=== PATIENT | female | born 1940 | race Caucasian/White ===

== ENCOUNTER 2016-03-25 21:02 | Inpatient (IN) | payer OTHER, MEDICAID ==
[~2016-03-25] VITALS: Ht 154.9 cm; Wt 64.9 kg
[~2016-03-25 21:02] MED LIST: ASA81 PO; ASPI-934 PO; BISA5TAB10 PO; BUME0.5T3 PO; BUME1TAB4 PO; CARV6.2554 PO; CEPH-568 PO; CLIN-76 PO; CLOP75TA2 PO; COLL30OI2 TP; COR25 PO; CORCR20 PO; DOCU250C PO; FENO134C PO; GABA-529 PO; HUM10VIA3 SUBCUT; INSU100V26 SQ; INSU10VI4 SQ; LOPE2CAP PO; MAGNESIUM; MULT-1089 PO; NITR1PAT6 TD; NITSL SL; OMEP20CA10 PO; PRO40 PO; SACC250C3 PO; SIMV40TA2 PO; TEMA15CA51 PO; TRAM50TA2 PO; [UNRECOGNIZED DRUG - CODE] PO
[2016-03-25 21:20] VITALS: BP 121/93; PULSE 79; RESP 18; TEMP 97.8; O2SAT 96
--- NOTE | 2016-03-25 21:20 | NUR ---
No beds available at this time. VSS. Patient in waiting room with son, able to verbalize needs, no acute distress noted. Will continue to monitor.
--- NOTE | 2016-03-25 21:55 | NUR ---
Placed in room 01 . Placed on flange machine operator, blood pressure machine and pulse oximeter. To gown for exam. Side rails up. Report given to MIGUEL Franklin.
--- NOTE | 2016-03-25 22:20 | NUR ---
Pt. brought in by son to ED with multiple complaints. C/o abdominal, back and flank pain 7-10/22. Pt. also c/o dizziness and productive cough x3 days.
--- NOTE | 2016-03-25 22:21 | NUR ---
ER at bedside examining patient.
[2016-03-25] MEDS ORDERED: NACL 0.9% 1,000 ML IV ONE (22:26)
[2016-03-25 22:49] LABS: BLOOD GAS PH 7.472 (7.350-7.450)
[2016-03-25 22:50] LABS: ABG TOTAL HEMOGLOBIN 12.5 G/dL (12.0-18.0); BLOOD GAS BASE EXCESS -3.4 mmol/L (-3.0-3.0); BLOOD GAS HHB 7.8 % (0.0-6.0); BLOOD O2Hb% 90.7 % (94.0-97.0)
--- NOTE | 2016-03-25 22:57 | NUR ---
# 20 gauge angiocath placed to Right AC. Use of asceptic technique. Opsite placed over site. Blood return noted. Flushed with 10 cc of normal saline. No evidence of infiltration noted. Patient tolerated well.
--- NOTE | 2016-03-25 22:59 | NUR ---
xray at bedside
[2016-03-25 23:04] LABS: BASOPHILS # (AUTO) 0.1 K/uL (0.0-0.2); BASOPHILS % (AUTO) 1.8 % (0.0-2.0); EOSINOPHILS % (AUTO) 0.2 % (0.0-4.0); HEMATOCRIT 35.9 % (36-48); LYMPHOCYTES # (AUTO) 0.5 K/uL (1.0-5.5); LYMPHOCYTES % (AUTO) 6.8 % (20.5-51.5); MEAN CORPUSCULAR HEMOGLOBIN 30 pg (27-31); MEAN CORPUSCULAR HGB CONC 34 % (32-36); MEAN CORPUSCULAR VOLUME 88 fL (79.0-98.0); MONOCYTES # (AUTO) 0.5 K/uL (0.0-1.0); MONOCYTES % (AUTO) 6.7 % (1.7-9.3); NEUTROPHILS # (AUTO) 6.7 K/uL (1.8-7.7); NEUTROPHILS % (AUTO) 84.5 % (40.0-70.0); PLATELET COUNT (AUTO) 228 K/uL (130-430); RED BLOOD CELL COUNT(AUTO) 4.07 MIL/uL (4.2-6.2); RED CELL DISTRIBUTION WIDTH 15.1 % (9.0-15.0); WHITE BLOOD COUNT (AUTO) 7.8 K/uL (4.8-10.8)
[2016-03-25 23:18] LABS: ANION GAP 11 (5-15); CALCIUM 8.5 mg/dL (8.4-11.0); CHLORIDE 91 mmol/L (98-107); CREATININE 1.58 mg/dL (0.55-1.30); GLUCOSE 324 mg/dL (70-99); POTASSIUM 3.6 mmol/L (3.5-5.1); SODIUM SERUM 123 mmol/L (136-145); UREA NITROGEN, BLOOD 33 mg/dL (8-21)
[2016-03-25 23:24] LABS: ALANINE AMINOTRANSFERASE 30 U/L (12-78); ALBUMIN 3.1 g/dL (3.4-4.8); ASPARTATE AMINOTRANSFERASE 81 U/L (10-37); TOTAL BILIRUBIN 1.3 mg/dL (0.0-1.0); TOTAL PROTEIN, SERUM 8.1 g/dL (6.4-8.3)
[2016-03-25] MEDS ORDERED: INSULIN REGULAR, HUMAN 10 UNITS/0.1 ML INJ IVP ONE (23:45)
[2016-03-25 23:58] LABS: BILIRUBIN,URINE 1+ (NEGATIVE); BLOOD, URINE 3+ (NEGATIVE); CLARITY/URINE HAZY (CLEAR); COLOR,URINE YELLOW (YELLOW); GLUCOSE,URINE 3+ (NEGATIVE); KETONES,URINE NEGATIVE (NEGATIVE); LEUKOCYTE ESTERASE ,URINE NEGATIVE (NEGATIVE); NITRITE, URINE POSITIVE (NEGATIVE); PROTEIN URINE 3+ (NEGATIVE)
[2016-03-26] VITALS (8 sets, daily range): BP systolic 96–156; BP diastolic 61–78; PULSE 58–82; RESP 16–24; TEMP 96.2–100.2; O2SAT 92–99
[2016-03-26] MEDS ORDERED: MORPHINE 4 MG/ML INJ. SYRINGE IVP ONE
[2016-03-26 00:12] LABS: BACTERIA,URINE MANY /HPF (None Seen); MUCUS,URINE 1+ /LPF (None Seen)
[2016-03-26] MEDS ORDERED: FUROSEMIDE 40 MG/4 ML VIAL IVP ONE (00:15)
--- NOTE | 2016-03-26 00:48 | NUR ---
Pt. transfered to [facility] 128A as per ACLS protocol, stable for transfer at this time
--- NOTE | 2016-03-26 00:51 | NUR ---
Bedside report given to receiving RN
--- NOTE | 2016-03-26 00:54 | NUR ---
ADMISSION NOTE Received patient from ER via gurney. Patient admitted with diagnosis of CHF . Patient is awake, alert, oriented X 3. Patient oriented to hospital room, call light, toileting, pain management and safety-teach back done. Patient informed that MIGUEL MILLER will be HER nurse and that their room number is 128A. Personal belongings checked and Belongings List documented. Call light within reach.
[2016-03-26] MEDS ORDERED: NOR10 PO (00:56)
[2016-03-26] MEDS ORDERED: FLA250 PO (00:56)
[2016-03-26] MEDS ORDERED: LIPA1CAP23 PO (00:56)
[2016-03-26] MEDS ORDERED: FURO20TA4 PO (00:56)
[2016-03-26] MEDS ORDERED: CEPH500C2 PO (00:56)
[2016-03-26] MEDS ORDERED: OSEL75CA PO (00:56)
[2016-03-26] MEDS ORDERED: FLU VACC QS 2016-17(36MOS+)/PF 0.5 ML/SYR SYRINGE I.M. PRN (01:30)
--- NOTE | 2016-03-26 02:45 | NUR ---
CRITICAL LAB VALUE LAB CALLED FOR POSITIVE INFLUENZA A, PAGED DR. COLON TWICE, STILL AWAITING CALL BACK. PATIENT PLACED ON ISOLATION PRECAUTIONS, SON AT BEDSIDE, MADE AWARE OF ISOLATION PRECAUTIONS, VERBALIZED UNDERSTANDING.
--- NOTE | 2016-03-26 04:06 | NUR ---
RN ROUNDS PATIENT STILL HAS TEMP OF 100.1, COOLING MEASURES APPLIED. PAGED DR. COLON, AWAITING CALL BACK.
[2016-03-26] MEDS ORDERED: ACETAMINOPHEN 325 MG TABLET ONE (06:30)
[2016-03-26] MEDS ORDERED: ACETAMINOPHEN 325 MG TABLET PO PRN (06:45)
[2016-03-26] MEDS ORDERED: BISACODYL 5 MG TABLET.DR (DULCOLAX) PO PRN (07:00)
--- NOTE | 2016-03-26 07:30 | NUR ---
OPENING NOTE REPORT RECEIVED FROM PAY PER CLICK STRATEGIST, SHELLY. PATIENT IS AWAKE, EATING BREAKFAST. TELE MONITOR SHOWS WIDENED QRS COMPLEX. WHEEZES IN LUNGS. PT REPORTS FEELING SOB, HOWEVER HER PULSE OX SHOWS 98% ON 2LMP NC. DENIES ANY PAIN AT THIS TIME, AFEBRILE BUT DIAPHORETIC. PER SHELLY PATIENT HAD FEVER OF 101 ON ADMIT. PT IS POSITIVE FOR INFLUENZA TYPE A. ISOLATION PRECAUTIONS IN PLACE. BG NOT CHECKED BY NOC PRIMARY RN AT 0700 AND PATIENT IS ALREADY EATING. WILL RECHECK BG PRIOR TO LUNCH TO GET ACCURATE NUMBER.
--- NOTE | 2016-03-26 08:30 | NUR ---
PHARMACY CALLED RE ORDERED MEDS NOT YET APPROVED
[2016-03-26] MEDS: CARVEDILOL 6.25 MG TABLET (COREG) PO SCH ×2 (09:00→23:12)
[2016-03-26] MEDS ORDERED: OSELTAMIVIR PHOSPHATE 75 MG CAPSULE PO SCH (09:00)
[2016-03-26] MEDS: FUROSEMIDE 20 MG/2 ML VIAL IVP SCH ×2 (09:00→23:14)
[2016-03-26] MEDS: amLODIPine BESYLATE 10 MG TABLET PO SCH (09:00)
--- NOTE | 2016-03-26 09:20 | NUR ---
PHARMACY CALLED RE ORDERED MEDS NOT YET APPROVED-2ND CALL
--- NOTE | 2016-03-26 09:53 | NUR ---
PHARMACY CALLED RE ORDERED MEDS NOT YET APPROVED-3RD CALL
--- NOTE | 2016-03-26 10:00 | NUR ---
PATIENT MEDICATED PER ORDERS. BP MEDS HELD AND LASIX HELD FOR LOW BLOOD PRESSURE.
[2016-03-26] MEDS: ASPIRIN 81 MG TAB.CHEW PO SCH (10:07)
[2016-03-26] MEDS: FENOFIBRATE NANOCRYSTALLIZED 48 MG TABLET (TRICOR) PO SCH (10:07)
[2016-03-26] MEDS: PENTOXIFYLLINE 400 MG TABLET.SA (TRENtal) PO SCH ×2 (10:07→23:12)
[2016-03-26] MEDS: LIPASE/PROTEASE/AMYLASE 1 CAP PO SCH ×3 (10:07→18:54)
[2016-03-26] MEDS: CLOPIDOGREL BISULFATE 75 MG TABLET PO SCH (10:10)
--- NOTE | 2016-03-26 10:31 | NUR ---
Nutrition Update Marcos Scale 18 noted. Pt admitted for CHF. Diet: CCHO, mechanical soft BMI: 25.5 kg/m2 RD to follow per nutrition care standards.
--- NOTE | 2016-03-26 10:53 | NUR ---
ASSISTED PATIENT TO THE RESTROOM.
--- NOTE | 2016-03-26 12:20 | NUR ---
family at bedside. patient is drowsy, reports butterfly feeling in her stomach. offered ice chips and crackers
[2016-03-26] MEDS: INSULIN REGULAR, HUMAN 100 UNITS/ML, 10 ML VIAL (novoLIN R) SUBCUT PRN ×2 (13:18→19:27)
[2016-03-26] MEDS ORDERED: ALBUTEROL SULFATE 0.083% 2.5 MG/3 ML VIAL.NEB INH PRN (15:30)
--- NOTE | 2016-03-26 15:30 | NUR ---
pt now reporting nausea. md is on unit to see patients
--- NOTE | 2016-03-26 15:35 | NUR ---
ENDOCRINE CONSULT Spoke with Zoe regarding request for consultation with Dr. Cerrato ([phone]) for reason: DM
[2016-03-26] MEDS ORDERED: ALBUTEROL SULFATE 0.083% 2.5 MG/3 ML VIAL.NEB INH ONE (16:15)
[2016-03-26] MEDS ORDERED: ONDANSETRON HCL 4 MG/2 ML VIAL IVP PRN (16:15)
[2016-03-26] MEDS ORDERED: LEVOFLOXACIN 500 MG/D5W 100 ML IV ONE (17:00)
--- NOTE | 2016-03-26 17:00 | NUR ---
dr gregory in to see patient. BG is 296. new orders for glucophage and antibiotics. requested yvette as well. md fernandoed
[2016-03-26] MEDS: GABAPENTIN 100 MG CAPSULE PO SCH (17:18)
--- NOTE | 2016-03-26 18:46 | NUR ---
patient ate dinner, is now resting in bed quietly. audible wheezes, pulse ox showing 98% on 2lpm.
[2016-03-26] MEDS: CEPHALEXIN 250 MG CAPSULE PO SCH ×2 (18:54→23:59)
--- NOTE | 2016-03-26 20:00 | NUR ---
Assumed care of pt this pm/paediatric thoracic physician;Assess & breath sounds as charted,otherwise no signs of distres evident
[2016-03-26] MEDS: ALBUTEROL SULFATE 0.083% 2.5 MG/3 ML VIAL.NEB INH SCH (20:50)
--- NOTE | 2016-03-26 22:00 | NUR ---
2200:pt care rounds conducted hourly;no signs of acute/worsening distress observed
[2016-03-26] MEDS: INSULIN ASPART 100 UNITS/ML, 10 ML VIAL (NovoLOG) SUBCUT PRN (23:26)
[2016-03-27] VITALS (7 sets, daily range): BP systolic 99–172; BP diastolic 54–75; PULSE 52–60; RESP 16–18; TEMP 97.5–98.7; O2SAT 97–99
--- NOTE | 2016-03-27 | NUR ---
TD=921/70:evening meds given at 2350;will recheck bp at approx 0200
[2016-03-27] MEDS: ALBUTEROL SULFATE 0.083% 2.5 MG/3 ML VIAL.NEB INH SCH ×4 (01:44→20:03)
[2016-03-27] MEDS: TEMAZEPAM 15 MG CAPSULE PO PRN ×2 (02:11→23:42)
--- NOTE | 2016-03-27 02:30 | NUR ---
PT CARE ROUNDS COMPLETED HOURLY;RESP REMAINED EVEN & REG,NO SIGNS/SYMPTOMS OF WORSENING RESP DISTRESS EVIDENT; PT SLEEPING INTERMITTENTLY;RESP EVEN & REG,OCCA AUDIBLE WHEEZING NOTED
[2016-03-27] MEDS: CEPHALEXIN 250 MG CAPSULE PO SCH ×4 (06:08→23:42)
[2016-03-27 06:23] LABS: BASOPHILS % (AUTO) 0.7 % (0.0-2.0); EOSINOPHILS # (AUTO) 0.1 K/uL (0.0-0.4); EOSINOPHILS % (AUTO) 1.9 % (0.0-4.0); HEMOGLOBIN 11.4 g/dL (12.0-16.0); LYMPHOCYTES # (AUTO) 0.9 K/uL (1.0-5.5); LYMPHOCYTES % (AUTO) 18.2 % (20.5-51.5); MEAN CORPUSCULAR HEMOGLOBIN 30 pg (27-31); MEAN CORPUSCULAR HGB CONC 34 % (32-36); MEAN CORPUSCULAR VOLUME 88 fL (79.0-98.0); MONOCYTES # (AUTO) 0.6 K/uL (0.0-1.0); MONOCYTES % (AUTO) 10.9 % (1.7-9.3); NEUTROPHILS # (AUTO) 3.5 K/uL (1.8-7.7); NEUTROPHILS % (AUTO) 68.3 % (40.0-70.0); PLATELET COUNT (AUTO) 216 K/uL (130-430); RED BLOOD CELL COUNT(AUTO) 3.86 MIL/uL (4.2-6.2); RED CELL DISTRIBUTION WIDTH 14.6 % (9.0-15.0); WHITE BLOOD COUNT (AUTO) 5.1 K/uL (4.8-10.8)
[2016-03-27 07:08] LABS: ANION GAP 9 (5-15); CALCIUM 8.7 mg/dL (8.4-11.0); CHLORIDE 98 mmol/L (98-107); CREATININE 1.47 mg/dL (0.55-1.30); GLUCOSE 88 mg/dL (70-99); PHOSPHORUS 2.9 mg/dL (2.7-4.5); SODIUM SERUM 133 mmol/L (136-145); THYROID STIMULATING HORMONE 3.94 uIu/mL (0.34-4.82); UREA NITROGEN, BLOOD 31 mg/dL (8-21)
--- NOTE | 2016-03-27 07:20 | NUR ---
0600:PT CARE ROUNDS CONDUCTED HOURLY THOUGHOUT SHIFT;RESP REMIANED EVEN & REG,NO CHANGES IN CARDIAC RHYTHM NOTED;NO SIGNS OR SYMPTOMS OF NEW OR WORSENING DISTRESS OBSERVED 0720:REPORT GIVEN & CARE SURRENDERED TO ONCOMING DAY SHIFT NURSE
--- NOTE | 2016-03-27 07:59 | NUR ---
Initial Note Received pt in bed, no s/s of distress or sob noted, pt has no c/o pain at this time, pt in stable condition, pt aaox4, verbal. IV catheter patent, no signs of infection or infiltration noted, bed at lowest position, call light within reach, will continue to monitor pt for any changes. Pt on oxygen 2 liters via nasal cannula saturation of 98%, fall precautions in place.
[2016-03-27] MEDS: LIPASE/PROTEASE/AMYLASE 1 CAP PO SCH ×3 (08:31→17:40)
[2016-03-27] MEDS: CLOPIDOGREL BISULFATE 75 MG TABLET PO SCH (08:31)
[2016-03-27] MEDS: ASPIRIN 81 MG TAB.CHEW PO SCH (08:31)
[2016-03-27] MEDS: PENTOXIFYLLINE 400 MG TABLET.SA (TRENtal) PO SCH ×2 (08:31→22:46)
[2016-03-27] MEDS: FENOFIBRATE NANOCRYSTALLIZED 48 MG TABLET (TRICOR) PO SCH (08:31)
[2016-03-27] MEDS: FUROSEMIDE 20 MG/2 ML VIAL IVP SCH ×2 (08:35→19:10)
[2016-03-27] MEDS: OSELTAMIVIR PHOSPHATE 6 MG/1 ML, 60 ML SUSP PO SCH (08:37)
[2016-03-27] MEDS: amLODIPine BESYLATE 10 MG TABLET PO SCH (08:45)
[2016-03-27] MEDS: CARVEDILOL 6.25 MG TABLET (COREG) PO SCH ×2 (09:00→22:48)
--- NOTE | 2016-03-27 10:11 | NUR ---
Rounds Pt in bed, no s/s of distress or sob noted, pt has no c/o pain at this time, pt in stable condition, pt resting comfortably, will continue to monitor pt for any changes.
[2016-03-27] MEDS: INSULIN ASPART 100 UNITS/ML, 10 ML VIAL (NovoLOG) SUBCUT PRN ×3 (11:43→22:55)
[2016-03-27] MEDS ORDERED: POTASSIUM CHLORIDE 20 MEQ TAB.PRT.SR PO ONE (15:15)
[2016-03-27] MEDS: GABAPENTIN 100 MG CAPSULE PO SCH (16:47)
--- NOTE | 2016-03-27 17:00 | NUR ---
Wound Care Consult: Wound consult ordered by Dr. Eagle. Thank you, Dr. Eagle, for the consult. Patient received in a Hill-Rom bed, awake, alert, and oriented. Skin is fair. Past medical history: CAD, CABG, Diabetes Mellitus Type 2, Hyperlipidemia, Peripheral Arterial Disease, Chronic Kidney Disease, and Diabetic Nephropathy. Labs: WBC 5.1, RBC 3.86, Hgb 11.4, Hct 34.0, Na 133, K 3.0, BUN 31, Creat 1.47, POC Gluc 208, AST 56, Alb 3.3. Intrinsic Factors that delay wound healing: Diabetes Mellitus Type 2. Extrinsic Factors that delay wound healing: Decreased mobility. Urine Culture and Blood Culture results pending. Influenza A positive. Wound Assessment: 1. Right Foot, Plantar Aspect, First Metatarsal Head: Appears to be a Diabetic Ulcer, present on admission. Wound bed is 50% black eschar, 50% yellow eschar. No odor, no drainage. Dry. Gurmeet-wound calloused with dry skin, but intact. Measures 2.7 cm x 2.1 cm. Recommend: Cleanse wound with normal Saline. Put moisture barrier cream onto gurmeet-wound. Put Venelex ointment onto wound bed. Cover with foam dressing. Perform wound care daily, and as needed for dressing soiling or dislodgement. 2. Right Medial Great Toe Small black scab with skin discoloration present. No warmth or edema. No odor, no drainage. Dry, stable. Measures 0.4 cm x 0.4 cm. Recommend: No dressing needed. Continue to monitor for worsening condition. Contact wound animal care technician if site worsens. Also recommend: Encourage and assist patient as needed with repositioning every two hours with pillow support, and off-load pressure heels and areas with pillows for pressure re-distribution. Perform skin care and monitor skin integrity q shift. Recommend surgical consult and diabetic shoes.
--- NOTE | 2016-03-27 17:33 | NUR ---
Consult called: for Dr. Aguilar (Dr. Xiomara Garay is covering), regarding CHF, ordered by Dr. Eagle, spoke with Sandro.
--- NOTE | 2016-03-27 18:09 | NUR ---
Closing Note Pt in bed, no s/s of distress or sob noted, pt has no c/o pain at this time, pt in stable condition, pt aaox4, verbal. IV catheter patent, no signs of infection or infiltration noted, bed at lowest position, call light within reach, will endorse care of pt to incoming nurse. Pt on oxygen 2 liters via nasal cannula saturation of 98%, fall precautions in place.
--- NOTE | 2016-03-27 22:00 | NUR ---
2100:Assumed care of pt this pm/overnight houseperson;assess as charted,no signs/symptoms of acute distress observed 2229:Meds: coreg held as HR=58,BP=99/54
[2016-03-27] MEDS: POTASSIUM CHLORIDE 20 MEQ TAB.PRT.SR PO SCH (22:46)
[2016-03-28] MEDS: BALSAM PERU/CASTOR OIL 60 GM OINT...G. TP SCH ×2 (00:04→08:43)
[2016-03-28 00:19] VITALS: BP 154/78; PULSE 64; RESP 16; TEMP 98.5; O2SAT 99
[2016-03-28] MEDS: ALBUTEROL SULFATE 0.083% 2.5 MG/3 ML VIAL.NEB INH SCH ×4 (00:25→19:43)
--- NOTE | 2016-03-28 03:00 | NUR ---
NOTES; RECEIVED REPORT FROM BARBARA RIVERA. PT IS IN BED, A/A/O X4. NO ACUTE DISTRESS NOTED. RESPIRATION EVEN AND UNLABORED. SAFETY MEASURES IN PROGRESS. CALL LIGHT WITHIN REACH. WILL CONTINUE TO MONITOR.
--- NOTE | 2016-03-28 03:00 | NUR ---
0000:Wound Care completed per orders & picture taken 0100:pt sleeping resp even & reg,no signs/symptoms of distress eviedent 0300:report given & care surrendered to STEVENSON Rivera
[2016-03-28 04:20] VITALS: BP 150/72; PULSE 62; RESP 17; TEMP 97.9; O2SAT 98
[2016-03-28] MEDS: ACETAMINOPHEN 325 MG TABLET PO PRN (05:18)
--- NOTE | 2016-03-28 05:20 | NUR ---
NOTES; PT IS AWAKE, C/O 4/10 LEFT SHOULDER AND BACK PAIN. TYLENOL 650MG PO ADMINISTERED.
[2016-03-28] MEDS: CEPHALEXIN 250 MG CAPSULE PO SCH ×3 (06:11→17:30)
--- NOTE | 2016-03-28 06:45 | NUR ---
NOTES; RESTING QUIETLY, NO APPARENT DISTRESS NOTED. SAFETY MEASURES IN PROGRESS. DROPLET ISOLATION OBSERVED.
[2016-03-28 06:51] LABS: BASOPHILS % (AUTO) 0.8 % (0.0-2.0); EOSINOPHILS # (AUTO) 0.2 K/uL (0.0-0.4); EOSINOPHILS % (AUTO) 5.3 % (0.0-4.0); HEMATOCRIT 36.4 % (36-48); HEMOGLOBIN 12.2 g/dL (12.0-16.0); LYMPHOCYTES # (AUTO) 1.3 K/uL (1.0-5.5); LYMPHOCYTES % (AUTO) 30.6 % (20.5-51.5); MEAN CORPUSCULAR HEMOGLOBIN 30 pg (27-31); MEAN CORPUSCULAR HGB CONC 34 % (32-36); MEAN CORPUSCULAR VOLUME 88 fL (79.0-98.0); MONOCYTES # (AUTO) 0.5 K/uL (0.0-1.0); MONOCYTES % (AUTO) 11.7 % (1.7-9.3); NEUTROPHILS # (AUTO) 2.3 K/uL (1.8-7.7); NEUTROPHILS % (AUTO) 51.6 % (40.0-70.0); PLATELET COUNT (AUTO) 252 K/uL (130-430); RED BLOOD CELL COUNT(AUTO) 4.12 MIL/uL (4.2-6.2); RED CELL DISTRIBUTION WIDTH 14.7 % (9.0-15.0); WHITE BLOOD COUNT (AUTO) 4.3 K/uL (4.8-10.8)
[2016-03-28 07:52] LABS: ANION GAP 6 (5-15); CALCIUM 8.9 mg/dL (8.4-11.0); CHLORIDE 98 mmol/L (98-107); CREATININE 1.53 mg/dL (0.55-1.30); GLUCOSE 86 mg/dL (70-99); PHOSPHORUS 2.2 mg/dL (2.7-4.5); POTASSIUM 3.8 mmol/L (3.5-5.1); SODIUM SERUM 134 mmol/L (136-145); UREA NITROGEN, BLOOD 34 mg/dL (8-21)
[2016-03-28 08:00] VITALS: BP 102/64; PULSE 46; RESP 18; TEMP 98.8; O2SAT 98
--- NOTE | 2016-03-28 08:00 | NUR ---
AM ASSESSMENT. PT ASLEEP AND AWAKENED BY VERBAL AND TACTILE STIMULI, SPEAKS MOSTLY KYRGYZ BUT WOULD SPEAK ALSO IN JAPANESE. DROPLET ISOLATION PRECAUTION. TEMP AFEBRILE. WBC 4.3. NEEDS ASSESSED AND ATTENDED. ASSISTED TO THE BATHROOM SHE DESIRED, PERSONAL HYGIENE SUCH WASHING HER FACE, ORAL CARE.
[2016-03-28] MEDS: ASPIRIN 81 MG TAB.CHEW PO SCH (08:40)
[2016-03-28] MEDS: FUROSEMIDE 20 MG/2 ML VIAL IVP SCH (08:40)
[2016-03-28] MEDS: POTASSIUM CHLORIDE 20 MEQ TAB.PRT.SR PO SCH ×2 (08:41→20:26)
[2016-03-28] MEDS: CARVEDILOL 6.25 MG TABLET (COREG) PO SCH ×2 (08:41→20:27)
[2016-03-28] MEDS: FENOFIBRATE NANOCRYSTALLIZED 48 MG TABLET (TRICOR) PO SCH (08:42)
[2016-03-28] MEDS: PENTOXIFYLLINE 400 MG TABLET.SA (TRENtal) PO SCH ×2 (08:42→20:26)
[2016-03-28] MEDS: CLOPIDOGREL BISULFATE 75 MG TABLET PO SCH (08:42)
[2016-03-28] MEDS: amLODIPine BESYLATE 10 MG TABLET PO SCH (08:42)
[2016-03-28] MEDS: OSELTAMIVIR PHOSPHATE 6 MG/1 ML, 60 ML SUSP PO SCH (08:50)
[2016-03-28] MEDS: LIPASE/PROTEASE/AMYLASE 1 CAP PO SCH ×3 (09:27→17:31)
--- NOTE | 2016-03-28 12:24 | NUR ---
FSBS. 106 MG/DL, LUNCH TRAY OPENED FOR PT. MILD SUPERVISION NEEDED.
[2016-03-28 12:50] VITALS: BP 104/62; PULSE 47; RESP 16; TEMP 97.8; O2SAT 94
[2016-03-28 15:35] VITALS: Ht 154.9 cm; Wt 64.9 kg
[2016-03-28] MEDS: GABAPENTIN 100 MG CAPSULE PO SCH (17:31)
--- NOTE | 2016-03-28 17:46 | NUR ---
2ND CALL FOR CARDIAC CONSULT CONSULT FOR DR CARRASCO..DR BERMAN IS RASPER MACHINE OPERATOR/COVERING FOR DR CARRASCO..SPOKE WITH MATEO AT DR HENNING'S EXCHANGE
--- NOTE | 2016-03-28 18:04 | NUR ---
CONSULT. DR HENNING CALLED, WILL COME IN TONIGHT OR BRAIDER SETTER TO SEE PT.
[2016-03-28] MEDS: INSULIN ASPART 100 UNITS/ML, 10 ML VIAL (NovoLOG) SUBCUT PRN ×2 (18:17→20:32)
[2016-03-28 18:31] VITALS: BP 95/57; PULSE 51; RESP 16; TEMP 96.5; O2SAT 97
[2016-03-28 20:00] VITALS: BP 127/57; PULSE 81; RESP 20; TEMP 97; O2SAT 96
[2016-03-28] MEDS: FUROSEMIDE 20 MG TABLET PO SCH (20:26)
--- NOTE | 2016-03-28 21:00 | NUR ---
NOTES; BLOOD SUGAR FOUND TO BE 185. INSULIN ADMINISTERED ASPER SLIDING SCALE ORDER.
[2016-03-29] VITALS (7 sets, daily range): BP systolic 128–144; BP diastolic 55–64; PULSE 51–80; RESP 16–20; TEMP 96.2–97.8; O2SAT 96–100
--- NOTE | 2016-03-29 00:49 | NUR ---
NOTES; PT APPEARED TO BE SLEEPING, EYES CLOSED. RESPIRATION EVEN AND UNLABORED. PT IS ON CONTINUOUS BRANDING MACHINE OPERATOR. O2 SAT 96% ON 2L OF O2 VIA NASAL CANNULAR. SAFETY MEASURES IN PROGRESS. CALL LIGHT WITHIN REACH. WILL CONTINUE TO MONITOR.
[2016-03-29] MEDS: CEPHALEXIN 250 MG CAPSULE PO SCH ×4 (00:58→18:05)
[2016-03-29] MEDS: ALBUTEROL SULFATE 0.083% 2.5 MG/3 ML VIAL.NEB INH SCH ×4 (01:17→19:54)
--- NOTE | 2016-03-29 04:00 | NUR ---
NOTES; PT APPEARED TO BE SLEEPING, EYES CLOSED. RESPIRATION EVEN AND UNLABORED. PT IS ON CONTINUOUS MOLD UNLOADER. O2 SAT 95% ON 2L OF O2 VIA NASAL CANNULAR. SAFETY MEASURES IN PROGRESS. CALL LIGHT WITHIN REACH. WILL CONTINUE TO MONITOR.
--- NOTE | 2016-03-29 05:50 | NUR ---
Notes; Blood sugar found to be 104. No insulin needed per insulin sliding scale coverage.
--- NOTE | 2016-03-29 06:00 | NUR ---
Notes; Blood sugar found to be 139. No insulin needed per insulin sliding scale coverage. Addendum: 03/29/16 at 0650 by Nicole Escalante LVN WRONG PT ENTRY
--- NOTE | 2016-03-29 06:48 | NUR ---
NOTES; RESTING QUIETLY, NO APPARENT DISTRESS NOTED. SAFETY MEASURES IN PROGRESS. DROPLET ISOLATION OBSERVED.
--- NOTE | 2016-03-29 07:20 | NUR ---
NRSG: RECEIVED PATIENT FROM NIGHT NURSE, AWAKE,ALERT AND ORIENTED X 4. RESPIRATION EVEN AND UNLABORED. LUNG CLEAR BILATERAL. HAVING MOIST COUGH INTERMITTENTLY. ABDOMEN SOFT WITH BOWEL SOUND X 4 QUADRANTS. RADIAL AND PEDAL PULSE PALPABLE. NO SOB, NO PAIN. CALL LIGHT WITHIN REACH. PATIENT ON 2 L NC AND O2 SAT. 98%.
--- NOTE | 2016-03-29 07:56 | NUR ---
PAIN : C/O OF CHEST PAIN . DR. CARRASCO WILL BE PAGED. WILL WAIT FOR THE RETURN CALL.
--- NOTE | 2016-03-29 07:58 | NUR ---
CALLED CALLED DOCTOR JUVENCIO FOR ORDERS
--- NOTE | 2016-03-29 08:30 | NUR ---
return call: DR. HENNING CALLED BACK AND NOTIFIED THAT TYLENOL WILL BE GIVEN.
[2016-03-29] MEDS: LIPASE/PROTEASE/AMYLASE 1 CAP PO SCH ×3 (08:37→18:05)
[2016-03-29] MEDS: CARVEDILOL 6.25 MG TABLET (COREG) PO SCH ×2 (08:38→21:29)
[2016-03-29] MEDS: ASPIRIN 81 MG TAB.CHEW PO SCH (08:38)
[2016-03-29] MEDS: FUROSEMIDE 20 MG TABLET PO SCH ×2 (08:39→21:30)
[2016-03-29] MEDS: amLODIPine BESYLATE 10 MG TABLET PO SCH (08:40)
[2016-03-29] MEDS: CLOPIDOGREL BISULFATE 75 MG TABLET PO SCH (08:40)
[2016-03-29] MEDS: FENOFIBRATE NANOCRYSTALLIZED 48 MG TABLET (TRICOR) PO SCH (08:41)
[2016-03-29] MEDS: ACETAMINOPHEN 325 MG TABLET PO PRN (08:42)
[2016-03-29] MEDS: POTASSIUM CHLORIDE 20 MEQ TAB.PRT.SR PO SCH ×2 (08:52→21:27)
[2016-03-29] MEDS: OSELTAMIVIR PHOSPHATE 6 MG/1 ML, 60 ML SUSP PO SCH (08:56)
[2016-03-29] MEDS: PENTOXIFYLLINE 400 MG TABLET.SA (TRENtal) PO SCH ×2 (08:57→21:27)
--- NOTE | 2016-03-29 10:20 | NUR ---
ROUNDS: SEEN BY DR. HENNING AND HAD RECOMMENDATION TO DR. COLON IN THE PROGRESS NOTES.
[2016-03-29] MEDS: BALSAM PERU/CASTOR OIL 60 GM OINT...G. TP SCH (10:34)
[2016-03-29] MEDS: INSULIN ASPART 100 UNITS/ML, 10 ML VIAL (NovoLOG) SUBCUT PRN ×3 (12:14→21:36)
--- NOTE | 2016-03-29 12:29 | NUR ---
ACTIVITY: STANDBY ASSIST TO TOILET AND SITTING ON CHAIR, NO CHEST PAIN, NO SHORTHNESS OF BREATH . O2 ON AT 2 L NC AND O2 SAT 97%.
--- NOTE | 2016-03-29 14:58 | NUR ---
ACTIVITY: RESTING ON BED, NO C/O OF CHEST PAIN, NO SHORTHNESS OF BREATH. REMAINS WITH O2 2 LNC. CALL LIGHT WITHIN REACH.
--- NOTE | 2016-03-29 16:02 | NUR ---
VISITOR: DAUGHTER AT THE BEDSIDE, PATIENT RESTING AND SLEEPING. REMAINS ON O2 AT 2 LNC AND O2 SAT. 100%. CALL LIGHT WITHIN REACH.
[2016-03-29] MEDS: GABAPENTIN 100 MG CAPSULE PO SCH (17:15)
--- NOTE | 2016-03-29 17:40 | NUR ---
ROUNDS: SEEN AND EXAMINED BY DR. COLON AND PATIENT SWITCHED TO MED-SURG STATUS.
--- NOTE | 2016-03-29 18:00 | NUR ---
NOTIFICATION: DR. COLON WAS INFORMED AND ASKED IF HE SPOKE TO DR. HENNING AND HE SAID YES. AND ALSO NOTIFIED THAT DR. HENNIGN HAD RECOMMENDATION AND WRITTEN ON THE PROGRESS NOTES.
--- NOTE | 2016-03-29 18:29 | NUR ---
CLOSING: AWAKE,ALERT AND ORIENTED X 4. DENIES OF CHEST PAIN ,NO SHORTHNESS OF BREATH, STILL WITH MOIST INTERMITTENTLY COUGH. CALL LIGHT WITHIN REACH.
--- NOTE | 2016-03-29 20:15 | NUR ---
OPENING NOTE PATIENT IS A/OX4. NO SIGNS OF DISTRESS. BREATHING IS NON LABORED. VITAL SIGNS ARE STABLE. PATIENT HAS NO COMPLAINTS OF PAIN AT THIS TIME. O2 IS FLOWING AT 2L. CALL LIGHT IS WITHIN REACH. SAFETY MEASURES ARE IN PLACE. PATIENT INSTRUCTED TO CALL FOR ASSISTANCE. WILL CONTINUE TO MONITOR.
--- NOTE | 2016-03-29 22:00 | NUR ---
ROUNDS PATIENT WAS GIVEN LOTION AND TISSUE.
[2016-03-30] VITALS (7 sets, daily range): BP systolic 124–157; BP diastolic 47–68; PULSE 50–60; RESP 16–20; TEMP 96.8–99; O2SAT 95–99
[2016-03-30] MEDS ORDERED: CEPHALEXIN 500 MG CAPSULE ONE (00:27)
[2016-03-30] MEDS ORDERED: CEPHALEXIN 250 MG/5 ML, 100 ML BTL ONE (00:29)
--- NOTE | 2016-03-30 00:30 | NUR ---
ROUNDS PATIENT IS IN BED SLEEPING. O2 NC WAS ADJUSTED IN NARES. NO SIGNS OF DISTRESS. BREATHING IS NON LABORED. WILL CONTINUE TO MONITOR.
[2016-03-30] MEDS: CEPHALEXIN 250 MG CAPSULE PO SCH ×4 (00:45→18:03)
--- NOTE | 2016-03-30 00:45 | NUR ---
0000 MEDICATION,KEFLEX, NOT GIVEN. MEDICATION IS UNAVAILABLE.
[2016-03-30] MEDS: ALBUTEROL SULFATE 0.083% 2.5 MG/3 ML VIAL.NEB INH SCH ×4 (01:00→20:31)
--- NOTE | 2016-03-30 01:50 | NUR ---
ROUNDS PATIENT IS IN BED SLEEPING. NO SIGNS OF DISTRESS. BREATHING IS NON LABORED. O2 NC WAS ADJUSTED TO NARES. CALL LIGHT IS WITHIN REACH. SAFETY MEASURES ARE IN PLACE. WILL CONTINUE TO MONITOR.
--- NOTE | 2016-03-30 03:50 | NUR ---
ROUNDS PATIENT WAS GIVEN ICE WATER
--- NOTE | 2016-03-30 05:19 | NUR ---
ROUNDS PATIENT IS IN BED SLEEPING. NO SIGNS OF DISTRESS. BREATHING IS NON LABORED. CALL LIGHT IS WITHIN REACH. SAFETY MEASURES ARE IN PLACE. WILL CONTINUE TO MONITOR.
--- NOTE | 2016-03-30 05:21 | NUR ---
0600 MEDICATION,KEFLEX, NOT GIVEN. MEDICATION IS UNAVAILABLE.
--- NOTE | 2016-03-30 07:10 | NUR ---
CHEST PAIN/CLOSING NOTES PATIENT COMPLAINED OF CHEST PAIN TO THE LEFT ARM THAT RADIATES TO LEFT SHOULDER. NO SIGNS OF DISTRESS. BREATHING IS NON LABORED. VITAL SIGNS STABLE. DR. CARRASCO WAS CALLED. NEW ORDERS RECEIVED. CARE ENDORSE TO THE MORNING NURSE.
--- NOTE | 2016-03-30 07:15 | NUR ---
Pt having chest pain during report at bedside. RT at bedside, place pt on breathing treatment. assembler 1st shift RN Xenia Aguilar.
[2016-03-30] MEDS ORDERED: NITROGLYCERIN 0.4 MG TAB.SUBL SL STA (07:34)
--- NOTE | 2016-03-30 07:38 | NUR ---
Nitro sublingual X1 tab administered per dr Aguilar stat order. for chest pain 8/10 to the left chest and the left arm.
[2016-03-30] MEDS ORDERED: NITROGLYCERIN 0.4 MG TAB.SUBL SL ONE (07:42)
[2016-03-30] MEDS ORDERED: NITROGLYCERIN 0.4 MG TAB.SUBL SL PRN (07:45)
--- NOTE | 2016-03-30 07:48 | NUR ---
Report given to Laurel RIVERA for this pt who is now placed back to telemetry.
--- NOTE | 2016-03-30 08:22 | NUR ---
Pt placed on assistant community director She also states the Nitro pill has relieved her chest pain to about a 3/10 at this time.
[2016-03-30 08:29] LABS: BASOPHILS % (AUTO) 0.6 % (0.0-2.0); EOSINOPHILS # (AUTO) 0.3 K/uL (0.0-0.4); EOSINOPHILS % (AUTO) 4.7 % (0.0-4.0); HEMATOCRIT 38.1 % (36-48); HEMOGLOBIN 12.9 g/dL (12.0-16.0); LYMPHOCYTES # (AUTO) 1.9 K/uL (1.0-5.5); LYMPHOCYTES % (AUTO) 31.6 % (20.5-51.5); MEAN CORPUSCULAR HEMOGLOBIN 29 pg (27-31); MEAN CORPUSCULAR HGB CONC 34 % (32-36); MEAN CORPUSCULAR VOLUME 87 fL (79.0-98.0); MONOCYTES # (AUTO) 0.6 K/uL (0.0-1.0); MONOCYTES % (AUTO) 10.2 % (1.7-9.3); NEUTROPHILS # (AUTO) 3.4 K/uL (1.8-7.7); NEUTROPHILS % (AUTO) 52.9 % (40.0-70.0); PLATELET COUNT (AUTO) 253 K/uL (130-430); RED BLOOD CELL COUNT(AUTO) 4.37 MIL/uL (4.2-6.2); RED CELL DISTRIBUTION WIDTH 15.2 % (9.0-15.0); WHITE BLOOD COUNT (AUTO) 6.2 K/uL (4.8-10.8)
[2016-03-30 08:36] LABS: ANION GAP 7 (5-15); CALCIUM 9.4 mg/dL (8.4-11.0); CHLORIDE 95 mmol/L (98-107); CREATININE 1.87 mg/dL (0.55-1.30); GLUCOSE 107 mg/dL (70-99); POTASSIUM 4.5 mmol/L (3.5-5.1); SODIUM SERUM 133 mmol/L (136-145); UREA NITROGEN, BLOOD 43 mg/dL (8-21)
--- NOTE | 2016-03-30 09:00 | NUR ---
rounds due meds given as ordered. no c.o chest pain at this time when asked.
[2016-03-30] MEDS: POTASSIUM CHLORIDE 20 MEQ TAB.PRT.SR PO SCH ×2 (10:10→20:50)
[2016-03-30] MEDS: FENOFIBRATE NANOCRYSTALLIZED 48 MG TABLET (TRICOR) PO SCH (10:11)
[2016-03-30] MEDS: amLODIPine BESYLATE 10 MG TABLET PO SCH (10:12)
[2016-03-30] MEDS: FUROSEMIDE 20 MG TABLET PO SCH (10:12)
[2016-03-30] MEDS: ASPIRIN 81 MG TAB.CHEW PO SCH (10:13)
[2016-03-30] MEDS: CARVEDILOL 6.25 MG TABLET (COREG) PO SCH ×2 (10:13→20:51)
[2016-03-30] MEDS: CLOPIDOGREL BISULFATE 75 MG TABLET PO SCH (10:14)
[2016-03-30] MEDS: LIPASE/PROTEASE/AMYLASE 1 CAP PO SCH ×3 (10:14→19:22)
[2016-03-30] MEDS: OSELTAMIVIR PHOSPHATE 6 MG/1 ML, 60 ML SUSP PO SCH (10:15)
[2016-03-30] MEDS: PENTOXIFYLLINE 400 MG TABLET.SA (TRENtal) PO SCH ×2 (10:17→20:50)
--- NOTE | 2016-03-30 10:38 | NUR ---
DISCHARGE PLANNING DC order to arrange home health and DME for nebulizer with medication. Due to note on previous visit patient had home health. Met with patient at bedside regarding discharge planning order. Patient could not remember home health she was previously signed on with but wanted same home health. Patient advised DCP to follow up with her son/daughter. Called patient son Fabiano Arroyo [phone] left voice message requesting return call back. Note left in patient chart for MD to sign electronic order and RX for nebulizer and medication need to be on signed progress note. MIGUEL Barragan made aware. Addendum: 03/30/16 at 1503 by Janel Huertas DP Faxed DME order to [phone] pending signed order from MD in patient chart. Faxed home health order to [facility] . Will follow up. Addendum: 03/30/16 at 1629 by Janel Huertas DP Spoke with Jayne in intake dept at [facility] no longer have bid for requested DME. Faxed contracted vendor [facility] . Will follow up. Still pending MD signature on order in patient chart.
[2016-03-30] MEDS: BALSAM PERU/CASTOR OIL 60 GM OINT...G. TP SCH (10:43)
--- NOTE | 2016-03-30 11:00 | NUR ---
rounds dr perez called and reported one time incident of chest pain this am. will come later to evaluate the patient.
[2016-03-30] MEDS: INSULIN ASPART 100 UNITS/ML, 10 ML VIAL (NovoLOG) SUBCUT PRN ×3 (12:02→20:49)
--- NOTE | 2016-03-30 14:00 | NUR ---
rounds up sitting in a chair at this time. no c/o pain no acute distress noted.
[2016-03-30] MEDS: GABAPENTIN 100 MG CAPSULE PO SCH (18:03)
--- NOTE | 2016-03-30 18:30 | NUR ---
closing notes seen by dr gregory and put in a d/c order for am. no hypo hyperglycemic reaction noted. no sob noted. no hypo hyperglycemic reaction noted. fall safety measures .
--- NOTE | 2016-03-30 19:40 | NUR ---
Initial Note Patient in bed at this time resting, respirations even and unlabored. Patient is alert and oriented. Micronesian and Belgian speaking. No acute distress noted at this time. Patient denies any chest pain at this time. Vital signs stable. Patient is on droplet precautions and followed strictly. IV site patent with no signs or symptoms of infiltration noted at this time, flushes well. Call light in hand, fall and safety precautions in place. Will continue to monitor.
--- NOTE | 2016-03-30 22:22 | NUR ---
RN ROUNDS Patient in bed at this time resting with eyes closed. Respirations even and unlabored. No acute distress noted at this time. Patient in no apparent pain or discomfort at this time. Call light in hand. Fall and safety precautions in place. will continue to monitor.
--- NOTE | 2016-03-31 | NUR ---
RN ROUNDS Patient in bed at this time resting, respirations even and unlabored. No acute distress noted at this time. Call light in hand. Fall and safety precautions in place. Will continue to monitor.
[2016-03-31 00:36] VITALS: BP 135/60; PULSE 58; RESP 18; TEMP 98.9; O2SAT 97
[2016-03-31] MEDS: ALBUTEROL SULFATE 0.083% 2.5 MG/3 ML VIAL.NEB INH SCH ×2 (00:53→07:00)
--- NOTE | 2016-03-31 02:00 | NUR ---
RN ROUNDS Patient in bed at this time resting, respirations even and unlabored. No acute distress noted at this time. Patient in no apparent pain or discomfort at this time, no facial grimacing noted. Call light in hand. Fall and safety precautions in place. Will continue to monitor.
--- NOTE | 2016-03-31 04:00 | NUR ---
RN ROUNDS Patient in bed at this time resting, respirations even and unlabored. No acute distress noted at this time. Vital signs stable. Call light in hand. Fall and safety precautions in place. Will continue to monitor.
[2016-03-31 04:43] VITALS: BP 132/62; PULSE 62; RESP 18; TEMP 98.6; O2SAT 97
[2016-03-31] MEDS: CEPHALEXIN 250 MG CAPSULE PO SCH ×2 (06:00)
--- NOTE | 2016-03-31 06:41 | NUR ---
Closing Note Patient in bed at this time resting with eyes closed. Respirations even and unlabored. No acute distress noted at this time. All due meds gvien, all needs met. Call light in hand. Fall and safety precautions in place. Will endorse to day shift nurse.
--- NOTE | 2016-03-31 08:00 | NUR ---
initial notes rec patient awake alert ambulating at the bedside and getting ready to go home. denies any pain, resp easy and unlabored. no sob noted. bed in low position and side rails up and locked. call light within reached. awaiting for family member to come and take her home.
[2016-03-31 08:35] VITALS: BP 129/62; PULSE 67; RESP 18; TEMP 98.7; O2SAT 92
[2016-03-31 08:39] VITALS: BP 129/62; PULSE 53; RESP 18; TEMP 96.6; O2SAT 92
--- NOTE | 2016-03-31 08:45 | NUR ---
rounds seen by dr perez and dr wang came prior to going home.
[2016-03-31] MEDS ORDERED: FUROSEMIDE 20 MG TABLET PO SCH (09:00)
--- NOTE | 2016-03-31 09:15 | NUR ---
closing notes daughter in law came and picked up patient. no sob noted. id band was removed and put in the shredder. answers all patient concerned. stable no sob noted. was wheeled by peter via wheelchair.
--- NOTE | 2016-03-31 10:00 | NUR ---
DISCHARGE PLANNING Order for nebulizer needed to be signed. Faxed to Dr Eagle office requesting to be signed. Order for nebulizer pending on MD signature. Called Dr Eagle office confirmed fax was received and will fax back once MD able to sign. DCP will follow up. Addendum: 03/31/16 at 1623 by Janel VELA Per MIGUEL Barragan MD discharged patient home and stated patient did not need nebulizer after all. Addendum: 03/31/16 at 1626 by Janel VELA Spoke with Chinyere at [facility] patient accepted and will have nursing staff call patient/family to make visit arrangements for tomorrow. Addendum: 03/31/16 at 1650 by Janel Huertas DP Met with Dr Eagle in nurses station, patient improved and no longer needs nebulizer. Dr Eagle did state patient needed home health, made Dr Eagle aware home health arranged and patient will be seen tomorrow.
--- NOTE | 2016-04-03 12:19 | NUR ---
Discharge Follow Up Phone Call: [employer] called and left voice mails for pt's son, Fabiano ([phone]), on 04/01/16, 04/02/16, and 04/03/16. [employer] contact information was provided and pt's son was encouraged to call back with any needs or concerns. [employer] will continue to remain available for pt or pt's son to call back, but no further follow up phone calls will be made at this time.
== END 2016-03-31 09:15 | disposition home health service (06) | DRG 291 ==
LOC: SED 21:02 → STU 03-26 00:11 → SMU 03-29 23:29 → STU 03-30 21:58
PROVIDERS: ADMIT Internal Medicine; ATTEND Internal Medicine
DX: I50.33 Acute on chronic diastolic (congestive) heart failure (principal); J96.01 Acute respiratory failure with hypoxia; N17.0 Acute kidney failure with tubular necrosis; I13.0 Hypertensive heart and chronic kidney disease with heart failure and stage 1 through stage 4 chronic kidney disease, or unspecified chronic kidney disease; N39.0 Urinary tract infection, site not specified; E87.1 Hypo-osmolality and hyponatremia; I50.32 Chronic diastolic (congestive) heart failure; J10.1 Influenza due to other identified influenza virus with other respiratory manifestations; E11.65 Type 2 diabetes mellitus with hyperglycemia; D64.9 Anemia, unspecified; N18.9 Chronic kidney disease, unspecified; I25.10 Atherosclerotic heart disease of native coronary artery without angina pectoris; E78.5 Hyperlipidemia, unspecified; B96.20 Unspecified Escherichia coli [E. coli] as the cause of diseases classified elsewhere; E11.319 Type 2 diabetes mellitus with unspecified diabetic retinopathy without macular edema; M54.12 Radiculopathy, cervical region; E11.22 Type 2 diabetes mellitus with diabetic chronic kidney disease; E11.40 Type 2 diabetes mellitus with diabetic neuropathy, unspecified; E11.621 Type 2 diabetes mellitus with foot ulcer; E11.649 Type 2 diabetes mellitus with hypoglycemia without coma; E87.6 Hypokalemia; J20.8 Acute bronchitis due to other specified organisms; J45.909 Unspecified asthma, uncomplicated; L97.519 Non-pressure chronic ulcer of other part of right foot with unspecified severity; M19.90 Unspecified osteoarthritis, unspecified site; M79.1 Myalgia; E11.51 Type 2 diabetes mellitus with diabetic peripheral angiopathy without gangrene; Z98.61 Coronary angioplasty status; Z95.1 Presence of aortocoronary bypass graft; Z88.0 Allergy status to penicillin; Z91.018 Allergy to other foods; Z79.82 Long term (current) use of aspirin; Z79.4 Long term (current) use of insulin; Z79.899 Other long term (current) drug therapy; I25.2 Old myocardial infarction
CPT/HCPCS: 36415; 36600; 71010; 73030; 80048; 80053; 81000-TC; 82803-TC; 82962; 83036; 83605; 83735-TC; 83880; 84100-TC; 84443-TC; 85025; 86710; 87040-TC; 87086; 87186-TC; 93005; 94640; 94760; 96361; 96374; 96375; 99285; G9035; J1815; J1940; J1956; J2270; J2405; J7030; J7060

== ENCOUNTER 2016-06-07 15:00 | Inpatient (IN) | payer OTHER, MEDICAID ==
[2016-03-28 15:35] VITALS: Ht 152.4 cm; Wt 63.0 kg
[~2016-06-07] VITALS: Ht 152.4 cm; Wt 63.0 kg
[2016-06-07 15:00] VITALS: BP 156/69; PULSE 66; RESP 20; TEMP 98; O2SAT 95
[~2016-06-07 15:00] MED LIST changes: +CEPH500C2 PO; +FLA250 PO; +FURO20TA4 PO; +LIPA1CAP23 PO; +NOR10 PO; +OSEL75CA PO
--- NOTE | 2016-06-07 15:00 | NUR ---
BROUGHT BACK TO BED #6 AND TRIAGED, REPORT GIVEN TO MIGUEL
--- NOTE | 2016-06-07 15:20 | NUR ---
DR. LOPEZ AT BEDSIDE EXAMINING THE PT.
--- NOTE | 2016-06-07 15:25 | NUR ---
pt. to er [id number] for multiple compliants, c/o cough and congestion for 4 days, states she has dull pain in her stomach and c/o headache 08/22, c/o nausea and back pain r/t cough, rales on auscultation lower lungs bilaterally, denies chest pain
[2016-06-07] MEDS ORDERED: IPRATROPIUM BROM 0.5 MG/2.5 ML VIAL.NEB (ATROVENT) INH ONE (15:30)
[2016-06-07] MEDS ORDERED: ALBUTEROL SULFATE 0.083% 2.5 MG/3 ML VIAL.NEB INH ONE (15:30)
--- NOTE | 2016-06-07 15:30 | NUR ---
X MADINA AT BEDSIDE Addendum: 06/07/16 at 2139 by GIO X RAY AT BEDSIDE
--- NOTE | 2016-06-07 15:44 | NUR ---
RT AT BEDSIDE FOR BREATHING TREATMENT
[2016-06-07 15:45] LABS: BASOPHILS % (AUTO) 0.4 % (0.0-2.0); EOSINOPHILS # (AUTO) 0.2 K/uL (0.0-0.4); EOSINOPHILS % (AUTO) 3.1 % (0.0-4.0); HEMATOCRIT 35.1 % (36-48); HEMOGLOBIN 11.9 g/dL (12.0-16.0); LYMPHOCYTES # (AUTO) 1.2 K/uL (1.0-5.5); LYMPHOCYTES % (AUTO) 21.7 % (20.5-51.5); MEAN CORPUSCULAR HEMOGLOBIN 31 pg (27-31); MEAN CORPUSCULAR HGB CONC 34 % (32-36); MEAN CORPUSCULAR VOLUME 90 fL (79.0-98.0); MONOCYTES # (AUTO) 0.5 K/uL (0.0-1.0); MONOCYTES % (AUTO) 9.3 % (1.7-9.3); NEUTROPHILS # (AUTO) 3.4 K/uL (1.8-7.7); NEUTROPHILS % (AUTO) 65.5 % (40.0-70.0); PLATELET COUNT (AUTO) 200 K/uL (130-430); RED BLOOD CELL COUNT(AUTO) 3.89 MIL/uL (4.2-6.2); RED CELL DISTRIBUTION WIDTH 15.1 % (9.0-15.0); WHITE BLOOD COUNT (AUTO) 5.3 K/uL (4.8-10.8)
[2016-06-07 15:47] LABS: BILIRUBIN,URINE NEGATIVE (NEGATIVE); CLARITY/URINE CLEAR (CLEAR); COLOR,URINE YELLOW (YELLOW); GLUCOSE,URINE NEGATIVE (NEGATIVE); KETONES,URINE NEGATIVE (NEGATIVE); LEUKOCYTE ESTERASE ,URINE NEGATIVE (NEGATIVE); NITRITE, URINE NEGATIVE (NEGATIVE); PROTEIN URINE 2+ (NEGATIVE)
[2016-06-07 15:50] LABS: ANION GAP 8 (5-15); CALCIUM 8.4 mg/dL (8.4-11.0); CHLORIDE 101 mmol/L (98-107); CREATININE 1.92 mg/dL (0.55-1.30); GLUCOSE 181 mg/dL (70-99); POTASSIUM 4.3 mmol/L (3.5-5.1); SODIUM SERUM 136 mmol/L (136-145); UREA NITROGEN, BLOOD 31 mg/dL (8-21)
[2016-06-07 15:53] LABS: INR 1.2 (0.8-1.2); PROTHROMBIN TIME 12.6 SECS (9.5-12.5)
[2016-06-07 15:54] LABS: BLOOD, URINE TRACE (NEGATIVE)
[2016-06-07 15:54] LABS: ALANINE AMINOTRANSFERASE 19 U/L (12-78); ALBUMIN 3.1 g/dL (3.4-4.8); AMYLASE 28 U/L (0-100); ASPARTATE AMINOTRANSFERASE 27 U/L (10-37); LIPASE 153 U/L (73-393); TOTAL BILIRUBIN 0.4 mg/dL (0.0-1.0); TOTAL PROTEIN, SERUM 7.6 g/dL (6.4-8.3)
[2016-06-07 15:57] LABS: BACTERIA,URINE FEW /HPF (None Seen); MUCUS,URINE None Seen /LPF (None Seen); RBC,URINE NONE SEEN /HPF (0-3); WBC,URINE NONE SEEN /HPF (0-3)
[2016-06-07] MEDS ORDERED: ACETAMINOPHEN 650 MG SUPP.RECT RC ONE (16:15)
--- NOTE | 2016-06-07 16:32 | NUR ---
PT. RESTING STATES THAT SHE IS COMFORTABLE DENIES ANY PAIN AT THIS TIME, IV SITE INTACT, FLUSHED WITH 10CC NS NO INFILTRATION NOTED AT THIS TIME
[2016-06-07] MEDS ORDERED: IBUP-1517 PO (17:50)
--- NOTE | 2016-06-07 17:50 | NUR ---
Medication reconciliation completed based upon medications brought in by patient.
[2016-06-07] MEDS ORDERED: ACETAMINOPHEN 325 MG TABLET PO ONE (18:00)
--- NOTE | 2016-06-07 18:00 | NUR ---
Patient will be admitted to care of DR. RASMUSSEN. Admitted to TELE unit. Will go to room 131A. Summary report printed. Report given to KELVIN RIVERA.
--- NOTE | 2016-06-07 18:04 | NUR ---
ADMISSION NOTE Received patient from ER via emeka, received report from MIGUEL RIVERA. Patient admitted with diagnosis of CHEST PAIN WITH ELEVATED TROPONIN. Patient oriented to hospital routine, call light, toileting and safety-patient verbalized understanding. Addendum: 06/07/16 at 1851 by Jovanna Marin RN On admission denies any chest pain, no shortness of breath with productive coughing with white phlegm able to expectorate, plan of care discussed with patient verbalized understanding,needs attended, dinner served.
[2016-06-07 18:12] VITALS: BP 142/74; PULSE 69; RESP 18; TEMP 97.6; O2SAT 94
[2016-06-07] MEDS ORDERED: FLU VACC QS 2016-17(36MOS+)/PF 0.5 ML/SYR SYRINGE I.M. PRN (18:45)
--- NOTE | 2016-06-07 18:50 | NUR ---
CLOSING NOTE PATIENT IS CURRENTLY RESTING IN BED, DAUGHTER AT BEDSIDE, PATIENT DOES NOT COMPLAIN OF ANY CHEST PAIN OR DISCOMFORT AT THIS TIME, WILL ENDORSE PATIENT TO HVAC PROJECT ENGINEER NURSE, CALL BABIN WITHIN PATIENT'S REACH, BED IN LOWEST POSITION, BED ALARM ON, TWO SIDE RAILS UP, FALL PRECAUTIONS IN PLACE.
[2016-06-07 20:00] VITALS: BP 135/61; PULSE 61; RESP 18; TEMP 97.6; O2SAT 95
--- NOTE | 2016-06-07 20:00 | NUR ---
Initial Notes Received patient resting in bed, awake, alert, oriented, daughter at bedside. Patient denies any acute distress or pain at this time. Breathing even and unlabored on room air, patient does note having dyspnea on exertion. IV site patent/clean/dry. Dry skin noted under right foot, patient refused to allow photo to be taken. Single point cane at bedside, patient refused offer for bedside commode when offered by MAINTAINER CENTRAL OFFICE. Educated patient on use of call light for assistance and fall precautions, patient verbalized understanding. Call light in hand, will continue to monitor.
[2016-06-07] MEDS ORDERED: ACETAMINOPHEN 325 MG TABLET PO PRN (20:30)
[2016-06-07] MEDS ORDERED: ONDANSETRON HCL 4 MG/2 ML VIAL IVP PRN (20:30)
[2016-06-07] MEDS ORDERED: DEXTROSE 50% JECT 50 ML DISP.SYRIN IVP PRN (20:30)
--- NOTE | 2016-06-07 20:30 | NUR ---
MD Rounds Dr. Eagle on unit, will see patient.
[2016-06-07] MEDS: PENTOXIFYLLINE 400 MG TABLET.SA (TRENtal) PO SCH (21:04)
[2016-06-07] MEDS: PANTOPRAZOLE SODIUM 40 MG/VIAL (PROTONIX) IVP SCH (21:04)
[2016-06-07] MEDS: 0.45% NACL 1,000 ML IV SCH (21:05)
[2016-06-07] MEDS: CARVEDILOL 6.25 MG TABLET (COREG) PO SCH (21:05)
[2016-06-07] MEDS ORDERED: IPRATROPIUM/ALBUTEROL SULFATE 3 ML AMPUL.NEB INH ONE (21:15)
--- NOTE | 2016-06-07 22:00 | NUR ---
Rounds Patient resting in bed, awake watching TV. Patient denies any acute distress or pain at this time. Breathing even and unlabored. IV site patent/clean/dry. Call light in hand, fall precautions in place. Will continue to monitor.
[2016-06-08] VITALS (7 sets, daily range): BP systolic 140–165; BP diastolic 55–76; PULSE 54–65; RESP 17–21; TEMP 95–97.7; O2SAT 93–98
--- NOTE | 2016-06-08 | NUR ---
Rounds Patient laying in bed, awake watching TV. Patient denies any acute distress or pain at this time. Breathing even and unlabored. IV site patent/clean/dry. Needs addressed. Call light in hand, will continue to monitor.
[2016-06-08] MEDS: IPRATROPIUM/ALBUTEROL SULFATE 3 ML AMPUL.NEB INH SCH ×4 (01:31→20:02)
--- NOTE | 2016-06-08 02:00 | NUR ---
Rounds Patient resting in bed with eyes closed. No acute distress noted, breathing even and unlabored. Call light in hand, fall precautions in place. Will continue to monitor.
--- NOTE | 2016-06-08 04:00 | NUR ---
Rounds Patient resting in bed with eyes closed. No acute distress noted, breathing even and unlabored. IV site patent/clean/dry. Call light in hand, will continue to monitor.
--- NOTE | 2016-06-08 06:34 | NUR ---
Closing Notes Patient resting in bed, awake watching TV. Patient denies any acute distress or pain at this time. Latest vital signs stable. IV site patent/clean/dry, no S/S infection/infiltration noted. IVF infusing per MD order. Needs addressed throughout shift. Call light in hand, fall precautions in place. Will continue to monitor for changes and safety, and endorse all patient care/needs to oncoming nurse.
[2016-06-08 06:42] LABS: BASOPHILS % (AUTO) 0.5 % (0.0-2.0); EOSINOPHILS # (AUTO) 0.2 K/uL (0.0-0.4); EOSINOPHILS % (AUTO) 4.2 % (0.0-4.0); HEMATOCRIT 33.8 % (36-48); HEMOGLOBIN 11.3 g/dL (12.0-16.0); LYMPHOCYTES # (AUTO) 1.6 K/uL (1.0-5.5); LYMPHOCYTES % (AUTO) 29.5 % (20.5-51.5); MEAN CORPUSCULAR HEMOGLOBIN 30 pg (27-31); MEAN CORPUSCULAR HGB CONC 34 % (32-36); MEAN CORPUSCULAR VOLUME 91 fL (79.0-98.0); MONOCYTES # (AUTO) 0.5 K/uL (0.0-1.0); MONOCYTES % (AUTO) 9.9 % (1.7-9.3); NEUTROPHILS # (AUTO) 3.1 K/uL (1.8-7.7); NEUTROPHILS % (AUTO) 55.9 % (40.0-70.0); PLATELET COUNT (AUTO) 192 K/uL (130-430); RED BLOOD CELL COUNT(AUTO) 3.73 MIL/uL (4.2-6.2); RED CELL DISTRIBUTION WIDTH 14.5 % (9.0-15.0); WHITE BLOOD COUNT (AUTO) 5.4 K/uL (4.8-10.8)
[2016-06-08 07:30] LABS: ALANINE AMINOTRANSFERASE 18 U/L (12-78); ALBUMIN 3.1 g/dL (3.4-4.8); ANION GAP 8 (5-15); ASPARTATE AMINOTRANSFERASE 23 U/L (10-37); CALCIUM 8.7 mg/dL (8.4-11.0); CHLORIDE 103 mmol/L (98-107); CHOLESTEROL 134 mg/dL (<200); CREATININE 1.89 mg/dL (0.55-1.30); FREE T4 (FREE THYROXINE) 1.1 ng/dL (0.6-1.6); GLUCOSE 100 mg/dL (70-99); HDL CHOLESTEROL 36 mg/dL (>55); IRON (SERUM) 45 mcg/dL (37-145); LDL CHOLESTEROL 76 mg/dL (<100); POTASSIUM 3.8 mmol/L (3.5-5.1); SODIUM SERUM 138 mmol/L (136-145); THYROID STIMULATING HORMONE 3.75 uIu/mL (0.34-4.82); TOTAL BILIRUBIN 0.5 mg/dL (0.0-1.0); TOTAL IRON BIND. CAPACITY 362 ug/dL (250-450); TOTAL PROTEIN, SERUM 7.4 g/dL (6.4-8.3); TRIGLYCERIDES 131 mg/dL (30-150); UREA NITROGEN, BLOOD 30 mg/dL (8-21)
--- NOTE | 2016-06-08 08:00 | NUR ---
OPENING NOTES RECEIVED PT IN BED, NO C/O PAIN, NO SOB, NO DISTRESS, ASSISTED TO BATHROOM, PT VOIDED, NO C/O PAIN WHEN VOIDING. ASSISTED BACK TO BED, PT AWARE OF USE CALL LIGHT.
[2016-06-08] MEDS: PENTOXIFYLLINE 400 MG TABLET.SA (TRENtal) PO SCH ×2 (08:33→20:37)
[2016-06-08] MEDS: FENOFIBRATE NANOCRYSTALLIZED 48 MG TABLET (TRICOR) PO SCH (08:33)
[2016-06-08] MEDS: PANTOPRAZOLE SODIUM 40 MG/VIAL (PROTONIX) IVP SCH ×2 (08:33→20:37)
[2016-06-08] MEDS: amLODIPine BESYLATE 10 MG TABLET PO SCH (08:34)
[2016-06-08] MEDS: CLOPIDOGREL BISULFATE 75 MG TABLET PO SCH (08:35)
[2016-06-08] MEDS: CARVEDILOL 6.25 MG TABLET (COREG) PO SCH ×2 (08:35→20:38)
[2016-06-08] MEDS: INSULIN NPH/REGULAR 70-30, 100 UNITS/ML, 10 ML VIAL SUBCUT SCH ×3 (08:53→17:00)
--- NOTE | 2016-06-08 10:00 | NUR ---
NOTES PT IN BED, NO C/O PAIN. NO SOB. INSURANCE VERIFICATION CLERK AT BEDSIDE.
--- NOTE | 2016-06-08 12:00 | NUR ---
NOTES PT SITTING ON CHAIR THIS TIME. NO C/O PAIN, NO DISTRESS. NO SOB. CALL LIGHT WITHIN REACH. REMINDED TO CALL FOR ASSISTANCE TO BATHROOM. PT STATED SHE HAS NO BM YET.
[2016-06-08] MEDS: 0.45% NACL 1,000 ML IV SCH (13:38)
--- NOTE | 2016-06-08 14:00 | NUR ---
NOTES PT IN BED, ASSISTED TO BATH ROOM AND BACK TO BED, NO SOB, NO S/S PAIN. BED IN LOW POSITION, CALLLIGHT W/IN REACH.
--- NOTE | 2016-06-08 16:00 | NUR ---
NOTES PT IN BED, NO C/O PAIN. NO SOB, NO DISTRESS. CALL LIGHT W/IN REACH. BED IN LOW POSITION.
[2016-06-08] MEDS ORDERED: GABAPENTIN 100 MG CAPSULE PO SCH (17:00)
[2016-06-08] MEDS: INSULIN REGULAR, HUMAN 100 UNITS/ML, 10 ML VIAL (novoLIN R) SUBCUT PRN (17:51)
--- NOTE | 2016-06-08 18:00 | NUR ---
CLOSING NOTES PT IN BED , NO C/O PAIN, NO SOB, BLOOD SUGAR AT 1748 WAS 75, NO COVERAGE GIVEN, HELD NOVOLIN 70/30. PT INSTRUCTED TO CALL FOR ASSIST, CALL LIGHT WITHIN REACH, BED IN LOW POSITION. WILL ENDORSE TO NIGHT NURSE.
--- NOTE | 2016-06-08 20:00 | NUR ---
PM Shift Assessment Received patient sitting up at bedside chair, AAO x4, no acute distress noted. Assessment complete, no complain of pain at this time. IV noted to left AC, IV fluids infusing well, no redness or swelling noted to IV site. Education provided to call for assistance if she needs to get out of bed, she verbalized understanding and is able to demonstrate correct use of call light. Call light is within reach, all fall and safety precautions in place, will continue to monitor.
--- NOTE | 2016-06-08 22:16 | NUR ---
RN Rounds Patient is resting quietly in bed, no acute distress noted or complain of pain at this time. Scheduled medications were administered per MD order earlier. Blood sugar was assessed, no insulin administered per sliding scale, snack provided. IV fluids infusing well. Call light is within reach, all fall and safety precautions in place, will continue to monitor.
--- NOTE | 2016-06-09 00:23 | NUR ---
RN Rounds Patient noted to be diaphoretic and lethargic, but easily arousable. Blood sugar was spot checked and noted to be low, patient able to swallow, jello, juice and sandwich provided, patient tolerated well. Blood sugar was reassessed half hour later and noted to be within normal limits. Diet education provided, patient verbalized understanding. Reminded patient to call if she needs to get out of bed, she verbalized understanding. Call light is within reach, all fall and safety precautions in place, will continue to monitor.
[2016-06-09 00:51] VITALS: BP 152/58; PULSE 53; RESP 18; TEMP 98; O2SAT 97
[2016-06-09] MEDS: IPRATROPIUM/ALBUTEROL SULFATE 3 ML AMPUL.NEB INH SCH ×3 (01:00→13:41)
--- NOTE | 2016-06-09 02:27 | NUR ---
RN Rounds Patient is sleeping but easily arousable, no acute distress noted. No signs or symptoms of hypoglycemia noted at this time. Jello provided for snack. Assisted patient to restroom and safely back to bed, warm blanket provided for comfort. Reminded patient to call for assistance when she needs to get out of bed, she verbalized understanding. Call light is within reach, all fall and safety precautions in place, will continue to monitor.
[2016-06-09] MEDS: 0.45% NACL 1,000 ML IV SCH (04:27)
--- NOTE | 2016-06-09 04:34 | NUR ---
RN Rounds Patient is sleeping but easily arousable, no acute distress noted. IV fluids infusing well. Call light is within reach, all fall and safety precautions in place, will continue to monitor.
[2016-06-09 04:59] VITALS: BP 142/64; PULSE 60; RESP 20; TEMP 98.4; O2SAT 97
--- NOTE | 2016-06-09 06:54 | NUR ---
Closing Notes Patient is sleeping but easily arousable, no acute distress noted. Blood sugar was assessed, no insulin provided per sliding scale. Patient is stable, all needs met throughout shift. Will continue to monitor until endorsed to AM nurse at bedside.
[2016-06-09 07:47] VITALS: BP 154/73; PULSE 65; RESP 17; TEMP 98.6; O2SAT 98
--- NOTE | 2016-06-09 07:55 | NUR ---
Initial Note Received pt in bed, no s/s of distress or sob noted, pt has no c/o chest pain at this time, pt in stable condition, pt aaox4, verbal. Bed at lowest position, call light within reach, will continue to monitor pt for any changes. Fall precautions in place.
[2016-06-09 08:44] LABS: ANION GAP 8 (5-15); CALCIUM 8.8 mg/dL (8.4-11.0); CHLORIDE 105 mmol/L (98-107); CREATININE 1.58 mg/dL (0.55-1.30); GLUCOSE 143 mg/dL (70-99); POTASSIUM 4.4 mmol/L (3.5-5.1); SODIUM SERUM 139 mmol/L (136-145); UREA NITROGEN, BLOOD 31 mg/dL (8-21)
[2016-06-09] MEDS: PENTOXIFYLLINE 400 MG TABLET.SA (TRENtal) PO SCH (08:46)
[2016-06-09] MEDS: CLOPIDOGREL BISULFATE 75 MG TABLET PO SCH (08:46)
[2016-06-09] MEDS: PANTOPRAZOLE SODIUM 40 MG/VIAL (PROTONIX) IVP SCH (08:46)
[2016-06-09] MEDS: amLODIPine BESYLATE 10 MG TABLET PO SCH (08:46)
[2016-06-09] MEDS: CARVEDILOL 6.25 MG TABLET (COREG) PO SCH (08:47)
[2016-06-09] MEDS: FENOFIBRATE NANOCRYSTALLIZED 48 MG TABLET (TRICOR) PO SCH (08:47)
[2016-06-09] MEDS: INSULIN NPH/REGULAR 70-30, 100 UNITS/ML, 10 ML VIAL SUBCUT SCH ×2 (08:50→13:00)
--- NOTE | 2016-06-09 10:20 | NUR ---
Rounds Pt in bed, no s/s of distress or sob noted, pt has no c/o pain at this time, pt in stable condition, pt resting comfortably, will continue to monitor pt for any changes.
[2016-06-09] MEDS: INSULIN REGULAR, HUMAN 100 UNITS/ML, 10 ML VIAL (novoLIN R) SUBCUT PRN (11:26)
[2016-06-09 12:57] LABS: HEMOGLOBIN A1C 6.8 % (4.8-5.6)
[2016-06-09 13:02] VITALS: BP 125/63; PULSE 54; RESP 16; TEMP 97.1; O2SAT 95
[2016-06-09 14:47] VITALS: BP 124/68; PULSE 65; RESP 18; TEMP 98.6; O2SAT 98
[2016-06-09 15:12] LABS: FOLATE (FOLIC ACID) 9.9 ng/mL (>3.0)
[2016-06-09 17:33] VITALS: BP 161/66; PULSE 57; RESP 16; TEMP 96.7; O2SAT 97
--- NOTE | 2016-06-18 09:55 | NUR ---
Discharge Follow Up Phone Call [employer] phoned patient, , and left a voicemail message on 06/15/16. They called back and stated it was a wrong number. IT CONSULTING DIRECTOR notified Jacqui in Admitting. [employer] phoned patient's son, Fabiano [phone], and left voicemail messages on 06/17/16 and 06/18/16 with offer of assistance and Social Service contact information. No further calls will be attempted, but [employer] will remain available upon request.
== END 2016-06-09 16:55 | disposition home or self-care (01) | DRG 391 ==
LOC: SED 15:00 → STU 17:01
PROVIDERS: ADMIT Internal Medicine; ATTEND Internal Medicine
DX: A08.4 Viral intestinal infection, unspecified (principal); N17.0 Acute kidney failure with tubular necrosis; D63.8 Anemia in other chronic diseases classified elsewhere; E11.21 Type 2 diabetes mellitus with diabetic nephropathy; E11.22 Type 2 diabetes mellitus with diabetic chronic kidney disease; E78.5 Hyperlipidemia, unspecified; E11.51 Type 2 diabetes mellitus with diabetic peripheral angiopathy without gangrene; E86.0 Dehydration; I12.9 Hypertensive chronic kidney disease with stage 1 through stage 4 chronic kidney disease, or unspecified chronic kidney disease; N18.9 Chronic kidney disease, unspecified; M10.9 Gout, unspecified; I25.10 Atherosclerotic heart disease of native coronary artery without angina pectoris; Z95.1 Presence of aortocoronary bypass graft; Z88.0 Allergy status to penicillin; Z91.018 Allergy to other foods; I25.2 Old myocardial infarction; Z79.82 Long term (current) use of aspirin; Z79.899 Other long term (current) drug therapy
CPT/HCPCS: 36415; 71010; 80048; 80053; 80061; 81000-TC; 82150-TC; 82272; 82306; 82607; 82746; 82962; 83036; 83540-TC; 83550-TC; 83690-TC; 84100-TC; 84439; 84443-TC; 84484; 85025; 85610-TC; 85730-TC; 86710; 87045-TC; 87046; 89055; 93005; 94640; 97116-GP; 99285; C9113; J1815

== ENCOUNTER 2016-06-29 19:03 | Emergency (ER) | payer OTHER, MEDICAID ==
[2016-03-28 15:35] VITALS: Ht 152.4 cm; Wt 59.9 kg
[~2016-06-29] VITALS: Ht 152.4 cm; Wt 59.9 kg
[~2016-06-29 19:03] MED LIST changes: +IBUP-1517 PO
[2016-06-29 19:05] VITALS: BP 142/65; PULSE 64; RESP 20; TEMP 97.1; O2SAT 97
--- NOTE | 2016-06-29 20:00 | NUR ---
Patient to ER bed 7 to gown for evaluation. Side rails up. Report given to Gina RN and MIGUEL Kemp.
--- NOTE | 2016-06-29 20:10 | NUR ---
Patient is stable sitting in bed with daughter at bedside. Patient states that she was pulling weeds today and dirt flew into her right eye. Patient states that she feels something in her eye. Pain of 5/10. Denies any blurred vision. No other complaints/injuries per patient or noted.
--- NOTE | 2016-06-29 20:15 | NUR ---
ER at bedside examining patient.
[2016-06-29 20:52] VITALS: BP 142/65; PULSE 64; RESP 20; TEMP 97.1; O2SAT 97
--- NOTE | 2016-06-29 20:52 | NUR ---
Patient given written and verbal discharge instructions and verbalizes understanding. ER MD discussed with patient the results and treatment provided. Patient in stable condition. ID arm band removed. Rx of NOrco, Erythromycin, and motrin given. Patient educated on pain management and to follow up with PMD x 2-3 days. Pain Scale 0/10. Opportunity for questions provided and answered.
== END 2016-06-29 20:52 | disposition home or self-care (01) ==
LOC: SED 19:03
DX: S05.01XA Injury of conjunctiva and corneal abrasion without foreign body, right eye, initial encounter (principal); I25.2 Old myocardial infarction; E11.9 Type 2 diabetes mellitus without complications; I10 Essential (primary) hypertension; Z95.1 Presence of aortocoronary bypass graft; Z88.0 Allergy status to penicillin; Z91.018 Allergy to other foods; Z79.4 Long term (current) use of insulin; W20.8XXA Other cause of strike by thrown, projected or falling object, initial encounter; Y93.H2 Activity, gardening and landscaping; Y99.8 Other external cause status; Y92.89 Other specified places as the place of occurrence of the external cause
CPT/HCPCS: 99283

== ENCOUNTER 2016-09-06 16:15 | Inpatient (IN) | payer OTHER, MEDICAID ==
[~2016-09-06] VITALS: Ht 152.4 cm; Wt 66.7 kg
[~2016-09-06 16:15] MED LIST changes: -ASA81 PO; -ASPI-934 PO; -BISA5TAB10 PO; -BUME0.5T3 PO; -BUME1TAB4 PO; -CEPH-568 PO; -CEPH500C2 PO; -CLIN-76 PO; -COLL30OI2 TP; -COR25 PO; -CORCR20 PO; -DOCU250C PO; -FLA250 PO; -FURO20TA4 PO; -INSU100V26 SQ; -INSU10VI4 SQ; -LOPE2CAP PO; -MAGNESIUM; -MULT-1089 PO; -NITR1PAT6 TD; -NITSL SL; -OMEP20CA10 PO; -OSEL75CA PO; -PRO40 PO; -SACC250C3 PO; -SIMV40TA2 PO; -TEMA15CA51 PO; -TRAM50TA2 PO
[2016-09-06 16:30] VITALS: BP_SYST 150
[2016-09-06] MEDS ORDERED: CLINDAMYCIN 300 MG/50 ML D5W 50 ML IV ONE (17:00)
[2016-09-06] MEDS ORDERED: VANCOMYCIN HCL 1,000 MG in NS 250 ML IV ONE (17:00)
[2016-09-06] MEDS ORDERED: DOCU-144 PO (17:08)
[2016-09-06] MEDS ORDERED: LOPE2CAP PO (17:08)
[2016-09-06] MEDS ORDERED: LEVO25TA7 PO (17:08)
[2016-09-06 17:36] LABS: BASOPHILS % (AUTO) 0.3 % (0.0-2.0); EOSINOPHILS # (AUTO) 0.1 K/uL (0.0-0.4); EOSINOPHILS % (AUTO) 1.9 % (0.0-4.0); HEMATOCRIT 35.2 % (36-48); HEMOGLOBIN 11.4 g/dL (12.0-16.0); LYMPHOCYTES % (AUTO) 14.3 % (20.5-51.5); MEAN CORPUSCULAR HEMOGLOBIN 29 pg (27-31); MEAN CORPUSCULAR HGB CONC 32 % (32-36); MEAN CORPUSCULAR VOLUME 89 fL (79.0-98.0); MONOCYTES # (AUTO) 0.5 K/uL (0.0-1.0); MONOCYTES % (AUTO) 6.9 % (1.7-9.3); NEUTROPHILS # (AUTO) 5.1 K/uL (1.8-7.7); NEUTROPHILS % (AUTO) 76.6 % (40.0-70.0); PLATELET COUNT (AUTO) 185 K/uL (130-430); RED BLOOD CELL COUNT(AUTO) 3.96 MIL/uL (4.2-6.2); WHITE BLOOD COUNT (AUTO) 6.7 K/uL (4.8-10.8)
[2016-09-06] MEDS ORDERED: VANCOMYCIN HCL 1000 MG/VIAL IV ONE (17:36)
[2016-09-06 17:42] LABS: ANION GAP 6 (5-15); CALCIUM 8.4 mg/dL (8.4-11.0); CHLORIDE 106 mmol/L (98-107); CREATININE 1.66 mg/dL (0.55-1.30); GLUCOSE 112 mg/dL (70-99); POTASSIUM 4.2 mmol/L (3.5-5.1); SODIUM SERUM 138 mmol/L (136-145); UREA NITROGEN, BLOOD 34 mg/dL (8-21)
[2016-09-06 17:46] LABS: INR 1.1 (0.8-1.2); PROTHROMBIN TIME 12.1 SECS (9.5-12.5)
[2016-09-06 17:47] LABS: ALANINE AMINOTRANSFERASE 18 U/L (12-78); ALBUMIN 3.1 g/dL (3.4-4.8); ASPARTATE AMINOTRANSFERASE 25 U/L (10-37); TOTAL BILIRUBIN 0.6 mg/dL (0.0-1.0)
[2016-09-06] MEDS: NACL 0.9% 1,000 ML IV SCH ×3 (18:04→20:29)
[2016-09-06] MEDS ORDERED: DIPHENHYDRAMINE INJ 50 MG/ML VIAL IVP ONE (18:15)
[2016-09-06 19:03] VITALS: BP_SYST 115
[2016-09-06] MEDS ORDERED: LEVOFLOXACIN 500 MG/D5W 100 ML IV SCH (19:45)
[2016-09-06] MEDS ORDERED: LEVOFLOXACIN 500 MG/D5W 100 ML IV ONE (20:12)
[2016-09-06] MEDS: LACTOBACILLUS RHAMNOSUS GG 1 CAP CAPSULE PO SCH (20:31)
[2016-09-07 01:28] VITALS: BP_SYST 139
[2016-09-07 05:02] VITALS: BP_SYST 117
[2016-09-07 06:44] LABS: BASOPHILS % (AUTO) 0.4 % (0.0-2.0); EOSINOPHILS # (AUTO) 0.1 K/uL (0.0-0.4); EOSINOPHILS % (AUTO) 2.5 % (0.0-4.0); HEMATOCRIT 37.4 % (36-48); HEMOGLOBIN 11.9 g/dL (12.0-16.0); LYMPHOCYTES # (AUTO) 0.9 K/uL (1.0-5.5); LYMPHOCYTES % (AUTO) 15.1 % (20.5-51.5); MEAN CORPUSCULAR HEMOGLOBIN 29 pg (27-31); MEAN CORPUSCULAR HGB CONC 32 % (32-36); MEAN CORPUSCULAR VOLUME 90 fL (79.0-98.0); MONOCYTES # (AUTO) 0.4 K/uL (0.0-1.0); MONOCYTES % (AUTO) 7.4 % (1.7-9.3); NEUTROPHILS # (AUTO) 4.4 K/uL (1.8-7.7); NEUTROPHILS % (AUTO) 74.6 % (40.0-70.0); PLATELET COUNT (AUTO) 186 K/uL (130-430); RED BLOOD CELL COUNT(AUTO) 4.18 MIL/uL (4.2-6.2); RED CELL DISTRIBUTION WIDTH 15.1 % (9.0-15.0); WHITE BLOOD COUNT (AUTO) 5.8 K/uL (4.8-10.8)
[2016-09-07 06:58] LABS: ANION GAP 4 (5-15); CALCIUM 8.2 mg/dL (8.4-11.0); CHLORIDE 106 mmol/L (98-107); CREATININE 1.45 mg/dL (0.55-1.30); GLUCOSE 90 mg/dL (70-99); SODIUM SERUM 137 mmol/L (136-145); UREA NITROGEN, BLOOD 29 mg/dL (8-21)
[2016-09-07 07:26] LABS: ERYTHROCYTE SEDIMENTATION RATE 12 MM/HR (0-20)
[2016-09-07 08:35] VITALS: BP_SYST 117
[2016-09-07] MEDS: LACTOBACILLUS RHAMNOSUS GG 1 CAP CAPSULE PO SCH ×2 (08:48→22:05)
[2016-09-07] MEDS: NACL 0.9% 1,000 ML IV SCH ×2 (08:49→22:40)
[2016-09-07] MEDS: INSULIN ASPART 100 UNITS/ML, 10 ML VIAL (NovoLOG) SUBCUT PRN ×2 (12:23→22:20)
[2016-09-07 12:36] VITALS: BP_SYST 126
[2016-09-07 16:20] VITALS: BP_SYST 165
[2016-09-07] MEDS: VANCOMYCIN HCL 750 MG in NS 250 ML IV SCH (18:30)
[2016-09-07] MEDS: HYDROcodone/ACETAMIN 5-325 MG TAB (NORCO/ VICODIN) PO PRN (18:31)
[2016-09-07] MEDS: LEVOFLOXACIN 250 MG/D5W 50 ML IV SCH (22:08)
[2016-09-08 02:05] VITALS: BP_SYST 136
[2016-09-08] MEDS: HYDROcodone/ACETAMIN 5-325 MG TAB (NORCO/ VICODIN) PO PRN ×2 (03:36→17:46)
[2016-09-08] MEDS: INSULIN ASPART 100 UNITS/ML, 10 ML VIAL (NovoLOG) SUBCUT PRN ×4 (06:36→21:39)
[2016-09-08 06:53] VITALS: BP_SYST 131
[2016-09-08 07:54] VITALS: BP_SYST 141
[2016-09-08] MEDS: LACTOBACILLUS RHAMNOSUS GG 1 CAP CAPSULE PO SCH ×2 (08:47→21:40)
[2016-09-08 10:40] VITALS: BP_SYST 150
[2016-09-08] MEDS: NACL 0.9% 1,000 ML IV SCH (10:47)
[2016-09-08 12:00] VITALS: BP_SYST 149
[2016-09-08] MEDS: HYDROcodone/ACETAMIN 5-325 MG TAB (NORCO/ VICODIN) PO SCH ×2 (14:00→21:36)
[2016-09-08 16:00] VITALS: BP_SYST 152
[2016-09-08] MEDS: VANCOMYCIN HCL 750 MG in NS 250 ML IV SCH (17:31)
[2016-09-08] MEDS ORDERED: IBUPROFEN 200 MG TABLET PO SCH (17:45)
[2016-09-08] MEDS ORDERED: LOPERAMIDE HCL 2 MG CAPSULE PO PRN (17:45)
[2016-09-08] MEDS ORDERED: MILK OF MAGNESIA 30 ML UDC PO PRN (17:45)
[2016-09-08] MEDS ORDERED: ONDANSETRON HCL 4 MG/2 ML VIAL IVP PRN (17:45)
[2016-09-08] MEDS ORDERED: NITROGLYCERIN 0.4 MG TAB.SUBL SL PRN (18:00)
[2016-09-08] MEDS: DOCUSATE SODIUM 100 MG CAPSULE PO SCH ×2 (21:00→21:35)
[2016-09-08] MEDS: LEVOFLOXACIN 250 MG/D5W 50 ML IV SCH (21:34)
[2016-09-08] MEDS: CARVEDILOL 6.25 MG TABLET (COREG) PO SCH (21:35)
[2016-09-08] MEDS: CLOPIDOGREL BISULFATE 75 MG TABLET PO SCH (21:35)
[2016-09-08] MEDS: PENTOXIFYLLINE 400 MG TABLET.SA (TRENtal) PO SCH (21:36)
[2016-09-08] MEDS ORDERED: CLOPIDOGREL BISULFATE 75 MG TABLET ONE (21:39)
[2016-09-09] VITALS (8 sets, daily range): BP systolic 118–144
[2016-09-09] MEDS: HYDROcodone/ACETAMIN 5-325 MG TAB (NORCO/ VICODIN) PO PRN (01:56)
[2016-09-09] MEDS: NACL 0.9% 1,000 ML IV SCH ×2 (02:47→16:36)
[2016-09-09] MEDS: HYDROcodone/ACETAMIN 5-325 MG TAB (NORCO/ VICODIN) PO SCH ×3 (06:00→21:37)
[2016-09-09] MEDS: LEVOTHYROXINE SODIUM 0.025 MG TABLET PO SCH (06:29)
[2016-09-09] MEDS: DOCUSATE SODIUM 100 MG CAPSULE PO SCH ×2 (09:39→21:36)
[2016-09-09] MEDS: CARVEDILOL 6.25 MG TABLET (COREG) PO SCH ×2 (09:39→21:37)
[2016-09-09] MEDS: LACTOBACILLUS RHAMNOSUS GG 1 CAP CAPSULE PO SCH ×2 (09:49→21:37)
[2016-09-09] MEDS: INSULIN NPH/REGULAR 70-30, 100 UNITS/ML, 10 ML VIAL SUBCUT SCH ×3 (09:49→16:42)
[2016-09-09] MEDS: amLODIPine BESYLATE 10 MG TABLET PO SCH (09:50)
[2016-09-09] MEDS: CLOPIDOGREL BISULFATE 75 MG TABLET PO SCH (09:51)
[2016-09-09] MEDS: PENTOXIFYLLINE 400 MG TABLET.SA (TRENtal) PO SCH ×2 (09:51→21:36)
[2016-09-09] MEDS: GABAPENTIN 100 MG CAPSULE PO SCH (16:37)
[2016-09-09] MEDS: VANCOMYCIN HCL 750 MG in NS 250 ML IV SCH (17:39)
[2016-09-09] MEDS: LEVOFLOXACIN 250 MG/D5W 50 ML IV SCH (21:36)
[2016-09-10] VITALS (7 sets, daily range): BP systolic 100–139
[2016-09-10] MEDS: HYDROcodone/ACETAMIN 5-325 MG TAB (NORCO/ VICODIN) PO PRN (01:56)
[2016-09-10] MEDS: NACL 0.9% 1,000 ML IV SCH ×2 (04:00→21:30)
[2016-09-10] MEDS: HYDROcodone/ACETAMIN 5-325 MG TAB (NORCO/ VICODIN) PO SCH ×3 (06:00→21:47)
[2016-09-10] MEDS: LEVOTHYROXINE SODIUM 0.025 MG TABLET PO SCH (06:37)
[2016-09-10] MEDS: LACTOBACILLUS RHAMNOSUS GG 1 CAP CAPSULE PO SCH ×2 (09:56→21:48)
[2016-09-10] MEDS: CLOPIDOGREL BISULFATE 75 MG TABLET PO SCH (09:56)
[2016-09-10] MEDS: amLODIPine BESYLATE 10 MG TABLET PO SCH (09:56)
[2016-09-10] MEDS: DOCUSATE SODIUM 100 MG CAPSULE PO SCH ×2 (09:56→21:47)
[2016-09-10] MEDS: PENTOXIFYLLINE 400 MG TABLET.SA (TRENtal) PO SCH ×2 (09:56→21:48)
[2016-09-10] MEDS: CARVEDILOL 6.25 MG TABLET (COREG) PO SCH ×2 (09:57→21:48)
[2016-09-10] MEDS: INSULIN NPH/REGULAR 70-30, 100 UNITS/ML, 10 ML VIAL SUBCUT SCH ×3 (10:01→16:41)
[2016-09-10] MEDS: GABAPENTIN 100 MG CAPSULE PO SCH (16:33)
[2016-09-10] MEDS: VANCOMYCIN HCL 750 MG in NS 250 ML IV SCH (17:37)
[2016-09-10] MEDS: LEVOFLOXACIN 250 MG/D5W 50 ML IV SCH (21:48)
[2016-09-11 00:24] VITALS: BP_SYST 122
[2016-09-11] MEDS: HYDROcodone/ACETAMIN 5-325 MG TAB (NORCO/ VICODIN) PO PRN (03:25)
[2016-09-11 04:23] VITALS: BP_SYST 112
[2016-09-11] MEDS: HYDROcodone/ACETAMIN 5-325 MG TAB (NORCO/ VICODIN) PO SCH ×2 (06:00→14:00)
[2016-09-11] MEDS: LEVOTHYROXINE SODIUM 0.025 MG TABLET PO SCH (06:34)
[2016-09-11 08:00] VITALS: BP_SYST 115
[2016-09-11] MEDS: INSULIN NPH/REGULAR 70-30, 100 UNITS/ML, 10 ML VIAL SUBCUT SCH ×3 (09:00→17:00)
[2016-09-11] MEDS: PENTOXIFYLLINE 400 MG TABLET.SA (TRENtal) PO SCH (09:48)
[2016-09-11] MEDS: LACTOBACILLUS RHAMNOSUS GG 1 CAP CAPSULE PO SCH (09:48)
[2016-09-11] MEDS: NACL 0.9% 1,000 ML IV SCH (09:50)
[2016-09-11] MEDS: CARVEDILOL 6.25 MG TABLET (COREG) PO SCH (09:50)
[2016-09-11] MEDS: amLODIPine BESYLATE 10 MG TABLET PO SCH (09:50)
[2016-09-11] MEDS: DOCUSATE SODIUM 100 MG CAPSULE PO SCH (09:51)
[2016-09-11] MEDS: CLOPIDOGREL BISULFATE 75 MG TABLET PO SCH (09:51)
[2016-09-11 12:47] VITALS: BP_SYST 113
[2016-09-11 16:02] VITALS: BP_SYST 109
[2016-09-11 16:43] VITALS: BP_SYST 109
[2016-09-11] MEDS: GABAPENTIN 100 MG CAPSULE PO SCH (17:26)
[2016-09-11] MEDS: VANCOMYCIN HCL 750 MG in NS 250 ML IV SCH (17:27)
[2016-09-11] MEDS: INSULIN ASPART 100 UNITS/ML, 10 ML VIAL (NovoLOG) SUBCUT PRN (17:35)
== END 2016-09-11 18:18 | disposition home or self-care (01) | DRG 638 ==
LOC: SED 16:15 → SMU 18:41
PROVIDERS: ADMIT Internal Medicine; ATTEND Family Medicine
DX: E11.69 Type 2 diabetes mellitus with other specified complication (principal); L03.116 Cellulitis of left lower limb; E46 Unspecified protein-calorie malnutrition; M86.8X7 Other osteomyelitis, ankle and foot; E11.51 Type 2 diabetes mellitus with diabetic peripheral angiopathy without gangrene; E11.22 Type 2 diabetes mellitus with diabetic chronic kidney disease; N18.9 Chronic kidney disease, unspecified; I25.10 Atherosclerotic heart disease of native coronary artery without angina pectoris; E11.40 Type 2 diabetes mellitus with diabetic neuropathy, unspecified; E03.9 Hypothyroidism, unspecified; D53.9 Nutritional anemia, unspecified; E78.5 Hyperlipidemia, unspecified; I12.9 Hypertensive chronic kidney disease with stage 1 through stage 4 chronic kidney disease, or unspecified chronic kidney disease; Z95.1 Presence of aortocoronary bypass graft; Z68.28 Body mass index [BMI] 28.0-28.9, adult; Z88.0 Allergy status to penicillin; Z91.018 Allergy to other foods; Z79.4 Long term (current) use of insulin; Z79.899 Other long term (current) drug therapy
CPT/HCPCS: 36415; 73721; 78315; 80048; 80053; 80202-TC; 82962; 83605; 85025; 85610-TC; 85651-TC; 85730-TC; 87040-TC; 93005; 93923; 96365; 96375; 99285; A9503; J1200; J1815; J1956; J2405; J3370; J3490; J7030; J7050

== ENCOUNTER 2017-01-03 04:03 | Inpatient (IN) | payer OTHER, MEDICAID ==
[~2017-01-03] VITALS: Ht 152.4 cm; Wt 58.5 kg
[~2017-01-03 04:03] MED LIST changes: +DOCU-144 PO; +LEVO25TA7 PO; +LOPE2CAP PO
[2017-01-03 04:08] VITALS: BP_SYST 146
[2017-01-03] MEDS ORDERED: ONDANSETRON HCL 4 MG/2 ML VIAL IVP ONE (04:15)
[2017-01-03] MEDS ORDERED: NACL 0.9% 1,000 ML IV ONE (04:15)
[2017-01-03] MEDS ORDERED: KETOROLAC TROMETHAMINE 30 MG VIAL IVP ONE (04:30)
[2017-01-03 04:43] LABS: BASOPHILS # (AUTO) 0.1 K/uL (0.0-0.2); BASOPHILS % (AUTO) 0.7 % (0.0-2.0); EOSINOPHILS # (AUTO) 0.2 K/uL (0.0-0.4); EOSINOPHILS % (AUTO) 2.4 % (0.0-4.0); HEMATOCRIT 39.8 % (36-48); HEMOGLOBIN 13.1 g/dL (12.0-16.0); LYMPHOCYTES % (AUTO) 21.2 % (20.5-51.5); MEAN CORPUSCULAR HEMOGLOBIN 30 pg (27-31); MEAN CORPUSCULAR HGB CONC 33 % (32-36); MEAN CORPUSCULAR VOLUME 91 fL (79.0-98.0); MONOCYTES # (AUTO) 0.9 K/uL (0.0-1.0); MONOCYTES % (AUTO) 8.9 % (1.7-9.3); NEUTROPHILS # (AUTO) 6.4 K/uL (1.8-7.7); NEUTROPHILS % (AUTO) 66.8 % (40.0-70.0); PLATELET COUNT (AUTO) 221 K/uL (130-430); RED BLOOD CELL COUNT(AUTO) 4.37 MIL/uL (4.2-6.2); RED CELL DISTRIBUTION WIDTH 15.1 % (9.0-15.0); WHITE BLOOD COUNT (AUTO) 9.6 K/uL (4.8-10.8)
[2017-01-03 04:46] LABS: ANION GAP 10 (5-15); CALCIUM 9.4 mg/dL (8.4-11.0); CHLORIDE 100 mmol/L (98-107); CREATININE 2.05 mg/dL (0.55-1.30); GLUCOSE 168 mg/dL (70-99); POTASSIUM 5.6 mmol/L (3.5-5.1); SODIUM SERUM 133 mmol/L (136-145); UREA NITROGEN, BLOOD 45 mg/dL (8-21)
[2017-01-03 04:49] LABS: INR 1.3 (0.8-1.2); PROTHROMBIN TIME 12.7 SECS (9.5-12.5)
[2017-01-03 04:50] LABS: ALANINE AMINOTRANSFERASE 30 U/L (12-78); ALBUMIN 3.4 g/dL (3.4-4.8); ASPARTATE AMINOTRANSFERASE 34 U/L (10-37); LIPASE 178 U/L (73-393); TOTAL BILIRUBIN 0.6 mg/dL (0.0-1.0)
[2017-01-03] MEDS ORDERED: CALCIUM GLUCONATE 1 GM/10 ML VIAL IVP ONE (05:00)
[2017-01-03] MEDS ORDERED: ATROPINE SULFATE 0.5 MG/5 ML SYRINGE IVP ONE (05:00)
[2017-01-03] MEDS ORDERED: SIMV10TA2 PO (05:03)
[2017-01-03] MEDS ORDERED: TRAM50TA92 PO (05:03)
[2017-01-03] MEDS ORDERED: OMEG1CAP55 PO (05:03)
[2017-01-03] MEDS ORDERED: NITSL SL (05:03)
[2017-01-03] MEDS ORDERED: INSU100V26 SUBCUT (05:03)
[2017-01-03] MEDS ORDERED: ATROPINE SULFATE 0.4 MG/ML VIAL ONE (05:09)
[2017-01-03] MEDS ORDERED: ATROPINE SULFATE 0.4 MG/ML VIAL IVP ONE (05:15)
[2017-01-03] MEDS ORDERED: FUROSEMIDE 40 MG/4 ML VIAL IVP ONE (05:15)
[2017-01-03 06:20] LABS: BILIRUBIN,URINE NEGATIVE (NEGATIVE); CLARITY/URINE CLEAR (CLEAR); COLOR,URINE YELLOW (YELLOW); GLUCOSE,URINE NEGATIVE (NEGATIVE); KETONES,URINE NEGATIVE (NEGATIVE); LEUKOCYTE ESTERASE ,URINE TRACE (NEGATIVE); NITRITE, URINE NEGATIVE (NEGATIVE); PROTEIN URINE 2+ (NEGATIVE); UROBILINOGEN,URINE 0.2 (0.2-1.0)
[2017-01-03 06:24] LABS: BLOOD, URINE TRACE (NEGATIVE)
[2017-01-03 06:40] LABS: BACTERIA,URINE MODERATE /HPF (None Seen); HYALINE CASTS, URINE 0-10 /LPF (None Seen)
[2017-01-03] MEDS ORDERED: SODIUM POLYSTYRENE SULFONATE 15 GM/60 ML UDBTL PO ONE (06:45)
[2017-01-03] MEDS ORDERED: ATROPINE SULFATE 0.5 MG/5 ML SYRINGE IVP PRN (06:45)
[2017-01-03 07:19] VITALS: BP_SYST 117
[2017-01-03] MEDS ORDERED: ACETAMINOPHEN 325 MG TABLET PO PRN (09:15)
[2017-01-03] MEDS ORDERED: traMADol HCL HCL 50 MG TABLET (ULTRAM) PO PRN (09:15)
[2017-01-03] MEDS ORDERED: NITROGLYCERIN 0.4 MG TAB.SUBL SL PRN (09:15)
[2017-01-03] MEDS ORDERED: LOPERAMIDE HCL 2 MG CAPSULE PO PRN (09:15)
[2017-01-03] MEDS ORDERED: DEXTROSE 50% JECT 50 ML DISP.SYRIN IVP PRN (09:15)
[2017-01-03] MEDS: FUROSEMIDE 40 MG/4 ML VIAL IVP ONE ×2 (09:30→09:31)
[2017-01-03] MEDS: cefTRIAXone 1 GM in D5W 50 ML IV SCH (10:54)
[2017-01-03] MEDS: ASPIRIN 81 MG TABLET(ECOTRIN) PO SCH (10:54)
[2017-01-03] MEDS: FUROSEMIDE 20 MG TABLET PO SCH ×2 (10:54→21:45)
[2017-01-03 11:32] VITALS: BP_SYST 129
[2017-01-03] MEDS: LIPASE/PROTEASE/AMYLASE 1 CAP PO SCH ×2 (12:16→17:04)
[2017-01-03] MEDS: INSULIN NPH/REGULAR 70-30, 100 UNITS/ML, 10 ML VIAL SUBCUT SCH ×2 (12:18→17:00)
[2017-01-03] MEDS ORDERED: INSULIN NPH/REGULAR 70-30, 100 UNITS/ML, 10 ML VIAL SUBCUT SCH (13:00)
[2017-01-03 15:24] VITALS: BP_SYST 118
[2017-01-03] MEDS: GABAPENTIN 100 MG CAPSULE PO SCH (17:04)
[2017-01-03 20:00] VITALS: BP_SYST 125
[2017-01-03] MEDS: DOCUSATE SODIUM 100 MG CAPSULE PO SCH (21:45)
[2017-01-03] MEDS: PENTOXIFYLLINE 400 MG TABLET.SA (TRENtal) PO SCH (21:46)
[2017-01-03] MEDS: ENOXAPARIN SODIUM 30 MG/0.3 ML SYRINGE SUBCUT SCH (21:47)
[2017-01-03] MEDS: OMEGA-3/DHA/EPA/FISH OIL 1 GM CAPSULE PO SCH (21:48)
[2017-01-04] VITALS (7 sets, daily range): BP systolic 97–124
[2017-01-04] MEDS: LEVOTHYROXINE SODIUM 0.025 MG TABLET PO SCH (06:09)
[2017-01-04 07:05] LABS: BASOPHILS % (AUTO) 0.6 % (0.0-2.0); EOSINOPHILS # (AUTO) 0.2 K/uL (0.0-0.4); EOSINOPHILS % (AUTO) 3.5 % (0.0-4.0); HEMOGLOBIN 11.8 g/dL (12.0-16.0); LYMPHOCYTES # (AUTO) 1.8 K/uL (1.0-5.5); LYMPHOCYTES % (AUTO) 25.2 % (20.5-51.5); MEAN CORPUSCULAR HEMOGLOBIN 29 pg (27-31); MEAN CORPUSCULAR HGB CONC 33 % (32-36); MEAN CORPUSCULAR VOLUME 90 fL (79.0-98.0); MONOCYTES # (AUTO) 0.6 K/uL (0.0-1.0); MONOCYTES % (AUTO) 8.6 % (1.7-9.3); NEUTROPHILS # (AUTO) 4.4 K/uL (1.8-7.7); NEUTROPHILS % (AUTO) 62.1 % (40.0-70.0); PLATELET COUNT (AUTO) 205 K/uL (130-430); RED BLOOD CELL COUNT(AUTO) 4.01 MIL/uL (4.2-6.2)
[2017-01-04 07:40] LABS: ALANINE AMINOTRANSFERASE 24 U/L (12-78); ANION GAP 8 (5-15); ASPARTATE AMINOTRANSFERASE 23 U/L (10-37); CALCIUM 9.3 mg/dL (8.4-11.0); CHLORIDE 105 mmol/L (98-107); CHOLESTEROL 119 mg/dL (<200); CREATININE 1.74 mg/dL (0.55-1.30); FREE T4 (FREE THYROXINE) 0.7 ng/dL (0.6-1.6); GLUCOSE 97 mg/dL (70-99); HDL CHOLESTEROL 37 mg/dL (>55); LDL CHOLESTEROL 64 mg/dL (<100); POTASSIUM 3.5 mmol/L (3.5-5.1); SODIUM SERUM 140 mmol/L (136-145); THYROID STIMULATING HORMONE 2.02 uIu/mL (0.34-4.82); TOTAL BILIRUBIN 0.5 mg/dL (0.0-1.0); TRIGLYCERIDES 140 mg/dL (30-150); UREA NITROGEN, BLOOD 44 mg/dL (8-21)
[2017-01-04] MEDS: amLODIPine BESYLATE 10 MG TABLET PO SCH (09:19)
[2017-01-04] MEDS: SIMVASTATIN 10 MG TABLET PO SCH (09:19)
[2017-01-04] MEDS: ASPIRIN 81 MG TABLET(ECOTRIN) PO SCH (09:19)
[2017-01-04] MEDS: OMEGA-3/DHA/EPA/FISH OIL 1 GM CAPSULE PO SCH ×2 (09:19→20:14)
[2017-01-04] MEDS: PENTOXIFYLLINE 400 MG TABLET.SA (TRENtal) PO SCH ×2 (09:19→20:13)
[2017-01-04] MEDS: DOCUSATE SODIUM 100 MG CAPSULE PO SCH ×2 (09:19→20:13)
[2017-01-04] MEDS: LIPASE/PROTEASE/AMYLASE 1 CAP PO SCH ×3 (09:19→17:45)
[2017-01-04] MEDS: FENOFIBRATE NANOCRYSTALLIZED 48 MG TABLET (TRICOR) PO SCH (09:19)
[2017-01-04] MEDS: CLOPIDOGREL BISULFATE 75 MG TABLET PO SCH (09:19)
[2017-01-04] MEDS: FUROSEMIDE 20 MG TABLET PO SCH ×2 (09:20→20:14)
[2017-01-04] MEDS: INSULIN NPH/REGULAR 70-30, 100 UNITS/ML, 10 ML VIAL SUBCUT SCH ×3 (09:25→17:03)
[2017-01-04] MEDS: cefTRIAXone 1 GM in D5W 50 ML IV SCH (09:54)
[2017-01-04] MEDS ORDERED: BISACODYL 10 MG/SUPPOSITORY RC PRN (16:30)
[2017-01-04] MEDS: GABAPENTIN 100 MG CAPSULE PO SCH (16:58)
[2017-01-04] MEDS: BISACODYL 5 MG TABLET.DR (DULCOLAX) PO PRN (16:59)
[2017-01-04] MEDS: BALSAM PERU/CASTOR OIL 60 GM OINT...G. TP SCH ×2 (17:45→21:02)
[2017-01-04] MEDS: ENOXAPARIN SODIUM 30 MG/0.3 ML SYRINGE SUBCUT SCH (20:14)
[2017-01-05 03:38] VITALS: BP_SYST 116
[2017-01-05] MEDS: LEVOTHYROXINE SODIUM 0.025 MG TABLET PO SCH (06:20)
[2017-01-05 07:27] LABS: ANION GAP 5 (5-15); CALCIUM 9.8 mg/dL (8.4-11.0); CHLORIDE 103 mmol/L (98-107); CREATININE 1.59 mg/dL (0.55-1.30); GLUCOSE 87 mg/dL (70-99); POTASSIUM 3.6 mmol/L (3.5-5.1); SODIUM SERUM 141 mmol/L (136-145); UREA NITROGEN, BLOOD 43 mg/dL (8-21)
[2017-01-05 07:50] VITALS: BP_SYST 131
[2017-01-05] MEDS: DOCUSATE SODIUM 100 MG CAPSULE PO SCH ×2 (09:08→20:56)
[2017-01-05] MEDS: FENOFIBRATE NANOCRYSTALLIZED 48 MG TABLET (TRICOR) PO SCH (09:08)
[2017-01-05] MEDS: LIPASE/PROTEASE/AMYLASE 1 CAP PO SCH ×3 (09:08→17:45)
[2017-01-05] MEDS: SIMVASTATIN 10 MG TABLET PO SCH (09:09)
[2017-01-05] MEDS: PENTOXIFYLLINE 400 MG TABLET.SA (TRENtal) PO SCH ×2 (09:09→20:57)
[2017-01-05] MEDS: ASPIRIN 81 MG TABLET(ECOTRIN) PO SCH (09:09)
[2017-01-05] MEDS: CLOPIDOGREL BISULFATE 75 MG TABLET PO SCH (09:09)
[2017-01-05] MEDS: BALSAM PERU/CASTOR OIL 60 GM OINT...G. TP SCH ×2 (09:11→22:15)
[2017-01-05] MEDS: OMEGA-3/DHA/EPA/FISH OIL 1 GM CAPSULE PO SCH ×2 (09:11→20:59)
[2017-01-05] MEDS: FUROSEMIDE 20 MG TABLET PO SCH ×2 (09:13→20:56)
[2017-01-05] MEDS: amLODIPine BESYLATE 10 MG TABLET PO SCH (09:13)
[2017-01-05] MEDS: INSULIN NPH/REGULAR 70-30, 100 UNITS/ML, 10 ML VIAL SUBCUT SCH ×3 (09:19→17:00)
[2017-01-05 11:29] VITALS: BP_SYST 124
[2017-01-05] MEDS: cefTRIAXone 1 GM in D5W 50 ML IV SCH (11:37)
[2017-01-05] MEDS: BISACODYL 5 MG TABLET.DR (DULCOLAX) PO PRN (13:34)
[2017-01-05 15:33] VITALS: BP_SYST 130
[2017-01-05] MEDS: GABAPENTIN 100 MG CAPSULE PO SCH (17:44)
[2017-01-05] MEDS ORDERED: ZOLPIDEM TARTRATE 5 MG TABLET PO ONE (19:00)
[2017-01-05 20:00] VITALS: BP_SYST 141
[2017-01-05] MEDS: ENOXAPARIN SODIUM 30 MG/0.3 ML SYRINGE SUBCUT SCH (20:57)
[2017-01-06] VITALS (7 sets, daily range): BP systolic 99–143
[2017-01-06] MEDS: LEVOTHYROXINE SODIUM 0.025 MG TABLET PO SCH (06:17)
[2017-01-06 06:47] LABS: BASOPHILS % (AUTO) 0.5 % (0.0-2.0); EOSINOPHILS # (AUTO) 0.2 K/uL (0.0-0.4); EOSINOPHILS % (AUTO) 2.9 % (0.0-4.0); HEMATOCRIT 41.9 % (36-48); HEMOGLOBIN 13.4 g/dL (12.0-16.0); LYMPHOCYTES # (AUTO) 1.7 K/uL (1.0-5.5); MEAN CORPUSCULAR HEMOGLOBIN 29 pg (27-31); MEAN CORPUSCULAR HGB CONC 32 % (32-36); MEAN CORPUSCULAR VOLUME 91 fL (79.0-98.0); MONOCYTES # (AUTO) 0.8 K/uL (0.0-1.0); MONOCYTES % (AUTO) 10.8 % (1.7-9.3); NEUTROPHILS # (AUTO) 4.5 K/uL (1.8-7.7); NEUTROPHILS % (AUTO) 61.8 % (40.0-70.0); PLATELET COUNT (AUTO) 255 K/uL (130-430); RED BLOOD CELL COUNT(AUTO) 4.63 MIL/uL (4.2-6.2); RED CELL DISTRIBUTION WIDTH 14.6 % (9.0-15.0); WHITE BLOOD COUNT (AUTO) 7.2 K/uL (4.8-10.8)
[2017-01-06 07:16] LABS: CALCIUM 9.9 mg/dL (8.4-11.0); CREATININE 1.54 mg/dL (0.55-1.30); GLUCOSE 144 mg/dL (70-99); UREA NITROGEN, BLOOD 40 mg/dL (8-21)
[2017-01-06 08:11] LABS: ANION GAP 8 (5-15); CHLORIDE 101 mmol/L (98-107); POTASSIUM 3.7 mmol/L (3.5-5.1); SODIUM SERUM 142 mmol/L (136-145)
[2017-01-06] MEDS: CLOPIDOGREL BISULFATE 75 MG TABLET PO SCH (08:38)
[2017-01-06] MEDS: BALSAM PERU/CASTOR OIL 60 GM OINT...G. TP SCH (08:38)
[2017-01-06] MEDS: DOCUSATE SODIUM 100 MG CAPSULE PO SCH (08:39)
[2017-01-06] MEDS: OMEGA-3/DHA/EPA/FISH OIL 1 GM CAPSULE PO SCH (08:39)
[2017-01-06] MEDS: FUROSEMIDE 20 MG TABLET PO SCH (08:39)
[2017-01-06] MEDS: amLODIPine BESYLATE 10 MG TABLET PO SCH (08:40)
[2017-01-06] MEDS: LIPASE/PROTEASE/AMYLASE 1 CAP PO SCH ×3 (08:41→17:45)
[2017-01-06] MEDS: FENOFIBRATE NANOCRYSTALLIZED 48 MG TABLET (TRICOR) PO SCH (08:41)
[2017-01-06] MEDS: PENTOXIFYLLINE 400 MG TABLET.SA (TRENtal) PO SCH (08:42)
[2017-01-06] MEDS: ASPIRIN 81 MG TABLET(ECOTRIN) PO SCH (08:42)
[2017-01-06] MEDS: SIMVASTATIN 10 MG TABLET PO SCH (08:42)
[2017-01-06] MEDS: INSULIN NPH/REGULAR 70-30, 100 UNITS/ML, 10 ML VIAL SUBCUT SCH ×2 (09:02→12:48)
[2017-01-06] MEDS: cefTRIAXone 1 GM in D5W 50 ML IV SCH (10:21)
[2017-01-06] MEDS ORDERED: INSULIN ASPART 100 UNITS/ML, 10 ML VIAL (NovoLOG) SUBCUT PRN (16:00)
[2017-01-06] MEDS ORDERED: INSULIN NPH/REGULAR 70-30, 100 UNITS/ML, 10 ML VIAL SUBCUT SCH (17:00)
[2017-01-06] MEDS ORDERED: BISA-79 PO (17:18)
[2017-01-06] MEDS ORDERED: FURO-150 PO (17:18)
[2017-01-06] MEDS: GABAPENTIN 100 MG CAPSULE PO SCH (17:20)
== END 2017-01-06 20:05 | disposition home or self-care (01) | DRG 291 ==
LOC: SED 04:03 → STU 06:37
PROVIDERS: ADMIT Internal Medicine; ATTEND Internal Medicine
DX: I13.0 Hypertensive heart and chronic kidney disease with heart failure and stage 1 through stage 4 chronic kidney disease, or unspecified chronic kidney disease (principal); I50.43 Acute on chronic combined systolic (congestive) and diastolic (congestive) heart failure; N17.0 Acute kidney failure with tubular necrosis; E44.1 Mild protein-calorie malnutrition; R00.1 Bradycardia, unspecified; E03.9 Hypothyroidism, unspecified; E11.22 Type 2 diabetes mellitus with diabetic chronic kidney disease; E11.319 Type 2 diabetes mellitus with unspecified diabetic retinopathy without macular edema; E11.649 Type 2 diabetes mellitus with hypoglycemia without coma; E11.42 Type 2 diabetes mellitus with diabetic polyneuropathy; E11.51 Type 2 diabetes mellitus with diabetic peripheral angiopathy without gangrene; E78.5 Hyperlipidemia, unspecified; I25.10 Atherosclerotic heart disease of native coronary artery without angina pectoris; K59.00 Constipation, unspecified; N18.9 Chronic kidney disease, unspecified; Z79.4 Long term (current) use of insulin; Z79.899 Other long term (current) drug therapy; Z95.1 Presence of aortocoronary bypass graft; Z88.0 Allergy status to penicillin; Z88.8 Allergy status to other drugs, medicaments and biological substances; Z90.49 Acquired absence of other specified parts of digestive tract
CPT/HCPCS: 36415; 71010; 76770; 80048; 80053; 80061; 81000-TC; 82962; 83036; 83605; 83690-TC; 83735-TC; 83880; 84439; 84443-TC; 84484; 85025; 85610-TC; 85730-TC; 87040-TC; 87081; 87086; 93005; 93306; 96361; 96374; 96375; 97110-GP; 97116-GP; 97530-GP; 99291; J0461; J0610; J0696; J1650; J1815; J1885; J1940; J2405; J7030; J7040; J7060

== ENCOUNTER 2017-11-06 19:07 | Emergency (ER) | payer OTHER, MEDICAID ==
[~2017-11-06] VITALS: Ht 152.4 cm; Wt 59.0 kg
[~2017-11-06 19:07] MED LIST changes: +ASPI-1153 PO; +BISA-79 PO; -DOCU-144 PO; +FURO-150 PO; -IBUP-1517 PO; +INSU100V26 SUBCUT; -LIPA1CAP23 PO; -LOPE2CAP PO; +NITSL SL; +OMEG1CAP55 PO; +TRAM50TA92 PO; +VITD2000 PO
[2017-11-06 19:12] VITALS: BP_SYST 158
[2017-11-06] MEDS ORDERED: DOCU250C14 PO (20:07)
[2017-11-06] MEDS ORDERED: MORPHINE 2 MG/ML INJ. SYRINGE IVP ONE (20:15)
[2017-11-06] MEDS ORDERED: DIPHENHYDRAMINE INJ 50 MG/ML VIAL IVP ONE (20:15)
[2017-11-06 20:48] LABS: BASOPHILS % (AUTO) 0.3 % (0.0-2.0); EOSINOPHILS # (AUTO) 0.1 K/uL (0.0-0.4); HEMATOCRIT 36.7 % (36-48); HEMOGLOBIN 12.1 g/dL (12.0-16.0); LYMPHOCYTES % (AUTO) 13.2 % (20.5-51.5); MEAN CORPUSCULAR HEMOGLOBIN 30 pg (27-31); MEAN CORPUSCULAR HGB CONC 33 % (32-36); MEAN CORPUSCULAR VOLUME 91 fL (79.0-98.0); MONOCYTES # (AUTO) 0.5 K/uL (0.0-1.0); MONOCYTES % (AUTO) 6.9 % (1.7-9.3); NEUTROPHILS # (AUTO) 6.2 K/uL (1.8-7.7); NEUTROPHILS % (AUTO) 78.6 % (40.0-70.0); PLATELET COUNT (AUTO) 223 K/uL (130-430); RED BLOOD CELL COUNT(AUTO) 4.02 MIL/uL (4.2-6.2); RED CELL DISTRIBUTION WIDTH 16.1 % (9.0-15.0); WHITE BLOOD COUNT (AUTO) 7.8 K/uL (4.8-10.8)
[2017-11-06 20:53] LABS: ANION GAP 6 (5-15); CHLORIDE 100 mmol/L (98-107); CREATININE 1.67 mg/dL (0.55-1.30); GLUCOSE 208 mg/dL (70-99); INR 1.2 (0.8-1.2); POTASSIUM 3.8 mmol/L (3.5-5.1); PROTHROMBIN TIME 11.9 SECS (9.5-12.5); SODIUM SERUM 134 mmol/L (136-145); UREA NITROGEN, BLOOD 31 mg/dL (8-21)
[2017-11-06 20:58] LABS: ALANINE AMINOTRANSFERASE 29 U/L (12-78); ASPARTATE AMINOTRANSFERASE 20 U/L (10-37); TOTAL BILIRUBIN 0.6 mg/dL (0.0-1.0)
[2017-11-06 20:58] LABS: BILIRUBIN,URINE NEGATIVE (NEGATIVE); BLOOD, URINE 1+ (NEGATIVE); CLARITY/URINE CLEAR (CLEAR); COLOR,URINE YELLOW (YELLOW); GLUCOSE,URINE NEGATIVE (NEGATIVE); KETONES,URINE NEGATIVE (NEGATIVE); LEUKOCYTE ESTERASE ,URINE NEGATIVE (NEGATIVE); NITRITE, URINE NEGATIVE (NEGATIVE); PROTEIN URINE 2+ (NEGATIVE); UROBILINOGEN,URINE 0.2 (0.2-1.0)
[2017-11-06 21:05] LABS: BACTERIA,URINE FEW /HPF (None Seen); MUCUS,URINE None Seen /LPF (None Seen); RBC,URINE 0-3 /HPF (0-3); WBC,URINE 0-3 /HPF (0-3)
[2017-11-06 23:00] VITALS: BP_SYST 151
[2017-11-06] MEDS ORDERED: LEVOFLOXACIN 500 MG TABLET PO ONE (23:00)
== END 2017-11-06 19:10 | disposition home or self-care (01) ==
LOC: SED 19:07
DX: L03.115 Cellulitis of right lower limb (principal); I10 Essential (primary) hypertension; E78.00 Pure hypercholesterolemia, unspecified; Z79.899 Other long term (current) drug therapy; Z88.0 Allergy status to penicillin; Z91.018 Allergy to other foods
CPT/HCPCS: 36415; 71045; 80053; 81000; 83605; 85025; 85610; 87040; 93005; 93971; 96374; 96375; 99285; J2270

== ENCOUNTER 2017-11-12 12:25 | Inpatient (IN) | payer OTHER, MEDICAID ==
[~2017-11-12] VITALS: Ht 157.5 cm; Wt 59.4 kg
[~2017-11-12 12:25] MED LIST changes: -ASPI-1153 PO; -BISA-79 PO; +DOCU250C14 PO; -LEVO25TA7 PO; -NOR10 PO
[2017-11-12 12:54] VITALS: BP_SYST 159
[2017-11-12 14:44] LABS: BASOPHILS % (AUTO) 0.5 % (0.0-2.0); EOSINOPHILS # (AUTO) 0.1 K/uL (0.0-0.4); EOSINOPHILS % (AUTO) 1.8 % (0.0-4.0); HEMATOCRIT 37.3 % (36-48); HEMOGLOBIN 12.4 g/dL (12.0-16.0); LYMPHOCYTES # (AUTO) 0.9 K/uL (1.0-5.5); LYMPHOCYTES % (AUTO) 14.1 % (20.5-51.5); MEAN CORPUSCULAR HEMOGLOBIN 30 pg (27-31); MEAN CORPUSCULAR HGB CONC 33 % (32-36); MEAN CORPUSCULAR VOLUME 91 fL (79.0-98.0); MONOCYTES # (AUTO) 0.5 K/uL (0.0-1.0); MONOCYTES % (AUTO) 8.4 % (1.7-9.3); NEUTROPHILS % (AUTO) 75.2 % (40.0-70.0); PLATELET COUNT (AUTO) 201 K/uL (130-430); RED BLOOD CELL COUNT(AUTO) 4.09 MIL/uL (4.2-6.2); RED CELL DISTRIBUTION WIDTH 15.7 % (9.0-15.0); WHITE BLOOD COUNT (AUTO) 6.5 K/uL (4.8-10.8)
[2017-11-12] MEDS ORDERED: INSULIN REGULAR, HUMAN 100 UNITS/ML, 10 ML VIAL (novoLIN R) SUBCUT PRN (14:45)
[2017-11-12] MEDS ORDERED: NITROGLYCERIN 0.4 MG TAB.SUBL SL PRN (14:45)
[2017-11-12] MEDS ORDERED: DOCUSATE SODIUM 250 MG CAPSULE PO PRN (14:45)
[2017-11-12] MEDS ORDERED: DEXTROSE 50% JECT 50 ML DISP.SYRIN IVP PRN ×2 (14:45→15:30)
[2017-11-12 14:47] LABS: ALANINE AMINOTRANSFERASE 36 U/L (12-78); ALBUMIN 2.8 g/dL (3.4-4.8); ANION GAP 5 (5-15); ASPARTATE AMINOTRANSFERASE 24 U/L (10-37); CALCIUM 8.6 mg/dL (8.4-11.0); CHLORIDE 103 mmol/L (98-107); CREATININE 1.54 mg/dL (0.55-1.30); GLUCOSE 214 mg/dL (70-99); POTASSIUM 3.7 mmol/L (3.5-5.1); SODIUM SERUM 135 mmol/L (136-145); TOTAL BILIRUBIN 0.6 mg/dL (0.0-1.0); UREA NITROGEN, BLOOD 28 mg/dL (8-21)
[2017-11-12] MEDS ORDERED: LEVOFLOXACIN 250 MG/D5W 50 ML IV SCH (15:15)
[2017-11-12] MEDS ORDERED: TYC3 PO (15:15)
[2017-11-12] MEDS ORDERED: ACETAMINOPHEN 325 MG TABLET PO PRN (15:15)
[2017-11-12] MEDS ORDERED: LEVOFLOXACIN 250 MG/D5W 50 ML IV ONE (15:18)
[2017-11-12 15:36] VITALS: BP_SYST 141
[2017-11-12] MEDS ORDERED: INSULIN NPH/REGULAR 70-30, 100 UNITS/ML, 10 ML VIAL SUBCUT SCH (17:00)
[2017-11-12] MEDS: CLINDAMYCIN 600 mg/50mL D5W 50 ML IV SCH (17:12)
[2017-11-12] MEDS: INSULIN ASPART 100 UNITS/ML, 10 ML VIAL (NovoLOG) SUBCUT PRN (17:14)
[2017-11-12] MEDS: GABAPENTIN 100 MG CAPSULE PO SCH (17:16)
[2017-11-12] MEDS: traMADol HCL HCL 50 MG TABLET (ULTRAM) PO PRN (17:36)
[2017-11-12 20:19] LABS: BILIRUBIN,URINE NEGATIVE (NEGATIVE); BLOOD, URINE 1+ (NEGATIVE); CLARITY/URINE CLEAR (CLEAR); COLOR,URINE YELLOW (YELLOW); GLUCOSE,URINE TRACE (NEGATIVE); KETONES,URINE NEGATIVE (NEGATIVE); LEUKOCYTE ESTERASE ,URINE NEGATIVE (NEGATIVE); NITRITE, URINE NEGATIVE (NEGATIVE); PH,URINE 6.5 (5.0-8.0); PROTEIN URINE 3+ (NEGATIVE); UROBILINOGEN,URINE 0.2 (0.2-1.0)
[2017-11-12 20:27] LABS: BACTERIA,URINE FEW /HPF (None Seen)
[2017-11-12] MEDS: PENTOXIFYLLINE 400 MG TABLET.SA (TRENtal) PO SCH (20:41)
[2017-11-12] MEDS: LACTOBACILLUS RHAMNOSUS GG 1 CAP CAPSULE PO SCH (20:41)
[2017-11-12] MEDS: CARVEDILOL 6.25 MG TABLET (COREG) PO SCH (20:42)
[2017-11-12] MEDS: ENOXAPARIN SODIUM 30 MG/0.3 ML SYRINGE SUBCUT SCH (20:42)
[2017-11-12] MEDS: OMEGA-3/DHA/EPA/FISH OIL 1 GM CAPSULE PO SCH (20:43)
[2017-11-12] MEDS: FUROSEMIDE 20 MG TABLET PO SCH (20:43)
[2017-11-12 20:52] VITALS: BP_SYST 129
[2017-11-13 00:09] VITALS: BP_SYST 119
[2017-11-13] MEDS: CLINDAMYCIN 600 mg/50mL D5W 50 ML IV SCH ×4 (00:22→16:59)
[2017-11-13 06:35] LABS: BASOPHILS % (AUTO) 0.6 % (0.0-2.0); EOSINOPHILS # (AUTO) 0.2 K/uL (0.0-0.4); HEMATOCRIT 31.7 % (36-48); HEMOGLOBIN 10.9 g/dL (12.0-16.0); LYMPHOCYTES # (AUTO) 1.3 K/uL (1.0-5.5); MEAN CORPUSCULAR HEMOGLOBIN 31 pg (27-31); MEAN CORPUSCULAR HGB CONC 34 % (32-36); MEAN CORPUSCULAR VOLUME 90 fL (79.0-98.0); MONOCYTES # (AUTO) 0.6 K/uL (0.0-1.0); MONOCYTES % (AUTO) 10.4 % (1.7-9.3); NEUTROPHILS # (AUTO) 3.7 K/uL (1.8-7.7); PLATELET COUNT (AUTO) 165 K/uL (130-430); RED BLOOD CELL COUNT(AUTO) 3.52 MIL/uL (4.2-6.2); RED CELL DISTRIBUTION WIDTH 15.6 % (9.0-15.0); WHITE BLOOD COUNT (AUTO) 5.8 K/uL (4.8-10.8)
[2017-11-13 06:44] LABS: ANION GAP 7 (5-15); CALCIUM 8.4 mg/dL (8.4-11.0); CHLORIDE 102 mmol/L (98-107); GLUCOSE 91 mg/dL (70-99); POTASSIUM 3.7 mmol/L (3.5-5.1); SODIUM SERUM 137 mmol/L (136-145); UREA NITROGEN, BLOOD 29 mg/dL (8-21)
[2017-11-13] MEDS ORDERED: INSULIN NPH/REGULAR 70-30, 100 UNITS/ML, 10 ML VIAL SUBCUT SCH (07:00)
[2017-11-13 07:04] LABS: FREE T4 (FREE THYROXINE) 1.1 ng/dl (0.8-1.5); THYROID STIMULATING HORMONE 4.33 uIu/mL (0.36-3.74)
[2017-11-13 08:00] VITALS: BP_SYST 122
[2017-11-13] MEDS: CHOLECALCIFEROL (VITAMIN D3) 2,000 UNIT TABLET PO SCH (08:45)
[2017-11-13] MEDS: OMEGA-3/DHA/EPA/FISH OIL 1 GM CAPSULE PO SCH ×2 (08:45→20:46)
[2017-11-13] MEDS: LEVOFLOXACIN 250 MG/D5W 50 ML IV SCH (08:45)
[2017-11-13] MEDS: PENTOXIFYLLINE 400 MG TABLET.SA (TRENtal) PO SCH ×2 (08:46→20:46)
[2017-11-13] MEDS: CLOPIDOGREL BISULFATE 75 MG TABLET PO SCH (08:46)
[2017-11-13] MEDS: LACTOBACILLUS RHAMNOSUS GG 1 CAP CAPSULE PO SCH ×2 (08:46→20:46)
[2017-11-13] MEDS: FUROSEMIDE 20 MG TABLET PO SCH ×2 (08:46→20:46)
[2017-11-13] MEDS: CARVEDILOL 6.25 MG TABLET (COREG) PO SCH ×2 (08:47→20:49)
[2017-11-13] MEDS ORDERED: NON-FORMULARY MEDICATION (Fenofibrate,Micronized (Fenofibrate) 134 MG) PO SCH (09:00)
[2017-11-13 11:29] VITALS: BP_SYST 107
[2017-11-13 15:52] VITALS: BP_SYST 131
[2017-11-13 15:58] LABS: TOTAL IRON BIND. CAPACITY 228 ug/dL (250-450)
[2017-11-13] MEDS: INSULIN NPH/REGULAR 70-30, 100 UNITS/ML, 10 ML VIAL SUBCUT SCH (17:00)
[2017-11-13] MEDS: GABAPENTIN 100 MG CAPSULE PO SCH (17:04)
[2017-11-13 20:37] VITALS: BP_SYST 140
[2017-11-13] MEDS: ENOXAPARIN SODIUM 30 MG/0.3 ML SYRINGE SUBCUT SCH (20:48)
[2017-11-13] MEDS: INSULIN ASPART 100 UNITS/ML, 10 ML VIAL (NovoLOG) SUBCUT PRN (20:57)
[2017-11-14] MEDS: CLINDAMYCIN 600 mg/50mL D5W 50 ML IV SCH ×5 (00:13→23:37)
[2017-11-14] MEDS: traMADol HCL HCL 50 MG TABLET (ULTRAM) PO PRN ×2 (00:21→19:55)
[2017-11-14 00:30] VITALS: BP_SYST 123
[2017-11-14] MEDS: LEVOTHYROXINE SODIUM 0.025 MG TABLET PO SCH (06:02)
[2017-11-14] MEDS: INSULIN NPH/REGULAR 70-30, 100 UNITS/ML, 10 ML VIAL SUBCUT SCH ×2 (07:10→17:31)
[2017-11-14 08:15] VITALS: BP_SYST 120
[2017-11-14] MEDS: LEVOFLOXACIN 250 MG/D5W 50 ML IV SCH (08:39)
[2017-11-14] MEDS: OMEGA-3/DHA/EPA/FISH OIL 1 GM CAPSULE PO SCH ×2 (08:39→23:35)
[2017-11-14] MEDS: LACTOBACILLUS RHAMNOSUS GG 1 CAP CAPSULE PO SCH ×2 (08:39→23:34)
[2017-11-14] MEDS: CHOLECALCIFEROL (VITAMIN D3) 2,000 UNIT TABLET PO SCH (08:40)
[2017-11-14] MEDS: PENTOXIFYLLINE 400 MG TABLET.SA (TRENtal) PO SCH ×2 (08:40→21:00)
[2017-11-14] MEDS: CARVEDILOL 6.25 MG TABLET (COREG) PO SCH ×2 (08:40→21:00)
[2017-11-14] MEDS: FUROSEMIDE 20 MG TABLET PO SCH ×2 (08:40→23:35)
[2017-11-14] MEDS: CLOPIDOGREL BISULFATE 75 MG TABLET PO SCH (08:40)
[2017-11-14 11:33] VITALS: BP_SYST 123
[2017-11-14 15:50] VITALS: BP_SYST 123
[2017-11-14] MEDS: GABAPENTIN 100 MG CAPSULE PO SCH (17:27)
[2017-11-14 19:00] VITALS: BP_SYST 133
[2017-11-14] MEDS: ENOXAPARIN SODIUM 30 MG/0.3 ML SYRINGE SUBCUT SCH (23:45)
[2017-11-14] MEDS: INSULIN ASPART 100 UNITS/ML, 10 ML VIAL (NovoLOG) SUBCUT PRN (23:48)
[2017-11-15 00:53] VITALS: BP_SYST 132
[2017-11-15] MEDS: CLINDAMYCIN 600 mg/50mL D5W 50 ML IV SCH ×3 (05:45→17:58)
[2017-11-15] MEDS: INSULIN NPH/REGULAR 70-30, 100 UNITS/ML, 10 ML VIAL SUBCUT SCH ×2 (05:52→18:00)
[2017-11-15] MEDS: LEVOTHYROXINE SODIUM 0.025 MG TABLET PO SCH (05:56)
[2017-11-15 06:24] LABS: BASOPHILS % (AUTO) 0.7 % (0.0-2.0); EOSINOPHILS # (AUTO) 0.2 K/uL (0.0-0.4); EOSINOPHILS % (AUTO) 3.2 % (0.0-4.0); HEMATOCRIT 37.1 % (36-48); HEMOGLOBIN 12.3 g/dL (12.0-16.0); LYMPHOCYTES # (AUTO) 1.5 K/uL (1.0-5.5); LYMPHOCYTES % (AUTO) 26.6 % (20.5-51.5); MEAN CORPUSCULAR HEMOGLOBIN 31 pg (27-31); MEAN CORPUSCULAR HGB CONC 33 % (32-36); MEAN CORPUSCULAR VOLUME 92 fL (79.0-98.0); MONOCYTES # (AUTO) 0.6 K/uL (0.0-1.0); MONOCYTES % (AUTO) 10.1 % (1.7-9.3); NEUTROPHILS # (AUTO) 3.4 K/uL (1.8-7.7); NEUTROPHILS % (AUTO) 59.4 % (40.0-70.0); PLATELET COUNT (AUTO) 231 K/uL (130-430); RED BLOOD CELL COUNT(AUTO) 4.05 MIL/uL (4.2-6.2); RED CELL DISTRIBUTION WIDTH 15.7 % (9.0-15.0); WHITE BLOOD COUNT (AUTO) 5.7 K/uL (4.8-10.8)
[2017-11-15 06:38] LABS: ALANINE AMINOTRANSFERASE 22 U/L (12-78); ALBUMIN 2.5 g/dL (3.4-4.8); ANION GAP 2 (5-15); ASPARTATE AMINOTRANSFERASE 19 U/L (10-37); CALCIUM 9.5 mg/dL (8.4-11.0); CHLORIDE 102 mmol/L (98-107); CREATININE 1.74 mg/dL (0.55-1.30); GLUCOSE 91 mg/dL (70-99); POTASSIUM 4.3 mmol/L (3.5-5.1); SODIUM SERUM 136 mmol/L (136-145); TOTAL BILIRUBIN 0.5 mg/dL (0.0-1.0); UREA NITROGEN, BLOOD 37 mg/dL (8-21)
[2017-11-15 08:00] VITALS: BP_SYST 128
[2017-11-15] MEDS: CARVEDILOL 6.25 MG TABLET (COREG) PO SCH ×2 (09:00→09:26)
[2017-11-15] MEDS: OMEGA-3/DHA/EPA/FISH OIL 1 GM CAPSULE PO SCH (09:00)
[2017-11-15] MEDS: LEVOFLOXACIN 250 MG/D5W 50 ML IV SCH (09:25)
[2017-11-15] MEDS: CHOLECALCIFEROL (VITAMIN D3) 2,000 UNIT TABLET PO SCH (09:25)
[2017-11-15] MEDS: PENTOXIFYLLINE 400 MG TABLET.SA (TRENtal) PO SCH (09:25)
[2017-11-15] MEDS: LACTOBACILLUS RHAMNOSUS GG 1 CAP CAPSULE PO SCH (09:25)
[2017-11-15] MEDS: CLOPIDOGREL BISULFATE 75 MG TABLET PO SCH (09:25)
[2017-11-15] MEDS: FUROSEMIDE 20 MG TABLET PO SCH ×2 (09:26→20:13)
[2017-11-15 12:39] VITALS: BP_SYST 127
[2017-11-15] MEDS: INSULIN ASPART 100 UNITS/ML, 10 ML VIAL (NovoLOG) SUBCUT PRN ×3 (12:55→20:30)
[2017-11-15 16:01] VITALS: BP_SYST 136
[2017-11-15] MEDS ORDERED: CLIN300C11 PO (16:48)
[2017-11-15] MEDS ORDERED: L.RH1CAP PO (16:49)
[2017-11-15] MEDS: GABAPENTIN 100 MG CAPSULE PO SCH (18:04)
[2017-11-15] MEDS ORDERED: INSNLG7030 SUBCUT ×2 (18:29→18:30)
[2017-11-15] MEDS ORDERED: LEVO250T2 PO (18:33)
[2017-11-15 19:06] VITALS: BP_SYST 136
[2017-11-15 20:00] VITALS: BP_SYST 150
== END 2017-11-15 21:15 | disposition home or self-care (01) | DRG 603 ==
LOC: SMU 12:25
PROVIDERS: ADMIT Internal Medicine; ATTEND Internal Medicine
DX: L03.115 Cellulitis of right lower limb (principal); I13.0 Hypertensive heart and chronic kidney disease with heart failure and stage 1 through stage 4 chronic kidney disease, or unspecified chronic kidney disease; I50.42 Chronic combined systolic (congestive) and diastolic (congestive) heart failure; L97.819 Non-pressure chronic ulcer of other part of right lower leg with unspecified severity; E44.0 Moderate protein-calorie malnutrition; E11.21 Type 2 diabetes mellitus with diabetic nephropathy; E11.621 Type 2 diabetes mellitus with foot ulcer; E11.51 Type 2 diabetes mellitus with diabetic peripheral angiopathy without gangrene; I25.10 Atherosclerotic heart disease of native coronary artery without angina pectoris; N18.9 Chronic kidney disease, unspecified; E78.5 Hyperlipidemia, unspecified; E11.65 Type 2 diabetes mellitus with hyperglycemia; E03.9 Hypothyroidism, unspecified; E11.40 Type 2 diabetes mellitus with diabetic neuropathy, unspecified; D63.8 Anemia in other chronic diseases classified elsewhere; E11.649 Type 2 diabetes mellitus with hypoglycemia without coma; E11.622 Type 2 diabetes mellitus with other skin ulcer; Z95.1 Presence of aortocoronary bypass graft; Z95.828 Presence of other vascular implants and grafts; Z79.899 Other long term (current) drug therapy; Z79.4 Long term (current) use of insulin; Z88.0 Allergy status to penicillin; Z88.8 Allergy status to other drugs, medicaments and biological substances
CPT/HCPCS: 36415; 80048; 80053; 81000-TC; 82962; 83036; 83540-TC; 83550-TC; 83605; 84439; 84443-TC; 85025; 87040-TC; 93971; J1650; J1815; J1956; J3490

== ENCOUNTER 2018-02-17 23:44 | Inpatient (IN) | payer OTHER, MEDICAID ==
[~2018-02-17] VITALS: Ht 152.4 cm; Wt 69.2 kg
[~2018-02-17 23:44] MED LIST changes: +CLIN300C11 PO; -HUM10VIA3 SUBCUT; +INSNLG7030 SUBCUT; +L.RH1CAP PO; +LEVO250T2 PO; +TYC3 PO
[2018-02-18 00:36] VITALS: BP_SYST 158
[2018-02-18] MEDS ORDERED: [UNRECOGNIZED DRUG - OTHER] PO (01:30)
[2018-02-18] MEDS ORDERED: LOPE2CAP PO (01:30)
[2018-02-18] MEDS ORDERED: magnesium sulfate (01:30)
[2018-02-18] MEDS ORDERED: IBUP-1969 PO (01:30)
[2018-02-18] MEDS ORDERED: LEVO25TA2 PO (01:30)
[2018-02-18] MEDS ORDERED: IPRA4AER INH (01:30)
[2018-02-18] MEDS ORDERED: FUROSEMIDE 40 MG/4 ML VIAL IVP ONE ×2 (02:00→06:00)
[2018-02-18] MEDS ORDERED: BENZONATATE 100 MG CAPSULE (TESSALON) PO ONE (02:15)
[2018-02-18 02:24] LABS: BASOPHILS % (AUTO) 0.4 % (0.0-2.0); EOSINOPHILS # (AUTO) 0.1 K/uL (0.0-0.4); EOSINOPHILS % (AUTO) 1.9 % (0.0-4.0); HEMATOCRIT 39.3 % (36-48); HEMOGLOBIN 12.4 g/dL (12.0-16.0); LYMPHOCYTES # (AUTO) 1.1 K/uL (1.0-5.5); LYMPHOCYTES % (AUTO) 14.5 % (20.5-51.5); MEAN CORPUSCULAR HEMOGLOBIN 28 pg (27-31); MEAN CORPUSCULAR HGB CONC 32 % (32-36); MEAN CORPUSCULAR VOLUME 89 fL (79.0-98.0); MONOCYTES # (AUTO) 0.8 K/uL (0.0-1.0); MONOCYTES % (AUTO) 9.9 % (1.7-9.3); NEUTROPHILS # (AUTO) 5.8 K/uL (1.8-7.7); NEUTROPHILS % (AUTO) 73.3 % (40.0-70.0); PLATELET COUNT (AUTO) 244 K/uL (130-430); RED BLOOD CELL COUNT(AUTO) 4.41 MIL/uL (4.2-6.2); RED CELL DISTRIBUTION WIDTH 15.7 % (9.0-15.0); WHITE BLOOD COUNT (AUTO) 7.8 K/uL (4.8-10.8)
[2018-02-18] MEDS ORDERED: BENZONATATE 100 MG CAPSULE (TESSALON) ONE (02:32)
[2018-02-18 02:39] LABS: ANION GAP 12 (5-15); CALCIUM 8.6 mg/dL (8.4-11.0); CHLORIDE 99 mmol/L (98-107); GLUCOSE 195 mg/dL (70-99); POTASSIUM 4.1 mmol/L (3.5-5.1); SODIUM SERUM 135 mmol/L (136-145); UREA NITROGEN, BLOOD 52 mg/dL (8-21)
[2018-02-18 02:43] LABS: ALANINE AMINOTRANSFERASE 18 U/L (12-78); ALBUMIN 2.7 g/dL (3.4-4.8); ASPARTATE AMINOTRANSFERASE 23 U/L (10-37); LIPASE 117 U/L (73-393); TOTAL BILIRUBIN 0.6 mg/dL (0.0-1.0)
[2018-02-18 02:44] LABS: INR 1.2 (0.8-1.2); PROTHROMBIN TIME 11.9 SECS (9.5-12.5)
[2018-02-18 02:57] LABS: BILIRUBIN,URINE NEGATIVE (NEGATIVE); BLOOD, URINE 1+ (NEGATIVE); CLARITY/URINE CLEAR (CLEAR); COLOR,URINE YELLOW (YELLOW); GLUCOSE,URINE TRACE (NEGATIVE); KETONES,URINE NEGATIVE (NEGATIVE); LEUKOCYTE ESTERASE ,URINE 1+ (NEGATIVE); NITRITE, URINE POSITIVE (NEGATIVE); PROTEIN URINE 2+ (NEGATIVE); UROBILINOGEN,URINE 0.2 (0.2-1.0)
[2018-02-18 03:25] LABS: BACTERIA,URINE MODERATE /HPF (None Seen); MUCUS,URINE 1+ /LPF (None Seen); WBC,URINE 20-50 /HPF (0-3)
[2018-02-18] MEDS ORDERED: ASPIRIN 81 MG TAB.CHEW PO ONE (03:45)
[2018-02-18] MEDS ORDERED: cefTRIAXone 1 GM IVPB PREMIX 50 ML IV ONE (03:45)
[2018-02-18] MEDS ORDERED: FUROSEMIDE 20 MG/2 ML VIAL IVP ONE (04:00)
[2018-02-18] MEDS ORDERED: GENTAMICIN SULFATE 0.3% OPHT. 5 ML DROPS OP ONE (04:15)
[2018-02-18] MEDS ORDERED: NACL 0.9% 250 ML IV ONE (04:15)
[2018-02-18] MEDS ORDERED: ENOXAPARIN SODIUM 60 MG/0.6 ML SYRINGE ONE (04:32)
[2018-02-18] MEDS ORDERED: FUROSEMIDE 40 MG/4 ML VIAL ONE (04:33)
[2018-02-18] MEDS ORDERED: ENOXAPARIN SODIUM 60 MG/0.6 ML SYRINGE SUBCUT ONE (06:00)
[2018-02-18] MEDS: IPRATROPIUM/ALBUTEROL SULFATE 3 ML AMPUL.NEB (DUONEB) INH PRN ×2 (06:09→15:14)
[2018-02-18] MEDS: INSULIN REGULAR, HUMAN 100 UNITS/ML, 10 ML VIAL (novoLIN R) SUBCUT PRN ×3 (06:16→17:56)
[2018-02-18 06:17] VITALS: BP_SYST 166
[2018-02-18 08:00] VITALS: BP_SYST 163
[2018-02-18] MEDS ORDERED: traMADol HCL HCL 50 MG TABLET (ULTRAM) PO PRN (10:00)
[2018-02-18 11:19] LABS: BASOPHILS # (AUTO) 0.1 K/uL (0.0-0.2); BASOPHILS % (AUTO) 0.9 % (0.0-2.0); EOSINOPHILS # (AUTO) 0.2 K/uL (0.0-0.4); EOSINOPHILS % (AUTO) 2.3 % (0.0-4.0); HEMOGLOBIN 11.5 g/dL (12.0-16.0); LYMPHOCYTES # (AUTO) 1.2 K/uL (1.0-5.5); LYMPHOCYTES % (AUTO) 15.3 % (20.5-51.5); MEAN CORPUSCULAR HEMOGLOBIN 28 pg (27-31); MEAN CORPUSCULAR HGB CONC 32 % (32-36); MEAN CORPUSCULAR VOLUME 89 fL (79.0-98.0); MONOCYTES # (AUTO) 0.9 K/uL (0.0-1.0); MONOCYTES % (AUTO) 11.2 % (1.7-9.3); NEUTROPHILS # (AUTO) 5.5 K/uL (1.8-7.7); NEUTROPHILS % (AUTO) 70.3 % (40.0-70.0); PLATELET COUNT (AUTO) 249 K/uL (130-430); RED BLOOD CELL COUNT(AUTO) 4.05 MIL/uL (4.2-6.2); RED CELL DISTRIBUTION WIDTH 15.1 % (9.0-15.0); WHITE BLOOD COUNT (AUTO) 7.9 K/uL (4.8-10.8)
[2018-02-18] MEDS: cloNIDine HCL 0.1 MG TABLET PO PRN (11:24)
[2018-02-18 11:25] VITALS: BP_SYST 173
[2018-02-18] MEDS: LEVOFLOXACIN 250 MG/D5W 50 ML IV SCH (11:25)
[2018-02-18 11:32] LABS: ANION GAP 7 (5-15); CALCIUM 8.5 mg/dL (8.4-11.0); CHLORIDE 100 mmol/L (98-107); GLUCOSE 176 mg/dL (70-99); POTASSIUM 3.5 mmol/L (3.5-5.1); SODIUM SERUM 134 mmol/L (136-145); UREA NITROGEN, BLOOD 53 mg/dL (8-21)
[2018-02-18] MEDS ORDERED: LACTOBACILLUS RHAMNOSUS GG 1 CAP CAPSULE PO SCH (15:00)
[2018-02-18] MEDS: GABAPENTIN 100 MG CAPSULE PO SCH (17:52)
[2018-02-18] MEDS: NEOMYCIN/POLYMYXN B/GRAMICIDIN 10 ML OPHT. DROPS OP SCH ×2 (17:53→22:59)
[2018-02-18] MEDS: CLINDAMYCIN 600 MG in D5W 50 ML IV SCH ×2 (17:54→23:00)
[2018-02-18 20:00] VITALS: BP_SYST 142
[2018-02-18] MEDS: OMEGA-3/DHA/EPA/FISH OIL 1 GM CAPSULE PO SCH (22:56)
[2018-02-18] MEDS: guaiFENesin ER 600 MG TAB PO SCH (22:56)
[2018-02-18] MEDS: LACTOBACILLUS RHAMNOSUS GG 1 CAP CAPSULE PO SCH (22:56)
[2018-02-18] MEDS: PENTOXIFYLLINE 400 MG TABLET.SA (TRENtal) PO SCH (22:57)
[2018-02-18] MEDS: CARVEDILOL 6.25 MG TABLET (COREG) PO SCH (22:57)
[2018-02-18] MEDS: FUROSEMIDE 20 MG TABLET PO SCH (22:58)
[2018-02-18] MEDS: ERYTHROMYCIN BASE 0.5% EYE OINT...G. OP SCH (23:00)
[2018-02-18] MEDS: PROMETHAZINE 6.25 MG/ CODEINE 10 MG/ 5 ML PO PRN (23:11)
[2018-02-19] VITALS: BP_SYST 144
[2018-02-19] MEDS: IPRATROPIUM/ALBUTEROL SULFATE 3 ML AMPUL.NEB (DUONEB) INH PRN (03:09)
[2018-02-19] MEDS: CLINDAMYCIN 600 MG in D5W 50 ML IV SCH ×3 (06:54→17:35)
[2018-02-19] MEDS: LEVOTHYROXINE SODIUM 0.025 MG TABLET PO SCH (06:54)
[2018-02-19] MEDS: NEOMYCIN/POLYMYXN B/GRAMICIDIN 10 ML OPHT. DROPS OP SCH ×5 (06:56→21:16)
[2018-02-19 06:58] LABS: BASOPHILS % (AUTO) 0.7 % (0.0-2.0); EOSINOPHILS # (AUTO) 0.1 K/uL (0.0-0.4); HEMOGLOBIN 10.9 g/dL (12.0-16.0); LYMPHOCYTES # (AUTO) 1.1 K/uL (1.0-5.5); LYMPHOCYTES % (AUTO) 18.6 % (20.5-51.5); MEAN CORPUSCULAR HEMOGLOBIN 29 pg (27-31); MEAN CORPUSCULAR HGB CONC 33 % (32-36); MEAN CORPUSCULAR VOLUME 88 fL (79.0-98.0); MONOCYTES # (AUTO) 0.7 K/uL (0.0-1.0); MONOCYTES % (AUTO) 11.6 % (1.7-9.3); NEUTROPHILS # (AUTO) 4.2 K/uL (1.8-7.7); NEUTROPHILS % (AUTO) 67.1 % (40.0-70.0); PLATELET COUNT (AUTO) 212 K/uL (130-430); RED BLOOD CELL COUNT(AUTO) 3.75 MIL/uL (4.2-6.2); RED CELL DISTRIBUTION WIDTH 15.5 % (9.0-15.0); WHITE BLOOD COUNT (AUTO) 6.1 K/uL (4.8-10.8)
[2018-02-19 07:48] LABS: ALANINE AMINOTRANSFERASE 13 U/L (12-78); ALBUMIN 2.4 g/dL (3.4-4.8); ANION GAP 10 (5-15); ASPARTATE AMINOTRANSFERASE 20 U/L (10-37); CALCIUM 8.6 mg/dL (8.4-11.0); CHLORIDE 99 mmol/L (98-107); CREATININE 1.92 mg/dL (0.55-1.30); GLUCOSE 120 mg/dL (70-99); POTASSIUM 3.8 mmol/L (3.5-5.1); SODIUM SERUM 136 mmol/L (136-145); THYROID STIMULATING HORMONE 5.44 uIu/mL (0.34-4.82); TOTAL BILIRUBIN 0.6 mg/dL (0.0-1.0); UREA NITROGEN, BLOOD 51 mg/dL (8-21)
[2018-02-19 08:00] VITALS: BP_SYST 162
[2018-02-19] MEDS: PENTOXIFYLLINE 400 MG TABLET.SA (TRENtal) PO SCH ×2 (09:35→21:20)
[2018-02-19] MEDS: LACTOBACILLUS RHAMNOSUS GG 1 CAP CAPSULE PO SCH ×2 (09:35→21:21)
[2018-02-19] MEDS: guaiFENesin ER 600 MG TAB PO SCH ×2 (09:35→21:21)
[2018-02-19] MEDS: FENOFIBRATE NANOCRYSTALLIZED 48 MG TABLET (TRICOR) PO SCH (09:35)
[2018-02-19] MEDS: CLOPIDOGREL BISULFATE 75 MG TABLET PO SCH (09:35)
[2018-02-19] MEDS: OMEGA-3/DHA/EPA/FISH OIL 1 GM CAPSULE PO SCH ×2 (09:35→21:21)
[2018-02-19] MEDS: CHOLECALCIFEROL (VITAMIN D3) 2,000 UNIT TABLET PO SCH (09:35)
[2018-02-19] MEDS: CARVEDILOL 6.25 MG TABLET (COREG) PO SCH ×2 (09:36→21:21)
[2018-02-19] MEDS: ERYTHROMYCIN BASE 0.5% EYE OINT...G. OP SCH ×2 (09:37→21:19)
[2018-02-19] MEDS: FUROSEMIDE 20 MG TABLET PO SCH ×2 (09:37→21:20)
[2018-02-19] MEDS: LEVOFLOXACIN 250 MG/D5W 50 ML IV SCH (11:10)
[2018-02-19] MEDS: INSULIN REGULAR, HUMAN 100 UNITS/ML, 10 ML VIAL (novoLIN R) SUBCUT PRN ×2 (11:35→17:33)
[2018-02-19 12:00] VITALS: BP_SYST 140
[2018-02-19] MEDS: PROMETHAZINE 6.25 MG/ CODEINE 10 MG/ 5 ML PO PRN ×2 (15:16→21:45)
[2018-02-19 16:02] VITALS: BP_SYST 152
[2018-02-19] MEDS: GABAPENTIN 100 MG CAPSULE PO SCH (17:31)
[2018-02-19] MEDS: DOCUSATE SODIUM 250 MG CAPSULE PO PRN (17:35)
[2018-02-19 20:00] VITALS: BP_SYST 163
[2018-02-19 23:48] VITALS: BP_SYST 159
[2018-02-20] MEDS: CLINDAMYCIN 600 MG in D5W 50 ML IV SCH ×4 (00:29→17:00)
[2018-02-20] MEDS: ACETAMINOPHEN/CODEINE 300 MG-30 MG TABLET PO PRN ×2 (03:12→18:59)
[2018-02-20] MEDS: LEVOTHYROXINE SODIUM 0.025 MG TABLET PO SCH (06:48)
[2018-02-20] MEDS: NEOMYCIN/POLYMYXN B/GRAMICIDIN 10 ML OPHT. DROPS OP SCH ×5 (06:49→21:26)
[2018-02-20 07:09] LABS: BASOPHILS % (AUTO) 0.5 % (0.0-2.0); EOSINOPHILS # (AUTO) 0.1 K/uL (0.0-0.4); EOSINOPHILS % (AUTO) 2.4 % (0.0-4.0); HEMOGLOBIN 10.6 g/dL (12.0-16.0); LYMPHOCYTES % (AUTO) 19.3 % (20.5-51.5); MEAN CORPUSCULAR HEMOGLOBIN 29 pg (27-31); MEAN CORPUSCULAR HGB CONC 33 % (32-36); MEAN CORPUSCULAR VOLUME 89 fL (79.0-98.0); MONOCYTES # (AUTO) 0.6 K/uL (0.0-1.0); MONOCYTES % (AUTO) 11.1 % (1.7-9.3); NEUTROPHILS # (AUTO) 3.4 K/uL (1.8-7.7); NEUTROPHILS % (AUTO) 66.7 % (40.0-70.0); PLATELET COUNT (AUTO) 204 K/uL (130-430); RED BLOOD CELL COUNT(AUTO) 3.62 MIL/uL (4.2-6.2); RED CELL DISTRIBUTION WIDTH 15.8 % (9.0-15.0); WHITE BLOOD COUNT (AUTO) 5.1 K/uL (4.8-10.8)
[2018-02-20 07:40] LABS: ALANINE AMINOTRANSFERASE 13 U/L (12-78); ALBUMIN 2.3 g/dL (3.4-4.8); ANION GAP 11 (5-15); ASPARTATE AMINOTRANSFERASE 20 U/L (10-37); CALCIUM 8.6 mg/dL (8.4-11.0); CHLORIDE 96 mmol/L (98-107); CREATININE 1.88 mg/dL (0.55-1.30); GLUCOSE 132 mg/dL (70-99); POTASSIUM 3.9 mmol/L (3.5-5.1); SODIUM SERUM 134 mmol/L (136-145); TOTAL BILIRUBIN 0.6 mg/dL (0.0-1.0); UREA NITROGEN, BLOOD 46 mg/dL (8-21)
[2018-02-20 08:00] VITALS: BP_SYST 117
[2018-02-20] MEDS: CARVEDILOL 6.25 MG TABLET (COREG) PO SCH ×2 (09:00→21:25)
[2018-02-20] MEDS: OMEGA-3/DHA/EPA/FISH OIL 1 GM CAPSULE PO SCH ×2 (09:20→21:25)
[2018-02-20] MEDS: FENOFIBRATE NANOCRYSTALLIZED 48 MG TABLET (TRICOR) PO SCH (09:21)
[2018-02-20] MEDS: CHOLECALCIFEROL (VITAMIN D3) 2,000 UNIT TABLET PO SCH (09:21)
[2018-02-20] MEDS: LACTOBACILLUS RHAMNOSUS GG 1 CAP CAPSULE PO SCH ×2 (09:21→21:23)
[2018-02-20] MEDS: FUROSEMIDE 20 MG TABLET PO SCH ×2 (09:21→21:23)
[2018-02-20] MEDS: CLOPIDOGREL BISULFATE 75 MG TABLET PO SCH (09:21)
[2018-02-20] MEDS: guaiFENesin ER 600 MG TAB PO SCH ×2 (09:21→21:25)
[2018-02-20] MEDS: PENTOXIFYLLINE 400 MG TABLET.SA (TRENtal) PO SCH ×2 (09:22→21:25)
[2018-02-20] MEDS: ERYTHROMYCIN BASE 0.5% EYE OINT...G. OP SCH ×2 (09:22→21:26)
[2018-02-20] MEDS: DOCUSATE SODIUM 250 MG CAPSULE PO PRN (10:54)
[2018-02-20] MEDS: LEVOFLOXACIN 250 MG/D5W 50 ML IV SCH (10:55)
[2018-02-20] MEDS: INSULIN REGULAR, HUMAN 100 UNITS/ML, 10 ML VIAL (novoLIN R) SUBCUT PRN ×2 (11:32→17:01)
[2018-02-20 12:00] VITALS: BP_SYST 154
[2018-02-20] MEDS ORDERED: BALSAM PERU/CASTOR OIL 60 GM OINT...G. TP ONE (12:45)
[2018-02-20] MEDS: BALSAM PERU/CASTOR OIL 60 GM OINT...G. TP SCH (15:06)
[2018-02-20 16:00] VITALS: BP_SYST 150
[2018-02-20] MEDS: GABAPENTIN 100 MG CAPSULE PO SCH (16:59)
[2018-02-20] MEDS ORDERED: VANCOMYCIN HCL 1 GM/NS PREMIX 250 ML IV SCH (20:30)
[2018-02-20 21:00] VITALS: BP_SYST 137
[2018-02-20] MEDS: PROMETHAZINE 6.25 MG/ CODEINE 10 MG/ 5 ML PO PRN (21:23)
[2018-02-20] MEDS ORDERED: VANCOMYCIN HCL 1000 MG/VIAL IV ONE (22:08)
[2018-02-20] MEDS ORDERED: MEROPENEM 500 MG VIAL IV ONE (22:11)
[2018-02-20] MEDS: MEROPENEM 500 MG in NS 50 ML IV SCH (22:21)
[2018-02-20 23:13] VITALS: BP_SYST 153
[2018-02-21] MEDS: CLINDAMYCIN 600 MG in D5W 50 ML IV SCH ×3 (00:40→11:35)
[2018-02-21] MEDS: NEOMYCIN/POLYMYXN B/GRAMICIDIN 10 ML OPHT. DROPS OP SCH ×5 (06:31→21:56)
[2018-02-21] MEDS: LEVOTHYROXINE SODIUM 0.025 MG TABLET PO SCH (06:31)
[2018-02-21 07:06] LABS: BASOPHILS % (AUTO) 0.7 % (0.0-2.0); EOSINOPHILS # (AUTO) 0.1 K/uL (0.0-0.4); EOSINOPHILS % (AUTO) 3.2 % (0.0-4.0); HEMATOCRIT 35.3 % (36-48); HEMOGLOBIN 11.5 g/dL (12.0-16.0); MEAN CORPUSCULAR HEMOGLOBIN 29 pg (27-31); MEAN CORPUSCULAR HGB CONC 33 % (32-36); MEAN CORPUSCULAR VOLUME 89 fL (79.0-98.0); MONOCYTES # (AUTO) 0.5 K/uL (0.0-1.0); MONOCYTES % (AUTO) 11.5 % (1.7-9.3); NEUTROPHILS # (AUTO) 2.9 K/uL (1.8-7.7); NEUTROPHILS % (AUTO) 62.6 % (40.0-70.0); PLATELET COUNT (AUTO) 207 K/uL (130-430); RED BLOOD CELL COUNT(AUTO) 3.96 MIL/uL (4.2-6.2); RED CELL DISTRIBUTION WIDTH 15.6 % (9.0-15.0); WHITE BLOOD COUNT (AUTO) 4.5 K/uL (4.8-10.8)
[2018-02-21 07:41] LABS: ANION GAP 8 (5-15); C-REACTIVE PROTEIN QUANT 2.7 mg/dL (0-0.5); CALCIUM 8.9 mg/dL (8.4-11.0); CHLORIDE 98 mmol/L (98-107); CREATININE 2.06 mg/dL (0.55-1.30); GLUCOSE 87 mg/dL (70-99); POTASSIUM 4.8 mmol/L (3.5-5.1); SODIUM SERUM 136 mmol/L (136-145); UREA NITROGEN, BLOOD 45 mg/dL (8-21)
[2018-02-21 09:10] VITALS: BP_SYST 153
[2018-02-21] MEDS: BALSAM PERU/CASTOR OIL 60 GM OINT...G. TP SCH ×2 (09:29→21:45)
[2018-02-21] MEDS: CHOLECALCIFEROL (VITAMIN D3) 2,000 UNIT TABLET PO SCH (09:30)
[2018-02-21] MEDS: LACTOBACILLUS RHAMNOSUS GG 1 CAP CAPSULE PO SCH ×2 (09:30→21:44)
[2018-02-21] MEDS: guaiFENesin ER 600 MG TAB PO SCH ×2 (09:30→21:44)
[2018-02-21] MEDS: FENOFIBRATE NANOCRYSTALLIZED 48 MG TABLET (TRICOR) PO SCH (09:30)
[2018-02-21] MEDS: CLOPIDOGREL BISULFATE 75 MG TABLET PO SCH (09:30)
[2018-02-21] MEDS: ERYTHROMYCIN BASE 0.5% EYE OINT...G. OP SCH ×2 (09:31→21:44)
[2018-02-21] MEDS: OMEGA-3/DHA/EPA/FISH OIL 1 GM CAPSULE PO SCH ×2 (09:33→21:44)
[2018-02-21] MEDS: CARVEDILOL 6.25 MG TABLET (COREG) PO SCH ×2 (09:33→21:45)
[2018-02-21] MEDS: FUROSEMIDE 20 MG TABLET PO SCH (09:33)
[2018-02-21] MEDS: PENTOXIFYLLINE 400 MG TABLET.SA (TRENtal) PO SCH ×2 (09:34→21:45)
[2018-02-21] MEDS: MEROPENEM 500 MG in NS 50 ML IV SCH ×2 (09:40→21:56)
[2018-02-21] MEDS: DOCUSATE SODIUM 250 MG CAPSULE PO PRN ×2 (09:43→22:09)
[2018-02-21] MEDS: LEVOFLOXACIN 250 MG/D5W 50 ML IV SCH (10:49)
[2018-02-21] MEDS ORDERED: VANCOMYCIN HCL 1 GM/NS PREMIX 250 ML IV ONE (11:00)
[2018-02-21 11:11] VITALS: BP_SYST 127
[2018-02-21] MEDS: INSULIN REGULAR, HUMAN 100 UNITS/ML, 10 ML VIAL (novoLIN R) SUBCUT PRN ×2 (11:36→17:44)
[2018-02-21 11:38] LABS: ERYTHROCYTE SEDIMENTATION RATE 46 MM/HR (0-20)
[2018-02-21] MEDS: PROMETHAZINE 6.25 MG/ CODEINE 10 MG/ 5 ML PO PRN (14:57)
[2018-02-21 16:49] VITALS: BP_SYST 151
[2018-02-21] MEDS: GABAPENTIN 100 MG CAPSULE PO SCH (17:42)
[2018-02-21 20:00] VITALS: BP_SYST 151
[2018-02-22] MEDS: ACETAMINOPHEN/CODEINE 300 MG-30 MG TABLET PO PRN (00:51)
[2018-02-22 02:06] VITALS: BP_SYST 141
[2018-02-22] MEDS: LEVOTHYROXINE SODIUM 0.025 MG TABLET PO SCH (06:54)
[2018-02-22] MEDS: NEOMYCIN/POLYMYXN B/GRAMICIDIN 10 ML OPHT. DROPS OP SCH ×4 (06:55→17:29)
[2018-02-22 07:26] LABS: BASOPHILS % (AUTO) 0.8 % (0.0-2.0); EOSINOPHILS # (AUTO) 0.2 K/uL (0.0-0.4); HEMOGLOBIN 10.9 g/dL (12.0-16.0); LYMPHOCYTES # (AUTO) 0.9 K/uL (1.0-5.5); MEAN CORPUSCULAR HEMOGLOBIN 30 pg (27-31); MEAN CORPUSCULAR HGB CONC 33 % (32-36); MEAN CORPUSCULAR VOLUME 91 fL (79.0-98.0); MONOCYTES # (AUTO) 0.6 K/uL (0.0-1.0); MONOCYTES % (AUTO) 10.3 % (1.7-9.3); NEUTROPHILS # (AUTO) 3.9 K/uL (1.8-7.7); NEUTROPHILS % (AUTO) 68.9 % (40.0-70.0); PLATELET COUNT (AUTO) 211 K/uL (130-430); RED BLOOD CELL COUNT(AUTO) 3.62 MIL/uL (4.2-6.2); RED CELL DISTRIBUTION WIDTH 15.6 % (9.0-15.0); WHITE BLOOD COUNT (AUTO) 5.6 K/uL (4.8-10.8)
[2018-02-22 08:00] VITALS: BP_SYST 136
[2018-02-22 08:07] LABS: ALANINE AMINOTRANSFERASE 15 U/L (12-78); ALBUMIN 2.3 g/dL (3.4-4.8); ANION GAP 11 (5-15); ASPARTATE AMINOTRANSFERASE 20 U/L (10-37); CALCIUM 8.6 mg/dL (8.4-11.0); CHLORIDE 97 mmol/L (98-107); CREATININE 2.06 mg/dL (0.55-1.30); GLUCOSE 154 mg/dL (70-99); POTASSIUM 4.2 mmol/L (3.5-5.1); SODIUM SERUM 135 mmol/L (136-145); TOTAL BILIRUBIN 0.6 mg/dL (0.0-1.0); UREA NITROGEN, BLOOD 45 mg/dL (8-21); VANCOMYCIN,RANDOM 15.4 ug/mL
[2018-02-22] MEDS: FENOFIBRATE NANOCRYSTALLIZED 48 MG TABLET (TRICOR) PO SCH (08:34)
[2018-02-22] MEDS: CARVEDILOL 6.25 MG TABLET (COREG) PO SCH (08:35)
[2018-02-22] MEDS: LACTOBACILLUS RHAMNOSUS GG 1 CAP CAPSULE PO SCH (08:35)
[2018-02-22] MEDS: BALSAM PERU/CASTOR OIL 60 GM OINT...G. TP SCH (08:35)
[2018-02-22] MEDS: DOCUSATE SODIUM 250 MG CAPSULE PO PRN (08:35)
[2018-02-22] MEDS: OMEGA-3/DHA/EPA/FISH OIL 1 GM CAPSULE PO SCH (08:35)
[2018-02-22] MEDS: CHOLECALCIFEROL (VITAMIN D3) 2,000 UNIT TABLET PO SCH (08:36)
[2018-02-22] MEDS: PENTOXIFYLLINE 400 MG TABLET.SA (TRENtal) PO SCH (08:36)
[2018-02-22] MEDS: guaiFENesin ER 600 MG TAB PO SCH (08:36)
[2018-02-22] MEDS: CLOPIDOGREL BISULFATE 75 MG TABLET PO SCH (08:36)
[2018-02-22] MEDS: ERYTHROMYCIN BASE 0.5% EYE OINT...G. OP SCH (08:37)
[2018-02-22] MEDS: MEROPENEM 500 MG in NS 50 ML IV SCH (08:39)
[2018-02-22] MEDS ORDERED: FUROSEMIDE 20 MG TABLET PO SCH (09:00)
[2018-02-22] MEDS: INSULIN REGULAR, HUMAN 100 UNITS/ML, 10 ML VIAL (novoLIN R) SUBCUT PRN (11:45)
[2018-02-22] MEDS: cloNIDine HCL 0.1 MG TABLET PO PRN (11:48)
[2018-02-22] MEDS ORDERED: L.RH1CAP PO (12:33)
[2018-02-22] MEDS ORDERED: CLIN300C11 PO (12:33)
[2018-02-22 12:43] VITALS: BP_SYST 163
[2018-02-22] MEDS ORDERED: VANCOMYCIN HCL 1,000 MG in NS 250 ML IV SCH (13:00)
[2018-02-22 16:42] VITALS: BP_SYST 132
[2018-02-22] MEDS: GABAPENTIN 100 MG CAPSULE PO SCH (17:29)
[2018-02-23] MEDS ORDERED: LEVOTHYROXINE SODIUM 0.025 MG TABLET PO SCH (07:00)
== END 2018-02-22 18:41 | DRG 280 ==
LOC: SED 23:44 → STU 02-18 04:12 → SMU 02-21 20:45
PROVIDERS: ADMIT Internal Medicine; ATTEND Internal Medicine
DX: I21.A1 Myocardial infarction type 2 (principal); J18.9 Pneumonia, unspecified organism; I50.43 Acute on chronic combined systolic (congestive) and diastolic (congestive) heart failure; I13.0 Hypertensive heart and chronic kidney disease with heart failure and stage 1 through stage 4 chronic kidney disease, or unspecified chronic kidney disease; E11.52 Type 2 diabetes mellitus with diabetic peripheral angiopathy with gangrene; N39.0 Urinary tract infection, site not specified; J98.11 Atelectasis; M86.671 Other chronic osteomyelitis, right ankle and foot; N17.9 Acute kidney failure, unspecified; I96 Gangrene, not elsewhere classified; L97.419 Non-pressure chronic ulcer of right heel and midfoot with unspecified severity; J20.9 Acute bronchitis, unspecified; E11.69 Type 2 diabetes mellitus with other specified complication; E11.621 Type 2 diabetes mellitus with foot ulcer; B96.20 Unspecified Escherichia coli [E. coli] as the cause of diseases classified elsewhere; D63.8 Anemia in other chronic diseases classified elsewhere; E03.9 Hypothyroidism, unspecified; E11.21 Type 2 diabetes mellitus with diabetic nephropathy; E11.22 Type 2 diabetes mellitus with diabetic chronic kidney disease; E11.42 Type 2 diabetes mellitus with diabetic polyneuropathy; E11.649 Type 2 diabetes mellitus with hypoglycemia without coma; E78.00 Pure hypercholesterolemia, unspecified; E78.5 Hyperlipidemia, unspecified; H91.90 Unspecified hearing loss, unspecified ear; I08.1 Rheumatic disorders of both mitral and tricuspid valves; I25.10 Atherosclerotic heart disease of native coronary artery without angina pectoris; M19.90 Unspecified osteoarthritis, unspecified site; I25.5 Ischemic cardiomyopathy; E11.51 Type 2 diabetes mellitus with diabetic peripheral angiopathy without gangrene; H10.30 Unspecified acute conjunctivitis, unspecified eye; L03.031 Cellulitis of right toe; N18.3 Chronic kidney disease, stage 3 (moderate); Z79.4 Long term (current) use of insulin; Z79.890 Hormone replacement therapy; Z82.49 Family history of ischemic heart disease and other diseases of the circulatory system; Z83.3 Family history of diabetes mellitus; Z95.1 Presence of aortocoronary bypass graft; Z91.011 Allergy to milk products; Z88.0 Allergy status to penicillin; Z91.018 Allergy to other foods; Z79.899 Other long term (current) drug therapy; I25.2 Old myocardial infarction; Z90.49 Acquired absence of other specified parts of digestive tract
CPT/HCPCS: 36415; 71045; 71250-TC; 78315; 80048; 80053; 80202-TC; 81000-TC; 82962; 83036; 83605; 83690-TC; 83735-TC; 83880; 84443-TC; 84484; 85025; 85610-TC; 85651-TC; 85730-TC; 86140; 87040-TC; 87070-TC; 87086; 87186-TC; 93005; 93306; 94640; 94760; 96365; 96375; 99285; A9503; G0378; J0696; J1650; J1815; J1940; J1956; J2185; J3370; J3490; J7050; J7060; J7620

== ENCOUNTER 2018-05-22 17:06 | Inpatient (IN) | payer OTHER, MEDICAID ==
[~2018-05-22] VITALS: Ht 152.4 cm; Wt 60.5 kg
[2018-05-22 17:06] VITALS: BP_SYST 153
[~2018-05-22 17:06] MED LIST changes: +IBUP-1969 PO; +IPRA4AER INH; +LEVO25TA2 PO; +LOPE2CAP PO; +[UNRECOGNIZED DRUG - OTHER] PO; +magnesium sulfate
[2018-05-22 18:25] LABS: WHITE BLOOD COUNT (AUTO) 6.5 K/uL (4.8-10.8)
[2018-05-22 18:26] LABS: BASOPHILS # (AUTO) 0.1 K/uL (0.0-0.2); EOSINOPHILS # (AUTO) 0.2 K/uL (0.0-0.4); EOSINOPHILS % (AUTO) 3.1 % (0.0-4.0); HEMATOCRIT 35.8 % (36-48); HEMOGLOBIN 11.7 g/dL (12.0-16.0); LYMPHOCYTES % (AUTO) 15.2 % (20.5-51.5); MEAN CORPUSCULAR HEMOGLOBIN 29 pg (27-31); MEAN CORPUSCULAR HGB CONC 33 % (32-36); MEAN CORPUSCULAR VOLUME 88 fL (79.0-98.0); MONOCYTES # (AUTO) 0.5 K/uL (0.0-1.0); MONOCYTES % (AUTO) 7.7 % (1.7-9.3); NEUTROPHILS # (AUTO) 4.8 K/uL (1.8-7.7); PLATELET COUNT (AUTO) 176 K/uL (130-430); RED BLOOD CELL COUNT(AUTO) 4.08 MIL/uL (4.2-6.2)
[2018-05-22 18:36] LABS: ANION GAP 5 (5-15); CALCIUM 8.4 mg/dL (8.4-11.0); CHLORIDE 100 mmol/L (98-107); CREATININE 1.82 mg/dL (0.55-1.30); GLUCOSE 204 mg/dL (70-99); POTASSIUM 4.2 mmol/L (3.5-5.1); SODIUM SERUM 135 mmol/L (136-145); UREA NITROGEN, BLOOD 54 mg/dL (8-21)
[2018-05-22 18:39] LABS: INR 1.2 (0.8-1.2); PROTHROMBIN TIME 12.6 SECS (9.5-12.5)
[2018-05-22 18:42] LABS: ALANINE AMINOTRANSFERASE 20 U/L (12-78); ALBUMIN 2.8 g/dL (3.4-4.8); ASPARTATE AMINOTRANSFERASE 28 U/L (10-37); TOTAL BILIRUBIN 0.7 mg/dL (0.0-1.0)
[2018-05-22] MEDS ORDERED: FUROSEMIDE 100 MG/10 ML VIAL IVP ONE (19:00)
[2018-05-22] MEDS ORDERED: PHEDM120 PO (20:50)
[2018-05-22] MEDS ORDERED: DOXY100T2 PO (20:50)
[2018-05-22] MEDS ORDERED: CAT.1 PO (20:50)
[2018-05-22 21:20] VITALS: BP_SYST 141
[2018-05-22] MEDS ORDERED: DOCUSATE SODIUM 250 MG CAPSULE PO SCH (21:30)
[2018-05-22] MEDS ORDERED: NITROGLYCERIN 0.4 MG TAB.SUBL SL PRN (21:30)
[2018-05-22] MEDS ORDERED: ACETAMINOPHEN/CODEINE 300 MG-30 MG TABLET PO PRN (21:30)
[2018-05-22] MEDS ORDERED: traMADol HCL HCL 50 MG TABLET (ULTRAM) PO SCH (21:30)
[2018-05-22] MEDS ORDERED: INSULIN REGULAR, HUMAN 100 UNITS/ML, 10 ML VIAL (novoLIN R) SUBCUT PRN (21:45)
[2018-05-22] MEDS ORDERED: DEXTROSE 50% JECT 50 ML DISP.SYRIN IVP PRN (21:45)
[2018-05-22] MEDS ORDERED: ACETAMINOPHEN 325 MG TABLET PO PRN (21:45)
[2018-05-22] MEDS ORDERED: CARVEDILOL 6.25 MG TABLET (COREG) PO ONE (22:00)
[2018-05-22] MEDS ORDERED: cloNIDine HCL 0.1 MG TABLET PO SCH (22:00)
[2018-05-22] MEDS ORDERED: ENOXAPARIN SODIUM 30 MG/0.3 ML SYRINGE SUBCUT ONE (22:30)
[2018-05-22] MEDS ORDERED: LEVOFLOXACIN 250 MG/D5W 50 ML IV ONE (22:56)
[2018-05-22] MEDS: LEVOFLOXACIN 250 MG/D5W 50 ML IV SCH (23:00)
[2018-05-22] MEDS ORDERED: traMADol HCL HCL 50 MG TABLET (ULTRAM) PO PRN (23:15)
[2018-05-22] MEDS ORDERED: cloNIDine HCL 0.1 MG TABLET PO PRN (23:15)
[2018-05-22] MEDS ORDERED: DOCUSATE SODIUM 250 MG CAPSULE PO PRN (23:30)
[2018-05-23] VITALS (7 sets, daily range): BP systolic 114–158
[2018-05-23] MEDS: PROMETHAZINE-DM 6.25 MG-15 MG/5 ML UDC PO SCH ×3 (00:14→06:23)
[2018-05-23] MEDS ORDERED: PROMETHAZINE-DM 6.25 MG-15 MG/5 ML UDC ONE (00:17)
[2018-05-23 05:39] LABS: BILIRUBIN,URINE NEGATIVE (NEGATIVE); CLARITY/URINE CLEAR (CLEAR); COLOR,URINE YELLOW (YELLOW); GLUCOSE,URINE NEGATIVE (NEGATIVE); KETONES,URINE NEGATIVE (NEGATIVE); LEUKOCYTE ESTERASE ,URINE NEGATIVE (NEGATIVE); NITRITE, URINE NEGATIVE (NEGATIVE); PH,URINE 6.5 (5.0-8.0); PROTEIN URINE 2+ (NEGATIVE); UROBILINOGEN,URINE 0.2 (0.2-1.0)
[2018-05-23 05:40] LABS: BLOOD, URINE TRACE (NEGATIVE)
[2018-05-23 05:49] LABS: BACTERIA,URINE FEW /HPF (None Seen); HYALINE CASTS, URINE 0-10 /LPF (None Seen); WBC,URINE 0-3 /HPF (0-3)
[2018-05-23] MEDS ORDERED: LEVOTHYROXINE SODIUM 0.025 MG TABLET PO SCH (07:00)
[2018-05-23] MEDS ORDERED: PROMETHAZINE-DM 6.25 MG-15 MG/5 ML UDC PO PRN (07:00)
[2018-05-23 07:03] LABS: MEAN CORPUSCULAR VOLUME 88 fL (79.0-98.0); RED BLOOD CELL COUNT(AUTO) 3.88 MIL/uL (4.2-6.2); WHITE BLOOD COUNT (AUTO) 5.8 K/uL (4.8-10.8)
[2018-05-23 07:04] LABS: BASOPHILS % (AUTO) 0.9 % (0.0-2.0); EOSINOPHILS % (AUTO) 3.7 % (0.0-4.0); LYMPHOCYTES # (AUTO) 1.1 K/uL (1.0-5.5); LYMPHOCYTES % (AUTO) 18.5 % (20.5-51.5); MEAN CORPUSCULAR HEMOGLOBIN 28 pg (27-31); MEAN CORPUSCULAR HGB CONC 32 % (32-36); MONOCYTES # (AUTO) 0.5 K/uL (0.0-1.0); MONOCYTES % (AUTO) 8.4 % (1.7-9.3); NEUTROPHILS % (AUTO) 68.5 % (40.0-70.0); PLATELET COUNT (AUTO) 161 K/uL (130-430); RED CELL DISTRIBUTION WIDTH 16.8 % (9.0-15.0)
[2018-05-23 07:05] LABS: BASOPHILS # (AUTO) 0.1 K/uL (0.0-0.2); EOSINOPHILS # (AUTO) 0.2 K/uL (0.0-0.4)
[2018-05-23 08:01] LABS: CHLORIDE 103 mmol/L (98-107); POTASSIUM 3.5 mmol/L (3.5-5.1); SODIUM SERUM 138 mmol/L (136-145)
[2018-05-23 08:02] LABS: ANION GAP 6 (5-15); CALCIUM 8.2 mg/dL (8.4-11.0); CREATININE 1.67 mg/dL (0.55-1.30); GLUCOSE 111 mg/dL (70-99); UREA NITROGEN, BLOOD 50 mg/dL (8-21)
[2018-05-23 08:03] LABS: CHOLESTEROL 123 mg/dL (<200); HDL CHOLESTEROL 36 mg/dL (>55); LDL CHOLESTEROL 74 mg/dL (<100); THYROID STIMULATING HORMONE 6.56 uIu/mL (0.34-4.82); TRIGLYCERIDES 117 mg/dL (30-150); URIC ACID 8.7 mg/dL (2.4-7.0)
[2018-05-23] MEDS ORDERED: NON-FORMULARY MEDICATION (Lactobacillus Rhamnosus Gg (Probiotic) 1 EACH) PO SCH (09:00)
[2018-05-23] MEDS ORDERED: CARVEDILOL 6.25 MG TABLET (COREG) PO SCH (09:00)
[2018-05-23] MEDS ORDERED: FUROSEMIDE 20 MG TABLET PO SCH (09:00)
[2018-05-23] MEDS ORDERED: INSULIN NPH/REGULAR 70-30, 100 UNITS/ML, 10 ML VIAL SUBCUT SCH ×2 (09:00→18:00)
[2018-05-23] MEDS: CLOPIDOGREL BISULFATE 75 MG TABLET PO SCH (11:28)
[2018-05-23] MEDS: CHOLECALCIFEROL (VITAMIN D3) 2,000 UNIT TABLET PO SCH (11:28)
[2018-05-23] MEDS: DOXYCYCLINE HYCLATE 100 MG CAPSULE PO SCH ×2 (11:28→20:52)
[2018-05-23] MEDS: OMEGA-3/DHA/EPA/FISH OIL 1 GM CAPSULE PO SCH ×2 (11:28→20:52)
[2018-05-23] MEDS: LACTOBACILLUS RHAMNOSUS GG 1 CAP CAPSULE PO SCH ×2 (11:29→20:52)
[2018-05-23] MEDS: PENTOXIFYLLINE 400 MG TABLET.SA (TRENtal) PO SCH ×2 (11:33→20:52)
[2018-05-23] MEDS: FUROSEMIDE 20 MG/2 ML VIAL IVP SCH ×2 (11:54→20:53)
[2018-05-23] MEDS ORDERED: DEXTROSE 50% JECT 50 ML DISP.SYRIN IVP PRN (15:30)
[2018-05-23] MEDS ORDERED: ONDANSETRON HCL 4 MG/2 ML VIAL IVP PRN (17:15)
[2018-05-23] MEDS ORDERED: BALSAM PERU/CASTOR OIL 60 GM OINT...G. TP ONE (17:15)
[2018-05-23] MEDS ORDERED: PANTOPRAZOLE SODIUM 40 MG/VIAL (PROTONIX) IVP ONE (17:15)
[2018-05-23] MEDS ORDERED: ACYCLOVIR 400 MG TABLET PO ONE (17:30)
[2018-05-23] MEDS: GABAPENTIN 100 MG CAPSULE PO SCH (18:53)
[2018-05-23] MEDS: IPRATROPIUM/ALBUTEROL SULFATE 3 ML AMPUL.NEB (DUONEB) INH SCH (19:49)
[2018-05-23] MEDS: METOCLOPRAMIDE HCL 10 MG TABLET PO SCH (20:53)
[2018-05-23] MEDS: ENOXAPARIN SODIUM 30 MG/0.3 ML SYRINGE SUBCUT SCH (20:54)
[2018-05-23] MEDS: PANTOPRAZOLE SODIUM 40 MG/VIAL (PROTONIX) IVP SCH (20:56)
[2018-05-23] MEDS: BALSAM PERU/CASTOR OIL 60 GM OINT...G. TP SCH (21:10)
[2018-05-23] MEDS: INSULIN LISPRO SLIDING SCALE 100 UNITS/ML VIAL (humaLOG) SUBCUT PRN (21:18)
[2018-05-23] MEDS: ACYCLOVIR 400 MG TABLET PO SCH (22:59)
[2018-05-23] MEDS: LEVOFLOXACIN 250 MG/D5W 50 ML IV SCH (22:59)
[2018-05-24] MEDS: IPRATROPIUM/ALBUTEROL SULFATE 3 ML AMPUL.NEB (DUONEB) INH SCH ×4 (00:58→19:30)
[2018-05-24] MEDS: LEVOTHYROXINE SODIUM 0.025 MG TABLET PO SCH (06:48)
[2018-05-24] MEDS: ACYCLOVIR 400 MG TABLET PO SCH ×3 (06:48→20:49)
[2018-05-24] MEDS: METOCLOPRAMIDE HCL 10 MG TABLET PO SCH ×4 (06:48→20:49)
[2018-05-24 06:52] LABS: ANION GAP 7 (5-15); CALCIUM 8.5 mg/dL (8.4-11.0); CHLORIDE 100 mmol/L (98-107); CREATININE 1.65 mg/dL (0.55-1.30); GLUCOSE 102 mg/dL (70-99); SODIUM SERUM 135 mmol/L (136-145); UREA NITROGEN, BLOOD 47 mg/dL (8-21)
[2018-05-24 06:55] LABS: BASOPHILS % (AUTO) 0.7 % (0.0-2.0); EOSINOPHILS # (AUTO) 0.2 K/uL (0.0-0.4); EOSINOPHILS % (AUTO) 4.3 % (0.0-4.0); HEMATOCRIT 35.1 % (36-48); HEMOGLOBIN 11.4 g/dL (12.0-16.0); LYMPHOCYTES % (AUTO) 18.8 % (20.5-51.5); MEAN CORPUSCULAR HEMOGLOBIN 29 pg (27-31); MEAN CORPUSCULAR HGB CONC 33 % (32-36); MEAN CORPUSCULAR VOLUME 87 fL (79.0-98.0); MONOCYTES # (AUTO) 0.5 K/uL (0.0-1.0); MONOCYTES % (AUTO) 9.1 % (1.7-9.3); NEUTROPHILS # (AUTO) 3.7 K/uL (1.8-7.7); NEUTROPHILS % (AUTO) 67.1 % (40.0-70.0); PLATELET COUNT (AUTO) 180 K/uL (130-430); RED BLOOD CELL COUNT(AUTO) 4.02 MIL/uL (4.2-6.2); RED CELL DISTRIBUTION WIDTH 17.1 % (9.0-15.0); WHITE BLOOD COUNT (AUTO) 5.4 K/uL (4.8-10.8)
[2018-05-24] MEDS ORDERED: INSULIN GLARGINE 100 UNITS/ML 10 ML VIAL SUBCUT SCH (07:00)
[2018-05-24] MEDS: DOXYCYCLINE HYCLATE 100 MG CAPSULE PO SCH ×2 (10:29→20:49)
[2018-05-24] MEDS: LACTOBACILLUS RHAMNOSUS GG 1 CAP CAPSULE PO SCH ×2 (10:29→20:49)
[2018-05-24] MEDS: FUROSEMIDE 20 MG/2 ML VIAL IVP SCH ×2 (10:29→20:48)
[2018-05-24] MEDS: PANTOPRAZOLE SODIUM 40 MG/VIAL (PROTONIX) IVP SCH ×2 (10:29→20:48)
[2018-05-24] MEDS: OMEGA-3/DHA/EPA/FISH OIL 1 GM CAPSULE PO SCH ×2 (10:29→20:49)
[2018-05-24] MEDS: FENOFIBRATE 160 MG TABLET PO SCH (10:30)
[2018-05-24] MEDS: CLOPIDOGREL BISULFATE 75 MG TABLET PO SCH (10:30)
[2018-05-24] MEDS: CHOLECALCIFEROL (VITAMIN D3) 2,000 UNIT TABLET PO SCH (10:30)
[2018-05-24] MEDS: PENTOXIFYLLINE 400 MG TABLET.SA (TRENtal) PO SCH ×2 (10:53→20:49)
[2018-05-24 11:26] VITALS: BP_SYST 119
[2018-05-24 11:34] LABS: ALBUMIN 2.6 g/dL (3.4-4.8); BILIRUBIN,DIRECT 0.4 mg/dL (0.0-0.3); TOTAL BILIRUBIN 0.7 mg/dL (0.0-1.0)
[2018-05-24] MEDS: INSULIN LISPRO SLIDING SCALE 100 UNITS/ML VIAL (humaLOG) SUBCUT PRN (12:43)
[2018-05-24 15:44] VITALS: BP_SYST 146
[2018-05-24] MEDS: GABAPENTIN 100 MG CAPSULE PO SCH (16:51)
[2018-05-24] MEDS: BALSAM PERU/CASTOR OIL 60 GM OINT...G. TP SCH ×2 (16:52→20:53)
[2018-05-24 20:00] VITALS: BP_SYST 116
[2018-05-24] MEDS: ENOXAPARIN SODIUM 30 MG/0.3 ML SYRINGE SUBCUT SCH (20:50)
[2018-05-24] MEDS: LEVOFLOXACIN 250 MG/D5W 50 ML IV SCH (20:58)
[2018-05-25 00:29] VITALS: BP_SYST 115
[2018-05-25] MEDS: IPRATROPIUM/ALBUTEROL SULFATE 3 ML AMPUL.NEB (DUONEB) INH SCH ×4 (01:00→19:53)
[2018-05-25] MEDS: METOCLOPRAMIDE HCL 10 MG TABLET PO SCH ×4 (06:03→20:38)
[2018-05-25] MEDS: LEVOTHYROXINE SODIUM 0.025 MG TABLET PO SCH (06:03)
[2018-05-25] MEDS: ACYCLOVIR 400 MG TABLET PO SCH ×3 (06:03→21:10)
[2018-05-25] MEDS: INSULIN GLARGINE 100 UNITS/ML 10 ML VIAL SUBCUT SCH (06:10)
[2018-05-25 08:00] VITALS: BP_SYST 106
[2018-05-25] MEDS: PANTOPRAZOLE SODIUM 40 MG/VIAL (PROTONIX) IVP SCH ×2 (08:37→20:37)
[2018-05-25] MEDS: FUROSEMIDE 20 MG/2 ML VIAL IVP SCH ×2 (08:37→20:38)
[2018-05-25] MEDS: PENTOXIFYLLINE 400 MG TABLET.SA (TRENtal) PO SCH ×2 (08:37→20:39)
[2018-05-25] MEDS: OMEGA-3/DHA/EPA/FISH OIL 1 GM CAPSULE PO SCH ×2 (08:38→20:39)
[2018-05-25] MEDS: CHOLECALCIFEROL (VITAMIN D3) 2,000 UNIT TABLET PO SCH (08:38)
[2018-05-25] MEDS: CLOPIDOGREL BISULFATE 75 MG TABLET PO SCH (08:38)
[2018-05-25] MEDS: LACTOBACILLUS RHAMNOSUS GG 1 CAP CAPSULE PO SCH ×2 (08:38→20:39)
[2018-05-25] MEDS: DOXYCYCLINE HYCLATE 100 MG CAPSULE PO SCH ×2 (08:38→20:39)
[2018-05-25] MEDS: FENOFIBRATE 160 MG TABLET PO SCH (08:38)
[2018-05-25] MEDS: BALSAM PERU/CASTOR OIL 60 GM OINT...G. TP SCH ×2 (08:39→20:40)
[2018-05-25] MEDS: INSULIN LISPRO SLIDING SCALE 100 UNITS/ML VIAL (humaLOG) SUBCUT PRN (11:30)
[2018-05-25 11:46] VITALS: BP_SYST 132
[2018-05-25 15:16] VITALS: BP_SYST 123
[2018-05-25] MEDS: GABAPENTIN 100 MG CAPSULE PO SCH (16:45)
[2018-05-25 17:42] LABS: BF APPEARANCE UNSPUN SLIGHTLY CLOUDY (CLEAR); BODY FLUID COLOR DARK YELLOW (LT YELLOW); BODY FLUID SOURCE/ TYPE THORACENTESIS; BODY FLUID TOTAL VOLUME 550 mL; LYMPHOCYTES, BODY FLUID 39 %; MONOCYTES,BODY FLUID 51 %; NEUTROPHIL, BODY FLUID 10 %; SOURCE/TYPE ,BODY FLUID PLEURAL
[2018-05-25 17:47] LABS: WBC, BODY FLUID 340 /uL
[2018-05-25 17:53] LABS: RBC, BODY FLUID 3822 /uL
[2018-05-25 18:06] LABS: APPEARANCE,SPUN,BODY FLUID CLEAR (CLEAR)
[2018-05-25 20:00] VITALS: BP_SYST 129
[2018-05-25] MEDS: LEVOFLOXACIN 250 MG/D5W 50 ML IV SCH (21:10)
[2018-05-26] VITALS (7 sets, daily range): BP systolic 120–151
[2018-05-26] MEDS: IPRATROPIUM/ALBUTEROL SULFATE 3 ML AMPUL.NEB (DUONEB) INH SCH ×3 (01:30→13:43)
[2018-05-26 01:46] LABS: BODY FLUID GLUCOSE 171 mg/dL
[2018-05-26] MEDS: LEVOTHYROXINE SODIUM 0.025 MG TABLET PO SCH (06:12)
[2018-05-26] MEDS: METOCLOPRAMIDE HCL 10 MG TABLET PO SCH ×3 (06:12→17:10)
[2018-05-26] MEDS: ACYCLOVIR 400 MG TABLET PO SCH ×2 (06:12→14:37)
[2018-05-26] MEDS: INSULIN GLARGINE 100 UNITS/ML 10 ML VIAL SUBCUT SCH (06:16)
[2018-05-26 07:24] LABS: ANION GAP 4 (5-15); CHLORIDE 99 mmol/L (98-107); CREATININE 2.14 mg/dL (0.55-1.30); GLUCOSE 66 mg/dL (70-99); POTASSIUM 4.1 mmol/L (3.5-5.1); SODIUM SERUM 135 mmol/L (136-145); UREA NITROGEN, BLOOD 51 mg/dL (8-21)
[2018-05-26 07:32] LABS: HEMATOCRIT 37.9 % (36-48); HEMOGLOBIN 12.5 g/dL (12.0-16.0); MEAN CORPUSCULAR HEMOGLOBIN 29 pg (27-31); MEAN CORPUSCULAR HGB CONC 33 % (32-36); MEAN CORPUSCULAR VOLUME 88 fL (79.0-98.0); PLATELET COUNT (AUTO) 210 K/uL (130-430); RED BLOOD CELL COUNT(AUTO) 4.34 MIL/uL (4.2-6.2); RED CELL DISTRIBUTION WIDTH 16.9 % (9.0-15.0)
[2018-05-26 07:33] LABS: BASOPHILS # (AUTO) 0.1 K/uL (0.0-0.2); BASOPHILS % (AUTO) 0.9 % (0.0-2.0); EOSINOPHILS # (AUTO) 0.3 K/uL (0.0-0.4); EOSINOPHILS % (AUTO) 4.2 % (0.0-4.0); LYMPHOCYTES # (AUTO) 1.4 K/uL (1.0-5.5); LYMPHOCYTES % (AUTO) 19.6 % (20.5-51.5); MONOCYTES # (AUTO) 0.6 K/uL (0.0-1.0); MONOCYTES % (AUTO) 8.3 % (1.7-9.3); NEUTROPHILS # (AUTO) 4.7 K/uL (1.8-7.7)
[2018-05-26] MEDS: OMEGA-3/DHA/EPA/FISH OIL 1 GM CAPSULE PO SCH (08:46)
[2018-05-26] MEDS: CHOLECALCIFEROL (VITAMIN D3) 2,000 UNIT TABLET PO SCH (08:47)
[2018-05-26] MEDS: DOXYCYCLINE HYCLATE 100 MG CAPSULE PO SCH (08:47)
[2018-05-26] MEDS: PANTOPRAZOLE SODIUM 40 MG/VIAL (PROTONIX) IVP SCH (08:47)
[2018-05-26] MEDS: FENOFIBRATE 160 MG TABLET PO SCH (08:47)
[2018-05-26] MEDS: LACTOBACILLUS RHAMNOSUS GG 1 CAP CAPSULE PO SCH (08:47)
[2018-05-26] MEDS: PENTOXIFYLLINE 400 MG TABLET.SA (TRENtal) PO SCH (08:47)
[2018-05-26] MEDS: CLOPIDOGREL BISULFATE 75 MG TABLET PO SCH (08:47)
[2018-05-26] MEDS: BALSAM PERU/CASTOR OIL 60 GM OINT...G. TP SCH (08:48)
[2018-05-26] MEDS: FUROSEMIDE 20 MG/2 ML VIAL IVP SCH (08:48)
[2018-05-26] MEDS: INSULIN LISPRO SLIDING SCALE 100 UNITS/ML VIAL (humaLOG) SUBCUT PRN ×2 (11:22→17:13)
[2018-05-26] MEDS ORDERED: LEVO750T45 PO (13:29)
[2018-05-26] MEDS ORDERED: ACYC400T PO (13:30)
[2018-05-26] MEDS ORDERED: L.RH1CAP PO (13:30)
[2018-05-26] MEDS ORDERED: INSU100I20 SQ (16:28)
[2018-05-26] MEDS: GABAPENTIN 100 MG CAPSULE PO SCH (17:10)
== END 2018-05-26 19:39 | disposition home health service (06) | DRG 280 ==
LOC: SED 17:06 → STU 20:56
PROVIDERS: ADMIT Internal Medicine; ATTEND Internal Medicine
PROC: 0W993ZZ Drainage of Right Pleural Cavity, Percutaneous Approach (ICD-10-PCS; principal; 2018-05-25)
DX: I13.0 Hypertensive heart and chronic kidney disease with heart failure and stage 1 through stage 4 chronic kidney disease, or unspecified chronic kidney disease (principal); I21.A1 Myocardial infarction type 2; I50.43 Acute on chronic combined systolic (congestive) and diastolic (congestive) heart failure; J18.1 Lobar pneumonia, unspecified organism; E44.0 Moderate protein-calorie malnutrition; J20.9 Acute bronchitis, unspecified; L03.031 Cellulitis of right toe; N18.9 Chronic kidney disease, unspecified; E03.9 Hypothyroidism, unspecified; E11.21 Type 2 diabetes mellitus with diabetic nephropathy; E11.22 Type 2 diabetes mellitus with diabetic chronic kidney disease; E11.42 Type 2 diabetes mellitus with diabetic polyneuropathy; E11.51 Type 2 diabetes mellitus with diabetic peripheral angiopathy without gangrene; E11.649 Type 2 diabetes mellitus with hypoglycemia without coma; E78.5 Hyperlipidemia, unspecified; I25.10 Atherosclerotic heart disease of native coronary artery without angina pectoris; K21.9 Gastro-esophageal reflux disease without esophagitis; D63.8 Anemia in other chronic diseases classified elsewhere; I27.20 Pulmonary hypertension, unspecified; E78.00 Pure hypercholesterolemia, unspecified; M19.90 Unspecified osteoarthritis, unspecified site; I25.5 Ischemic cardiomyopathy; Z53.29 Procedure and treatment not carried out because of patient's decision for other reasons; Z79.4 Long term (current) use of insulin; Z79.890 Hormone replacement therapy; Z82.49 Family history of ischemic heart disease and other diseases of the circulatory system; Z83.3 Family history of diabetes mellitus; Z87.891 Personal history of nicotine dependence; Z95.1 Presence of aortocoronary bypass graft; Z95.828 Presence of other vascular implants and grafts; Z91.011 Allergy to milk products; Z88.0 Allergy status to penicillin; Z91.018 Allergy to other foods; Z79.899 Other long term (current) drug therapy; I25.2 Old myocardial infarction; Z98.49 Cataract extraction status, unspecified eye; Z68.26 Body mass index [BMI] 26.0-26.9, adult
CPT/HCPCS: 32555; 36415; 71045; 71046-TC; 71250-TC; 74018; 78580-TC; 80048; 80053; 80061; 80076; 81000-TC; 82947-TC; 82962; 83036; 83615-TC; 83880; 84157-TC; 84443-TC; 84484; 84550-TC; 85025; 85379; 85610-TC; 85730-TC; 87070-TC; 87086; 88108; 88305; 89051-TC; 89060-TC; 93005; 93306; 93970; 94640; 94760; 96374; 97110-GP; 97116-GP; 97530-GP; 99285; A9540; C9113; G0378; J1650; J1815; J1940; J1956; J7620; J8597

== ENCOUNTER 2018-06-13 16:00 | Inpatient (IN) | payer OTHER, MEDICAID ==
[~2018-06-13] VITALS: Ht 152.4 cm; Wt 65.8 kg
[~2018-06-13 16:00] MED LIST changes: +ACYC400T PO; -CARV6.2554 PO; +CAT.1 PO; -CLIN300C11 PO; +DOXY100T2 PO; -INSNLG7030 SUBCUT; +INSU100I20 SQ; -LEVO250T2 PO; +LEVO750T45 PO; +PHEDM120 PO; -[UNRECOGNIZED DRUG - OTHER] PO; -magnesium sulfate
[2018-06-13 16:30] VITALS: BP_SYST 154
[2018-06-13] MEDS ORDERED: GABA-529 PO (16:53)
[2018-06-13] MEDS ORDERED: CARV6.2554 PO (16:53)
[2018-06-13 17:15] LABS: BILIRUBIN,URINE NEGATIVE (NEGATIVE); CLARITY/URINE CLEAR (CLEAR); COLOR,URINE YELLOW (YELLOW); GLUCOSE,URINE TRACE (NEGATIVE); KETONES,URINE NEGATIVE (NEGATIVE); LEUKOCYTE ESTERASE ,URINE NEGATIVE (NEGATIVE); NITRITE, URINE NEGATIVE (NEGATIVE); PROTEIN URINE 2+ (NEGATIVE); UROBILINOGEN,URINE 0.2 (0.2-1.0)
[2018-06-13 17:30] LABS: BLOOD, URINE TRACE (NEGATIVE)
[2018-06-13 17:32] LABS: RBC,URINE 0-3 /HPF (0-3)
[2018-06-13 17:33] LABS: BACTERIA,URINE FEW /HPF (None Seen); MUCUS,URINE None Seen /LPF (None Seen)
[2018-06-13 17:40] LABS: ANION GAP 6 (5-15); CALCIUM 8.9 mg/dL (8.4-11.0); CHLORIDE 102 mmol/L (98-107); CREATININE 2.29 mg/dL (0.55-1.30); GLUCOSE 231 mg/dL (70-99); POTASSIUM 4.3 mmol/L (3.5-5.1); SODIUM SERUM 138 mmol/L (136-145); UREA NITROGEN, BLOOD 64 mg/dL (8-21)
[2018-06-13 17:48] LABS: ALANINE AMINOTRANSFERASE 15 U/L (12-78); ALBUMIN 2.7 g/dL (3.4-4.8); ASPARTATE AMINOTRANSFERASE 20 U/L (10-37); TOTAL BILIRUBIN 0.6 mg/dL (0.0-1.0)
[2018-06-13 17:51] LABS: HEMATOCRIT 35.8 % (36-48); HEMOGLOBIN 11.6 g/dL (12.0-16.0); MEAN CORPUSCULAR HEMOGLOBIN 29 pg (27-31); MEAN CORPUSCULAR VOLUME 89 fL (79.0-98.0); RED BLOOD CELL COUNT(AUTO) 4.01 MIL/uL (4.2-6.2); WHITE BLOOD COUNT (AUTO) 6.1 K/uL (4.8-10.8)
[2018-06-13 17:52] LABS: BASOPHILS % (AUTO) 0.4 % (0.0-2.0); EOSINOPHILS % (AUTO) 2.8 % (0.0-4.0); LYMPHOCYTES % (AUTO) 14.4 % (20.5-51.5); MEAN CORPUSCULAR HGB CONC 32 % (32-36); MONOCYTES % (AUTO) 8.8 % (1.7-9.3); NEUTROPHILS % (AUTO) 73.6 % (40.0-70.0); PLATELET COUNT (AUTO) 194 K/uL (130-430); RED CELL DISTRIBUTION WIDTH 18.8 % (9.0-15.0)
[2018-06-13 17:53] LABS: EOSINOPHILS # (AUTO) 0.2 K/uL (0.0-0.4); LYMPHOCYTES # (AUTO) 0.9 K/uL (1.0-5.5); MONOCYTES # (AUTO) 0.5 K/uL (0.0-1.0); NEUTROPHILS # (AUTO) 4.5 K/uL (1.8-7.7)
[2018-06-13] MEDS ORDERED: hydrALAZINE HCL 20 MG/ML VIAL IVP ONE (18:45)
[2018-06-13 19:10] VITALS: BP_SYST 145
[2018-06-13] MEDS ORDERED: FUROSEMIDE 40 MG/4 ML VIAL IVP ONE (19:15)
[2018-06-13] MEDS ORDERED: traMADol HCL HCL 50 MG TABLET (ULTRAM) PO SCH (19:15)
[2018-06-13] MEDS ORDERED: DOCUSATE SODIUM 250 MG CAPSULE PO SCH (19:15)
[2018-06-13] MEDS ORDERED: ACETAMINOPHEN/CODEINE 300 MG-30 MG TABLET PO PRN (19:15)
[2018-06-13] MEDS ORDERED: DEXTROSE 50% JECT 50 ML DISP.SYRIN IVP PRN (19:30)
[2018-06-13] MEDS ORDERED: ACETAMINOPHEN 325 MG TABLET PO PRN (19:30)
[2018-06-13] MEDS: LEVOFLOXACIN 250 MG/D5W 50 ML IV SCH (19:30)
[2018-06-13] MEDS ORDERED: CLINDAMYCIN 600 mg/50mL D5W 50 ML IV ONE (19:30)
[2018-06-13] MEDS ORDERED: cloNIDine HCL 0.1 MG TABLET PO SCH (20:00)
[2018-06-13] MEDS ORDERED: cloNIDine HCL 0.1 MG TABLET PO PRN (20:30)
[2018-06-13] MEDS: DOCUSATE SODIUM 100 MG CAPSULE PO SCH (20:32)
[2018-06-13] MEDS: LACTOBACILLUS RHAMNOSUS GG 1 CAP CAPSULE PO SCH (20:32)
[2018-06-13] MEDS: PENTOXIFYLLINE 400 MG TABLET.SA (TRENtal) PO SCH (20:32)
[2018-06-13] MEDS: DOXYCYCLINE HYCLATE 100 MG CAPSULE PO SCH (20:32)
[2018-06-13] MEDS: CARVEDILOL 6.25 MG TABLET (COREG) PO SCH (20:33)
[2018-06-13] MEDS: INSULIN REGULAR, HUMAN 100 UNITS/ML, 10 ML VIAL (novoLIN R) SUBCUT PRN (20:38)
[2018-06-13] MEDS: ENOXAPARIN SODIUM 30 MG/0.3 ML SYRINGE SUBCUT SCH (20:38)
[2018-06-13] MEDS ORDERED: FUROSEMIDE 20 MG TABLET PO SCH (21:00)
[2018-06-13] MEDS: PROMETHAZINE-DM 6.25 MG-15 MG/5 ML UDC PO SCH (23:00)
[2018-06-14 00:12] VITALS: BP_SYST 110
[2018-06-14] MEDS: CLINDAMYCIN 600 mg/50mL D5W 50 ML IV SCH ×4 (00:18→17:04)
[2018-06-14] MEDS: PROMETHAZINE-DM 6.25 MG-15 MG/5 ML UDC PO SCH ×7 (02:59→23:09)
[2018-06-14] MEDS: LEVOTHYROXINE SODIUM 0.025 MG TABLET PO SCH (06:12)
[2018-06-14] MEDS: INSULIN REGULAR, HUMAN 100 UNITS/ML, 10 ML VIAL (novoLIN R) SUBCUT PRN ×3 (06:13→21:48)
[2018-06-14 07:47] VITALS: BP_SYST 116
[2018-06-14 08:25] LABS: ANION GAP 4 (5-15); CALCIUM 8.8 mg/dL (8.4-11.0); CHLORIDE 98 mmol/L (98-107); CHOLESTEROL 115 mg/dL (<200); CREATININE 1.98 mg/dL (0.55-1.30); GLUCOSE 122 mg/dL (70-99); HDL CHOLESTEROL 35 mg/dL (>55); LDL CHOLESTEROL 76 mg/dL (<100); PHOSPHORUS 4.3 mg/dL (2.7-4.5); POTASSIUM 3.8 mmol/L (3.5-5.1); SODIUM SERUM 133 mmol/L (136-145); TRIGLYCERIDES 63 mg/dL (30-150); UREA NITROGEN, BLOOD 60 mg/dL (8-21)
[2018-06-14] MEDS: FUROSEMIDE 20 MG/2 ML VIAL IVP SCH ×2 (09:26→20:31)
[2018-06-14] MEDS: CHOLECALCIFEROL (VITAMIN D3) 2,000 UNIT TABLET PO SCH (09:28)
[2018-06-14] MEDS: CLOPIDOGREL BISULFATE 75 MG TABLET PO SCH (09:28)
[2018-06-14] MEDS: CARVEDILOL 6.25 MG TABLET (COREG) PO SCH ×2 (09:29→21:53)
[2018-06-14] MEDS: DOXYCYCLINE HYCLATE 100 MG CAPSULE PO SCH (09:30)
[2018-06-14] MEDS: PENTOXIFYLLINE 400 MG TABLET.SA (TRENtal) PO SCH ×2 (09:30→20:29)
[2018-06-14] MEDS: DOCUSATE SODIUM 100 MG CAPSULE PO SCH ×2 (09:30→20:29)
[2018-06-14] MEDS: LACTOBACILLUS RHAMNOSUS GG 1 CAP CAPSULE PO SCH ×2 (09:30→20:30)
[2018-06-14 11:25] VITALS: BP_SYST 110
[2018-06-14 11:37] LABS: HEMOGLOBIN 11.1 g/dL (12.0-16.0); RED BLOOD CELL COUNT(AUTO) 3.86 MIL/uL (4.2-6.2); WHITE BLOOD COUNT (AUTO) 4.8 K/uL (4.8-10.8)
[2018-06-14 11:38] LABS: BASOPHILS % (AUTO) 0.6 % (0.0-2.0); EOSINOPHILS # (AUTO) 0.2 K/uL (0.0-0.4); EOSINOPHILS % (AUTO) 3.2 % (0.0-4.0); HEMATOCRIT 34.4 % (36-48); LYMPHOCYTES # (AUTO) 0.8 K/uL (1.0-5.5); LYMPHOCYTES % (AUTO) 16.2 % (20.5-51.5); MEAN CORPUSCULAR HEMOGLOBIN 29 pg (27-31); MEAN CORPUSCULAR HGB CONC 32 % (32-36); MEAN CORPUSCULAR VOLUME 89 fL (79.0-98.0); MONOCYTES # (AUTO) 0.5 K/uL (0.0-1.0); MONOCYTES % (AUTO) 10.2 % (1.7-9.3); NEUTROPHILS # (AUTO) 3.4 K/uL (1.8-7.7); NEUTROPHILS % (AUTO) 69.8 % (40.0-70.0); PLATELET COUNT (AUTO) 171 K/uL (130-430); RED CELL DISTRIBUTION WIDTH 18.6 % (9.0-15.0)
[2018-06-14] MEDS ORDERED: BISACODYL 10 MG/SUPPOSITORY RC ONE (12:00)
[2018-06-14] MEDS: ONDANSETRON HCL 4 MG/2 ML VIAL IVP PRN ×2 (12:24→17:26)
[2018-06-14 15:08] VITALS: BP_SYST 110
[2018-06-14] MEDS: GABAPENTIN 100 MG CAPSULE PO SCH (17:04)
[2018-06-14] MEDS: CLINDAMYCIN HCL 150 MG CAPSULE PO SCH ×2 (17:52→23:18)
[2018-06-14] MEDS: LEVOFLOXACIN 250 MG/D5W 50 ML IV SCH (18:50)
[2018-06-14 19:30] VITALS: BP_SYST 121
[2018-06-14] MEDS: ENOXAPARIN SODIUM 30 MG/0.3 ML SYRINGE SUBCUT SCH (20:39)
[2018-06-15 00:35] VITALS: BP_SYST 119
[2018-06-15] MEDS: PROMETHAZINE-DM 6.25 MG-15 MG/5 ML UDC PO SCH ×6 (03:00→22:48)
[2018-06-15] MEDS: CLINDAMYCIN HCL 150 MG CAPSULE PO SCH ×4 (06:28→23:58)
[2018-06-15] MEDS: LEVOTHYROXINE SODIUM 0.025 MG TABLET PO SCH (06:28)
[2018-06-15 07:37] VITALS: BP_SYST 114
[2018-06-15 07:58] LABS: ANION GAP 7 (5-15); CALCIUM 8.7 mg/dL (8.4-11.0); CHLORIDE 100 mmol/L (98-107); CREATININE 1.99 mg/dL (0.55-1.30); GLUCOSE 74 mg/dL (70-99); POTASSIUM 4.3 mmol/L (3.5-5.1); SODIUM SERUM 137 mmol/L (136-145); UREA NITROGEN, BLOOD 56 mg/dL (8-21)
[2018-06-15 08:56] LABS: HEMATOCRIT 34.3 % (36-48); HEMOGLOBIN 11.4 g/dL (12.0-16.0); MEAN CORPUSCULAR HEMOGLOBIN 30 pg (27-31); MEAN CORPUSCULAR HGB CONC 33 % (32-36); MEAN CORPUSCULAR VOLUME 89 fL (79.0-98.0); RED BLOOD CELL COUNT(AUTO) 3.85 MIL/uL (4.2-6.2); WHITE BLOOD COUNT (AUTO) 4.9 K/uL (4.8-10.8)
[2018-06-15 08:57] LABS: BASOPHILS % (AUTO) 0.8 % (0.0-2.0); EOSINOPHILS # (AUTO) 0.2 K/uL (0.0-0.4); EOSINOPHILS % (AUTO) 3.5 % (0.0-4.0); LYMPHOCYTES # (AUTO) 0.8 K/uL (1.0-5.5); LYMPHOCYTES % (AUTO) 16.5 % (20.5-51.5); MONOCYTES # (AUTO) 0.5 K/uL (0.0-1.0); MONOCYTES % (AUTO) 10.1 % (1.7-9.3); NEUTROPHILS # (AUTO) 3.4 K/uL (1.8-7.7); NEUTROPHILS % (AUTO) 69.1 % (40.0-70.0); PLATELET COUNT (AUTO) 187 K/uL (130-430); RED CELL DISTRIBUTION WIDTH 18.4 % (9.0-15.0)
[2018-06-15] MEDS: LACTOBACILLUS RHAMNOSUS GG 1 CAP CAPSULE PO SCH ×2 (09:15→21:16)
[2018-06-15] MEDS: CLOPIDOGREL BISULFATE 75 MG TABLET PO SCH (09:15)
[2018-06-15] MEDS: PENTOXIFYLLINE 400 MG TABLET.SA (TRENtal) PO SCH ×2 (09:16→21:17)
[2018-06-15] MEDS: CHOLECALCIFEROL (VITAMIN D3) 2,000 UNIT TABLET PO SCH (09:16)
[2018-06-15] MEDS: DOCUSATE SODIUM 100 MG CAPSULE PO SCH ×2 (09:16→21:16)
[2018-06-15] MEDS: FUROSEMIDE 20 MG/2 ML VIAL IVP SCH (09:17)
[2018-06-15] MEDS: CARVEDILOL 6.25 MG TABLET (COREG) PO SCH ×2 (09:25→21:17)
[2018-06-15 12:13] VITALS: BP_SYST 116
[2018-06-15 16:02] VITALS: BP_SYST 123
[2018-06-15] MEDS: GABAPENTIN 100 MG CAPSULE PO SCH (17:47)
[2018-06-15 20:00] VITALS: BP_SYST 116
[2018-06-15] MEDS: INSULIN REGULAR, HUMAN 100 UNITS/ML, 10 ML VIAL (novoLIN R) SUBCUT PRN (21:15)
[2018-06-15] MEDS: ENOXAPARIN SODIUM 30 MG/0.3 ML SYRINGE SUBCUT SCH (21:16)
[2018-06-15] MEDS: LEVOFLOXACIN 250 MG/D5W 50 ML IV SCH (21:27)
[2018-06-16 01:00] VITALS: BP_SYST 125
[2018-06-16] MEDS: PROMETHAZINE-DM 6.25 MG-15 MG/5 ML UDC PO SCH ×5 (02:42→14:08)
[2018-06-16] MEDS: LEVOTHYROXINE SODIUM 0.025 MG TABLET PO SCH (06:05)
[2018-06-16] MEDS: CLINDAMYCIN HCL 150 MG CAPSULE PO SCH ×3 (06:05→17:03)
[2018-06-16 06:18] LABS: CALCIUM 8.6 mg/dL (8.4-11.0); CREATININE 2.22 mg/dL (0.55-1.30); GLUCOSE 101 mg/dL (70-99); UREA NITROGEN, BLOOD 54 mg/dL (8-21)
[2018-06-16 07:12] LABS: ANION GAP 6 (5-15); CHLORIDE 96 mmol/L (98-107); SODIUM SERUM 131 mmol/L (136-145)
[2018-06-16 08:17] VITALS: BP_SYST 116
[2018-06-16] MEDS: DOCUSATE SODIUM 100 MG CAPSULE PO SCH ×2 (08:30→08:34)
[2018-06-16] MEDS: CHOLECALCIFEROL (VITAMIN D3) 2,000 UNIT TABLET PO SCH (08:30)
[2018-06-16] MEDS: PENTOXIFYLLINE 400 MG TABLET.SA (TRENtal) PO SCH (08:30)
[2018-06-16] MEDS: LACTOBACILLUS RHAMNOSUS GG 1 CAP CAPSULE PO SCH (08:30)
[2018-06-16] MEDS: CLOPIDOGREL BISULFATE 75 MG TABLET PO SCH (08:31)
[2018-06-16] MEDS: CARVEDILOL 6.25 MG TABLET (COREG) PO SCH (08:31)
[2018-06-16] MEDS ORDERED: FUROSEMIDE 20 MG/2 ML VIAL IVP SCH (09:00)
[2018-06-16 12:54] VITALS: BP_SYST 123
[2018-06-16] MEDS: GABAPENTIN 100 MG CAPSULE PO SCH (17:03)
[2018-06-16] MEDS: INSULIN REGULAR, HUMAN 100 UNITS/ML, 10 ML VIAL (novoLIN R) SUBCUT PRN (17:05)
[2018-06-16 17:13] VITALS: BP_SYST 108
[2018-06-16 18:23] VITALS: BP_SYST 108
[2018-06-16] MEDS ORDERED: L.RH1CAP PO (18:28)
[2018-06-16] MEDS ORDERED: CLIN300C11 PO (18:28)
[2018-06-16] MEDS ORDERED: LEVO750T45 PO (18:28)
== END 2018-06-16 18:51 | disposition home health service (06) | DRG 280 ==
LOC: SED 16:00 → STU 18:11 → SMU 06-15 23:28
PROVIDERS: ADMIT Internal Medicine; ATTEND Internal Medicine
DX: I13.0 Hypertensive heart and chronic kidney disease with heart failure and stage 1 through stage 4 chronic kidney disease, or unspecified chronic kidney disease (principal); I21.A1 Myocardial infarction type 2; I50.43 Acute on chronic combined systolic (congestive) and diastolic (congestive) heart failure; J18.9 Pneumonia, unspecified organism; M86.8X6 Other osteomyelitis, lower leg; L03.115 Cellulitis of right lower limb; E44.0 Moderate protein-calorie malnutrition; L97.518 Non-pressure chronic ulcer of other part of right foot with other specified severity; E11.621 Type 2 diabetes mellitus with foot ulcer; W18.39XA Other fall on same level, initial encounter; E78.00 Pure hypercholesterolemia, unspecified; E03.9 Hypothyroidism, unspecified; M19.90 Unspecified osteoarthritis, unspecified site; E11.22 Type 2 diabetes mellitus with diabetic chronic kidney disease; E11.21 Type 2 diabetes mellitus with diabetic nephropathy; N18.9 Chronic kidney disease, unspecified; I25.10 Atherosclerotic heart disease of native coronary artery without angina pectoris; E11.51 Type 2 diabetes mellitus with diabetic peripheral angiopathy without gangrene; E11.42 Type 2 diabetes mellitus with diabetic polyneuropathy; E78.5 Hyperlipidemia, unspecified; E11.65 Type 2 diabetes mellitus with hyperglycemia; D63.8 Anemia in other chronic diseases classified elsewhere; R27.0 Ataxia, unspecified; Y93.89 Activity, other specified; Y92.091 Bathroom in other non-institutional residence as the place of occurrence of the external cause; Y99.8 Other external cause status; Z91.011 Allergy to milk products; Z88.0 Allergy status to penicillin; Z68.28 Body mass index [BMI] 28.0-28.9, adult; Z91.018 Allergy to other foods; Z79.899 Other long term (current) drug therapy; I25.2 Old myocardial infarction; Z95.1 Presence of aortocoronary bypass graft
CPT/HCPCS: 36415; 70450-TC; 71045; 73721; 74018; 80048; 80053; 80061; 81000-TC; 82962; 83880; 84100-TC; 84484; 85025; 86140; 87040-TC; 87081; 93005; 96365; 97110-GP; 97116-GP; 97530-GP; 99285; G0378; J0360; J1650; J1815; J1940; J1956; J2405; J3490

== ENCOUNTER 2018-06-29 16:06 | Inpatient (IN) | payer OTHER, MEDICAID ==
[~2018-06-29] VITALS: Ht 165.1 cm; Wt 60.8 kg
[~2018-06-29 16:06] MED LIST changes: +CARV6.2554 PO; +CLIN300C11 PO
[2018-06-29 16:30] VITALS: BP_SYST 142
[2018-06-29] MEDS ORDERED: HYDROcodone/ACETAMIN 5-325 MG TAB (NORCO/ VICODIN) PO ONE (18:45)
[2018-06-29 19:07] LABS: BASOPHILS % (AUTO) 0.6 % (0.0-2.0); EOSINOPHILS # (AUTO) 0.2 K/uL (0.0-0.4); EOSINOPHILS % (AUTO) 1.9 % (0.0-4.0); HEMATOCRIT 36.8 % (36-48); HEMOGLOBIN 11.9 g/dL (12.0-16.0); LYMPHOCYTES # (AUTO) 0.9 K/uL (1.0-5.5); LYMPHOCYTES % (AUTO) 10.6 % (20.5-51.5); MEAN CORPUSCULAR HEMOGLOBIN 29 pg (27-31); MEAN CORPUSCULAR HGB CONC 32 % (32-36); MEAN CORPUSCULAR VOLUME 89 fL (79.0-98.0); MONOCYTES # (AUTO) 0.6 K/uL (0.0-1.0); MONOCYTES % (AUTO) 7.6 % (1.7-9.3); NEUTROPHILS # (AUTO) 6.8 K/uL (1.8-7.7); NEUTROPHILS % (AUTO) 79.3 % (40.0-70.0); PLATELET COUNT (AUTO) 226 K/uL (130-430); RED BLOOD CELL COUNT(AUTO) 4.13 MIL/uL (4.2-6.2); RED CELL DISTRIBUTION WIDTH 18.8 % (9.0-15.0); WHITE BLOOD COUNT (AUTO) 8.5 K/uL (4.8-10.8)
[2018-06-29 19:18] LABS: ANION GAP 9 (5-15); CHLORIDE 99 mmol/L (98-107); CREATININE 2.35 mg/dL (0.55-1.30); GLUCOSE 216 mg/dL (70-99); POTASSIUM 3.9 mmol/L (3.5-5.1); SODIUM SERUM 134 mmol/L (136-145); UREA NITROGEN, BLOOD 62 mg/dL (8-21)
[2018-06-29 19:23] LABS: ALANINE AMINOTRANSFERASE 16 U/L (12-78); ALBUMIN 2.8 g/dL (3.4-4.8); ASPARTATE AMINOTRANSFERASE 23 U/L (10-37); TOTAL BILIRUBIN 0.7 mg/dL (0.0-1.0)
[2018-06-29] MEDS ORDERED: NACL 0.9% 1,000 ML IV ONE (19:30)
[2018-06-29] MEDS ORDERED: fentaNYL CITRATE/PF 100 MCG/2 ML AMP IVP ONE (19:30)
[2018-06-29] MEDS ORDERED: NALOXONE HCL 2 MG/2 ML SYR ONE (20:46)
[2018-06-29] MEDS ORDERED: DOCUSATE SODIUM 250 MG CAPSULE PO SCH ×2 (21:45→22:00)
[2018-06-29] MEDS ORDERED: NITROGLYCERIN 0.4 MG TAB.SUBL SL PRN ×2 (21:45→22:00)
[2018-06-29] MEDS ORDERED: ACETAMINOPHEN/CODEINE 300 MG-30 MG TABLET PO PRN ×2 (21:45→22:00)
[2018-06-29] MEDS ORDERED: ONDANSETRON HCL 4 MG/2 ML VIAL IVP PRN ×2 (22:00→22:15)
[2018-06-29] MEDS ORDERED: INSULIN REGULAR, HUMAN 100 UNITS/ML, 10 ML VIAL (novoLIN R) SUBCUT PRN ×2 (22:00→22:15)
[2018-06-29] MEDS ORDERED: DEXTROSE 50% JECT 50 ML DISP.SYRIN IVP PRN ×2 (22:00→22:15)
[2018-06-29] MEDS ORDERED: PANTOPRAZOLE SODIUM 40 MG TAB PO SCH (22:00)
[2018-06-29] MEDS ORDERED: traMADol HCL HCL 50 MG TABLET (ULTRAM) PO SCH (22:00)
[2018-06-29] MEDS ORDERED: ENOXAPARIN SODIUM 30 MG/0.3 ML SYRINGE SUBCUT ONE (22:00)
[2018-06-29] MEDS ORDERED: cloNIDine HCL 0.1 MG TABLET PO SCH (22:00)
[2018-06-29] MEDS ORDERED: ACETAMINOPHEN 325 MG TABLET PO PRN ×2 (22:00→22:15)
[2018-06-29] MEDS ORDERED: MORPHINE 2 MG/ML INJ. SYRINGE IVP PRN (22:00)
[2018-06-29] MEDS ORDERED: MORPHINE 4 MG/ML INJ. SYRINGE IVP PRN (22:15)
[2018-06-29] MEDS ORDERED: cloNIDine HCL 0.1 MG TABLET PO PRN (22:15)
[2018-06-29 22:51] VITALS: BP_SYST 133
[2018-06-29 23:22] VITALS: BP_SYST 133
[2018-06-30] MEDS: traMADol HCL HCL 50 MG TABLET (ULTRAM) PO SCH ×4 (00:51→17:04)
[2018-06-30 06:17] LABS: ANION GAP 9 (5-15); CALCIUM 8.2 mg/dL (8.4-11.0); CHLORIDE 102 mmol/L (98-107); CREATININE 1.87 mg/dL (0.55-1.30); GLUCOSE 184 mg/dL (70-99); POTASSIUM 3.9 mmol/L (3.5-5.1); SODIUM SERUM 136 mmol/L (136-145); UREA NITROGEN, BLOOD 48 mg/dL (8-21)
[2018-06-30] MEDS: LEVOTHYROXINE SODIUM 0.025 MG TABLET PO SCH (06:25)
[2018-06-30 06:26] LABS: ALANINE AMINOTRANSFERASE 15 U/L (12-78); ALBUMIN 2.5 g/dL (3.4-4.8); ASPARTATE AMINOTRANSFERASE 22 U/L (10-37); PHOSPHORUS 3.7 mg/dL (2.7-4.5); TOTAL BILIRUBIN 0.6 mg/dL (0.0-1.0)
[2018-06-30 06:30] LABS: INR 1.2 (0.8-1.2); PROTHROMBIN TIME 12.1 SECS (9.5-12.5)
[2018-06-30 06:37] LABS: BASOPHILS % (AUTO) 0.6 % (0.0-2.0); EOSINOPHILS # (AUTO) 0.1 K/uL (0.0-0.4); EOSINOPHILS % (AUTO) 1.7 % (0.0-4.0); HEMATOCRIT 34.7 % (36-48); HEMOGLOBIN 11.2 g/dL (12.0-16.0); LYMPHOCYTES # (AUTO) 0.8 K/uL (1.0-5.5); LYMPHOCYTES % (AUTO) 12.9 % (20.5-51.5); MEAN CORPUSCULAR HEMOGLOBIN 29 pg (27-31); MEAN CORPUSCULAR HGB CONC 32 % (32-36); MEAN CORPUSCULAR VOLUME 89 fL (79.0-98.0); MONOCYTES # (AUTO) 0.5 K/uL (0.0-1.0); MONOCYTES % (AUTO) 8.5 % (1.7-9.3); NEUTROPHILS # (AUTO) 4.8 K/uL (1.8-7.7); NEUTROPHILS % (AUTO) 76.3 % (40.0-70.0); PLATELET COUNT (AUTO) 197 K/uL (130-430); RED BLOOD CELL COUNT(AUTO) 3.89 MIL/uL (4.2-6.2); RED CELL DISTRIBUTION WIDTH 18.5 % (9.0-15.0); WHITE BLOOD COUNT (AUTO) 6.3 K/uL (4.8-10.8)
[2018-06-30] MEDS ORDERED: LEVOTHYROXINE SODIUM 0.025 MG TABLET PO SCH (07:00)
[2018-06-30 08:00] VITALS: BP_SYST 115
[2018-06-30] MEDS: LACTOBACILLUS RHAMNOSUS GG 1 CAP CAPSULE PO SCH ×2 (08:52→21:57)
[2018-06-30] MEDS: OMEGA-3/DHA/EPA/FISH OIL 1 GM CAPSULE PO SCH ×2 (08:52→21:57)
[2018-06-30] MEDS: PANTOPRAZOLE SODIUM 40 MG TAB PO SCH (08:52)
[2018-06-30] MEDS: CHOLECALCIFEROL (VITAMIN D3) 2,000 UNIT TABLET PO SCH (08:52)
[2018-06-30] MEDS: CARVEDILOL 6.25 MG TABLET (COREG) PO SCH ×2 (08:55→21:57)
[2018-06-30] MEDS ORDERED: CLOPIDOGREL BISULFATE 75 MG TABLET PO SCH (09:00)
[2018-06-30] MEDS ORDERED: FENOFIBRATE MICRONIZED PO SCH (09:00)
[2018-06-30] MEDS ORDERED: PENTOXIFYLLINE 400 MG TABLET.SA (TRENtal) PO SCH (09:00)
[2018-06-30] MEDS ORDERED: NON-FORMULARY MEDICATION (Lactobacillus Rhamnosus Gg (Probiotic) 1 EACH) PO SCH (09:00)
[2018-06-30] MEDS ORDERED: CHOLECALCIFEROL (VITAMIN D3) 2,000 UNIT TABLET PO SCH (09:00)
[2018-06-30] MEDS ORDERED: OMEGA-3/DHA/EPA/FISH OIL 1 GM CAPSULE PO SCH (09:00)
[2018-06-30] MEDS ORDERED: CARVEDILOL 6.25 MG TABLET (COREG) PO SCH (09:00)
[2018-06-30 12:02] VITALS: BP_SYST 121
[2018-06-30 16:12] VITALS: BP_SYST 110
[2018-06-30] MEDS ORDERED: GABAPENTIN 100 MG CAPSULE PO SCH (17:00)
[2018-06-30] MEDS: GABAPENTIN 100 MG CAPSULE PO SCH (17:04)
[2018-06-30] MEDS ORDERED: DEXTROSE 50% JECT 50 ML DISP.SYRIN IVP PRN (19:15)
[2018-06-30 20:00] VITALS: BP_SYST 125
[2018-06-30] MEDS ORDERED: ENOXAPARIN SODIUM 30 MG/0.3 ML SYRINGE SUBCUT SCH (21:00)
[2018-07-01 00:29] VITALS: BP_SYST 114
[2018-07-01] MEDS: traMADol HCL HCL 50 MG TABLET (ULTRAM) PO SCH ×5 (00:37→23:42)
[2018-07-01] MEDS: LEVOTHYROXINE SODIUM 0.025 MG TABLET PO SCH (06:09)
[2018-07-01 07:02] LABS: BASOPHILS % (AUTO) 0.5 % (0.0-2.0); EOSINOPHILS # (AUTO) 0.2 K/uL (0.0-0.4); EOSINOPHILS % (AUTO) 2.6 % (0.0-4.0); HEMATOCRIT 39.6 % (36-48); HEMOGLOBIN 12.6 g/dL (12.0-16.0); LYMPHOCYTES # (AUTO) 1.3 K/uL (1.0-5.5); LYMPHOCYTES % (AUTO) 16.5 % (20.5-51.5); MEAN CORPUSCULAR HEMOGLOBIN 29 pg (27-31); MEAN CORPUSCULAR HGB CONC 32 % (32-36); MEAN CORPUSCULAR VOLUME 91 fL (79.0-98.0); MONOCYTES # (AUTO) 0.8 K/uL (0.0-1.0); MONOCYTES % (AUTO) 9.7 % (1.7-9.3); NEUTROPHILS # (AUTO) 5.6 K/uL (1.8-7.7); NEUTROPHILS % (AUTO) 70.7 % (40.0-70.0); PLATELET COUNT (AUTO) 209 K/uL (130-430); RED BLOOD CELL COUNT(AUTO) 4.35 MIL/uL (4.2-6.2); RED CELL DISTRIBUTION WIDTH 18.2 % (9.0-15.0); WHITE BLOOD COUNT (AUTO) 7.9 K/uL (4.8-10.8)
[2018-07-01 07:21] LABS: ANION GAP 9 (5-15); CALCIUM 8.7 mg/dL (8.4-11.0); CHLORIDE 99 mmol/L (98-107); CREATININE 2.13 mg/dL (0.55-1.30); GLUCOSE 128 mg/dL (70-99); POTASSIUM 4.7 mmol/L (3.5-5.1); SODIUM SERUM 132 mmol/L (136-145); UREA NITROGEN, BLOOD 53 mg/dL (8-21)
[2018-07-01 07:36] LABS: THYROID STIMULATING HORMONE 12.19 uIu/mL (0.36-3.74)
[2018-07-01 07:40] VITALS: BP_SYST 128
[2018-07-01] MEDS: OMEGA-3/DHA/EPA/FISH OIL 1 GM CAPSULE PO SCH ×2 (08:29→20:52)
[2018-07-01] MEDS: PANTOPRAZOLE SODIUM 40 MG TAB PO SCH (08:30)
[2018-07-01] MEDS: LACTOBACILLUS RHAMNOSUS GG 1 CAP CAPSULE PO SCH ×2 (08:30→20:53)
[2018-07-01] MEDS: CARVEDILOL 6.25 MG TABLET (COREG) PO SCH ×2 (08:30→20:57)
[2018-07-01] MEDS: CHOLECALCIFEROL (VITAMIN D3) 2,000 UNIT TABLET PO SCH (08:30)
[2018-07-01 13:28] VITALS: BP_SYST 100
[2018-07-01 16:18] VITALS: BP_SYST 109
[2018-07-01] MEDS: GABAPENTIN 100 MG CAPSULE PO SCH (17:23)
[2018-07-01] MEDS: INSULIN LISPRO SLIDING SCALE 100 UNITS/ML VIAL (humaLOG) SUBCUT PRN ×2 (17:25→20:58)
[2018-07-01 20:16] VITALS: BP_SYST 122
[2018-07-01] MEDS: ENOXAPARIN SODIUM 30 MG/0.3 ML SYRINGE SUBCUT SCH (20:57)
[2018-07-02 00:43] VITALS: BP_SYST 100
[2018-07-02] MEDS: traMADol HCL HCL 50 MG TABLET (ULTRAM) PO SCH ×5 (01:32→23:56)
[2018-07-02] MEDS: LEVOTHYROXINE SODIUM 0.075 MG TABLET PO SCH (06:19)
[2018-07-02] MEDS: INSULIN LISPRO SLIDING SCALE 100 UNITS/ML VIAL (humaLOG) SUBCUT PRN ×4 (06:21→21:57)
[2018-07-02 07:50] VITALS: BP_SYST 111
[2018-07-02] MEDS: FENOFIBRATE NANOCRYSTALLIZED 48 MG TABLET (TRICOR) PO SCH (09:05)
[2018-07-02] MEDS: LACTOBACILLUS RHAMNOSUS GG 1 CAP CAPSULE PO SCH ×2 (09:05→21:55)
[2018-07-02] MEDS: PANTOPRAZOLE SODIUM 40 MG TAB PO SCH (09:05)
[2018-07-02] MEDS: CHOLECALCIFEROL (VITAMIN D3) 2,000 UNIT TABLET PO SCH (09:05)
[2018-07-02] MEDS: OMEGA-3/DHA/EPA/FISH OIL 1 GM CAPSULE PO SCH ×2 (09:05→21:55)
[2018-07-02] MEDS: CARVEDILOL 6.25 MG TABLET (COREG) PO SCH (09:06)
[2018-07-02] MEDS: ASPIRIN 81 MG TABLET(ECOTRIN) PO SCH (09:06)
[2018-07-02 11:37] VITALS: BP_SYST 92
[2018-07-02 15:35] VITALS: BP_SYST 104
[2018-07-02] MEDS: GABAPENTIN 100 MG CAPSULE PO SCH (16:58)
[2018-07-02 20:21] VITALS: BP_SYST 112
[2018-07-02] MEDS: PENTOXIFYLLINE 400 MG TABLET.SA (TRENtal) PO SCH (21:55)
[2018-07-02] MEDS: ENOXAPARIN SODIUM 30 MG/0.3 ML SYRINGE SUBCUT SCH (21:57)
[2018-07-03 00:15] VITALS: BP_SYST 123
[2018-07-03] MEDS: LEVOTHYROXINE SODIUM 0.075 MG TABLET PO SCH (06:27)
[2018-07-03] MEDS: traMADol HCL HCL 50 MG TABLET (ULTRAM) PO SCH ×4 (06:27→23:18)
[2018-07-03] MEDS: INSULIN LISPRO SLIDING SCALE 100 UNITS/ML VIAL (humaLOG) SUBCUT PRN ×3 (06:32→20:28)
[2018-07-03 07:47] VITALS: BP_SYST 133
[2018-07-03] MEDS: FENOFIBRATE NANOCRYSTALLIZED 48 MG TABLET (TRICOR) PO SCH (08:49)
[2018-07-03] MEDS: OMEGA-3/DHA/EPA/FISH OIL 1 GM CAPSULE PO SCH ×2 (08:49→20:26)
[2018-07-03] MEDS: CLOPIDOGREL BISULFATE 75 MG TABLET PO SCH (08:49)
[2018-07-03] MEDS: LACTOBACILLUS RHAMNOSUS GG 1 CAP CAPSULE PO SCH ×2 (08:49→20:26)
[2018-07-03] MEDS: PANTOPRAZOLE SODIUM 40 MG TAB PO SCH (08:50)
[2018-07-03] MEDS: CHOLECALCIFEROL (VITAMIN D3) 2,000 UNIT TABLET PO SCH (08:50)
[2018-07-03] MEDS: ASPIRIN 81 MG TABLET(ECOTRIN) PO SCH (08:50)
[2018-07-03 12:40] VITALS: BP_SYST 129
[2018-07-03 16:02] VITALS: BP_SYST 137
[2018-07-03] MEDS: GABAPENTIN 100 MG CAPSULE PO SCH (17:30)
[2018-07-03 19:58] VITALS: BP_SYST 134
[2018-07-03] MEDS: PENTOXIFYLLINE 400 MG TABLET.SA (TRENtal) PO SCH (20:26)
[2018-07-03] MEDS: ENOXAPARIN SODIUM 30 MG/0.3 ML SYRINGE SUBCUT SCH (20:27)
[2018-07-04] MEDS: LEVOTHYROXINE SODIUM 0.075 MG TABLET PO SCH (06:15)
[2018-07-04] MEDS: traMADol HCL HCL 50 MG TABLET (ULTRAM) PO SCH ×3 (06:15→18:00)
[2018-07-04] MEDS: INSULIN LISPRO SLIDING SCALE 100 UNITS/ML VIAL (humaLOG) SUBCUT PRN ×3 (06:18→16:55)
[2018-07-04 08:04] VITALS: BP_SYST 145
[2018-07-04] MEDS: ASPIRIN 81 MG TABLET(ECOTRIN) PO SCH (08:31)
[2018-07-04] MEDS: CLOPIDOGREL BISULFATE 75 MG TABLET PO SCH (08:31)
[2018-07-04] MEDS: PANTOPRAZOLE SODIUM 40 MG TAB PO SCH (08:31)
[2018-07-04] MEDS: CHOLECALCIFEROL (VITAMIN D3) 2,000 UNIT TABLET PO SCH (08:31)
[2018-07-04] MEDS: FENOFIBRATE NANOCRYSTALLIZED 48 MG TABLET (TRICOR) PO SCH (08:32)
[2018-07-04] MEDS: LACTOBACILLUS RHAMNOSUS GG 1 CAP CAPSULE PO SCH (08:32)
[2018-07-04] MEDS: OMEGA-3/DHA/EPA/FISH OIL 1 GM CAPSULE PO SCH (08:32)
[2018-07-04 12:27] VITALS: BP_SYST 121
[2018-07-04] MEDS ORDERED: LACTULOSE 20 GM/30 ML UDC PO ONE (12:30)
[2018-07-04] MEDS ORDERED: DOCUSATE SODIUM 250 MG CAPSULE PO ONE (12:30)
[2018-07-04] MEDS ORDERED: BISACODYL 10 MG/SUPPOSITORY RC PRN (12:45)
[2018-07-04] MEDS ORDERED: BISACODYL 5 MG TABLET.DR (DULCOLAX) PO PRN (12:45)
[2018-07-04 16:01] VITALS: BP_SYST 125
[2018-07-04] MEDS: GABAPENTIN 100 MG CAPSULE PO SCH (16:56)
[2018-07-04 17:52] VITALS: BP_SYST 125
[2018-07-04] MEDS ORDERED: DOCUSATE SODIUM 250 MG CAPSULE PO SCH (21:00)
[2018-07-05] MEDS ORDERED: LACTULOSE 20 GM/30 ML UDC PO SCH (09:00)
== END 2018-07-04 20:50 | DRG 74 ==
LOC: SED 16:06 → SMU 22:58
PROVIDERS: ADMIT Internal Medicine; ATTEND Internal Medicine
DX: G90.8 Other disorders of autonomic nervous system (principal); S42.211A Unspecified displaced fracture of surgical neck of right humerus, initial encounter for closed fracture; I13.0 Hypertensive heart and chronic kidney disease with heart failure and stage 1 through stage 4 chronic kidney disease, or unspecified chronic kidney disease; E44.0 Moderate protein-calorie malnutrition; M86.8X7 Other osteomyelitis, ankle and foot; I50.42 Chronic combined systolic (congestive) and diastolic (congestive) heart failure; E11.22 Type 2 diabetes mellitus with diabetic chronic kidney disease; E03.9 Hypothyroidism, unspecified; E11.42 Type 2 diabetes mellitus with diabetic polyneuropathy; E11.51 Type 2 diabetes mellitus with diabetic peripheral angiopathy without gangrene; H91.90 Unspecified hearing loss, unspecified ear; E11.69 Type 2 diabetes mellitus with other specified complication; N18.2 Chronic kidney disease, stage 2 (mild); F03.90 Unspecified dementia, unspecified severity, without behavioral disturbance, psychotic disturbance, mood disturbance, and anxiety; M19.90 Unspecified osteoarthritis, unspecified site; E78.00 Pure hypercholesterolemia, unspecified; E78.5 Hyperlipidemia, unspecified; I25.10 Atherosclerotic heart disease of native coronary artery without angina pectoris; Z79.4 Long term (current) use of insulin; Z79.890 Hormone replacement therapy; Z82.49 Family history of ischemic heart disease and other diseases of the circulatory system; Z89.429 Acquired absence of other toe(s), unspecified side; Z83.3 Family history of diabetes mellitus; Z95.1 Presence of aortocoronary bypass graft; Z88.0 Allergy status to penicillin; Z91.011 Allergy to milk products; Z91.018 Allergy to other foods; I25.2 Old myocardial infarction; Z90.49 Acquired absence of other specified parts of digestive tract; Z90.710 Acquired absence of both cervix and uterus; W18.39XA Other fall on same level, initial encounter; Y93.89 Activity, other specified; Y92.098 Other place in other non-institutional residence as the place of occurrence of the external cause; Y99.8 Other external cause status; Z68.22 Body mass index [BMI] 22.0-22.9, adult
CPT/HCPCS: 36415; 70450-TC; 71045; 73030; 73502; 80048; 80053; 82962; 83735-TC; 84100-TC; 84443-TC; 84484; 85025; 85610-TC; 85730-TC; 87081; 93005; 96361; 96374; 97110-GP; 97116-GP; 97530-GP; 99285; J1650; J1815; J2310; J3010